=== PATIENT | male | born 1950 | race Caucasian/White ===

== ENCOUNTER 2017-02-24 07:39 | Emergency (ER) | payer MEDICARE, OTHER ==
[2017-02-24 07:43] VITALS: TEMP 96.4
[2017-02-24 08:32] VITALS: BP 159/76; PULSE 98; RESP 18
[2017-02-24] MEDS ORDERED: DEXAMETHASONE SOD PHOSPHATE 10 MG/ML 1 ML VIAL IM STA (08:40)
--- NOTE | 2017-02-24 08:42 | ED ---
General Adult HPI - General Chief complaint: Skin/Abscess/Foreign Body Stated complaint: Gout Time Seen by Provider: 02/24/17 08:15 Source: patient, RN notes reviewed Mode of arrival: ambulatory Limitations: no limitations - History of Present Illness Initial comments: She is a 66-year-old male who presents emergency room today with a chief complaint bilateral hand swelling over the last 3 weeks. He does admit that he has a history of gout states does feel similar but has been more painful. Patient states that he did see his family doctor was started on colchicine approximately 10 days ago. He states it has helped to the other areas of swelling and pain to his knees and down to his feet. States his hands are still feeling swollen and painful. He does admit that it's worse with movements. She states that these symptoms are consistent with gout that he's had in the past. He denies any other complaints or symptoms. Patient denies any recent fever, chills, shortness of breath, chest pain, back pain, abdominal pain, nausea or vomiting, headaches or visual changes, or any other complaints. - Related Data Home Medications Medication Instructions Recorded Confirmed Albuterol Sulfate [Ventolin HFA] 1 puff INHALATION DAILY PRN 06/09/14 10/18/14 Allopurinol 100 mg PO QAM 06/09/14 10/18/14 Lisinopril 20 mg PO QAM 06/09/14 10/18/14 Loratadine 10 mg PO QAM 06/09/14 10/18/14 Simvastatin 40 mg PO HS 06/09/14 10/18/14 aMILoride-HCTZ 5-50 mg [Moduretic 1 each PO QAM 06/09/14 10/18/14 5-50] glipiZIDE [Glipizide] 5 mg PO QAM 06/09/14 10/18/14 Zolpidem [Ambien] 10 mg PO HS PRN 06/11/14 10/18/14 Magnesium Oxide [Mag-Ox] 800 mg PO DAILY 07/13/14 10/18/14 Previous Rx's Medication Instructions Recorded Aspirin EC [Ecotrin Low Dose] 162 mg PO DAILY #30 tablet. 07/18/14 HYDROcodone/APAP 5-325MG [Oneida 1 each PO Q4HR PRN #30 tab 07/18/14 5-325] Metoprolol Tartrate 12.5 mg PO BID #60 tab 07/18/14 Tobramycin 0.3% Ophth Oint [Tobrex 1 applic RIGHT EYE TID #1 tube 10/18/14 0.3% Ophth Oint] Hydrocodone/Acetaminophen [Oneida 1 each PO Q6HR PRN #15 tab 02/24/17 5-325] Allergies Allergy/AdvReac Type Severity Reaction Status Date / Time No Known Allergies Allergy Verified 02/24/17 07:43 Review of Systems ROS Statement: Those systems with pertinent positive or pertinent negative responses have been documented in the HPI. ROS Other: All systems not noted in ROS Statement are negative. Past Medical History Past Medical History: Cancer, Diabetes Mellitus, Hyperlipidemia, Hypertension Additional Past Medical History / Comment(s): gout, hx skin cancer History of Any Multi-Drug Resistant Organisms: None Reported Past Surgical History: Heart Catheterization, Orthopedic Surgery Additional Past Surgical History / Comment(s): ORIF rt hand and ankle Past Anesthesia/Blood Transfusion Reactions: No Reported Reaction Past Psychological History: No Psychological Hx Reported Smoking Status: Former smoker Past Alcohol Use History: Occasional Past Drug Use History: None Reported - Past Family History Father Family Medical History: Cancer General Exam - General Exam Comments Initial Comments: General: The patient is awake and alert, in no distress, and does not appear acutely ill. Neck: The neck is supple, there is no tenderness or JVD. Cardiovascular: There is a regular rate and rhythm. No murmur, rub or gallop is appreciated. Respiratory: Lungs are clear to auscultation, respirations are non-labored, breath sounds are equal. No wheezes, stridor, rales, or rhonchi. Musculoskeletal: Does have some swelling down into the posterior aspect of the hands bilaterally. Hopefully tender over the MCP joints 2 through 5 bilaterally. No other bony tenderness on exam. He shows good range of motion. Sensations are intact. Pulses are equal bilaterally 2+. Strength is 5/5. Neurological: A&O x 3. CN II-XII intact, There are no obvious motor or sensory deficits. Coordination appears grossly intact. Speech is normal. Skin: Skin is warm and dry and no rashes or lesions are noted. No lymphangitic streaking. Psychiatric: Normal mood and affect. Limitations: no limitations Course Vital Signs 02/24/17 07:41 Temperature 96.4 F L Pulse Rate 88 Respiratory 20 Rate Blood Pressure 201/88 O2 Sat by Pulse 97 Oximetry Medical Decision Making - Medical Decision Making Case discussed in detail with attending physician Dr. Villagomez. 66-year-old male presenting for gout. Does not that he's had this in the past but pain is more severe. States is been using Aleve here in there for the pain but is not supposed be taking anti-inflammatories due to kidneys. Patient was for seen 10 days ago from the family doctor for this. Started colchicine. He states it has helped the pain to the knees and ankles but is still expressing discomfort to his hands bilaterally. Patient blood pressure elevated at triage. States he did not take his blood pressure medication. Repeat BP is improved. Patient states he'll take his medication when he gets home. Patient will be given dose of dexamethasone here in emergency room for the inflammation. Will be given a short prescription of Oneida for pain as she states she has taken this in the past. Patient is advised faulted family doctor or return here to the emergency room symptoms increase or worsen. Disposition Clinical Impression: Gout attack Disposition: HOME SELF-CARE Condition: Good Instructions: Gout (ED) Additional Instructions: Please use medication as discussed. Please follow-up with family doctor in the next 2 days of symptoms have not improved. Please return to emergency room if the symptoms increase or worsen or for any other concerns. Prescriptions: Hydrocodone/Acetaminophen [Oneida 5-325] 1 each PO Q6HR PRN #15 tab PRN Reason: Pain Referrals: Robbie Gardiner DO [Primary Care Provider] - 1-2 days Time of Disposition: 08:43
== END 2017-02-24 08:50 | disposition home or self-care (01) ==
LOC: EC 07:39
DX: M10.9 Gout, unspecified (principal); E11.9 Type 2 diabetes mellitus without complications; E78.5 Hyperlipidemia, unspecified; I10 Essential (primary) hypertension; Z85.828 Personal history of other malignant neoplasm of skin; Z87.891 Personal history of nicotine dependence; Z79.84 Long term (current) use of oral hypoglycemic drugs; Z79.899 Other long term (current) drug therapy
CPT/HCPCS: 99283; 96372; J1100

== ENCOUNTER 2017-07-26 06:42 | Day surgery (SDC) | payer MEDICARE, OTHER ==
[2017-07-25 08:41] VITALS: BMI 28.8
[~2017-07-26 06:42] MED LIST: LACTATED RINGERS 1,000 ML IV SCH
[2017-07-26 07:06] VITALS: TEMP 98.5
[2017-07-26 07:10] LABS: Glucose,Whole Blood 95 mg/dL (75-99)
[2017-07-26] MEDS ORDERED: PROPOFOL 10 MG/ML 20 ML VIAL IV ONE (07:50)
[2017-07-26] MEDS ORDERED: LIDOCAINE 1% INJ 10MG/ML (20 ML MDV) ONE (07:50)
--- NOTE | 2017-07-26 07:56 | P.GSHP ---
History of Present Illness H&P Date: 07/26/17 Chief Complaint: Screening colonoscopy This is a 66-year-old male referred from Dr. Robbie Mckeon. Patient rents today for screening colonoscopy. He denies any significant GI complaints. Past Medical History Past Medical History: Cancer, Diabetes Mellitus, Hyperlipidemia, Hypertension, Osteoarthritis (OA) Additional Past Medical History / Comment(s): gout, hx skin cancer,"LEAKY HEART VALVE " History of Any Multi-Drug Resistant Organisms: None Reported Past Surgical History: Heart Catheterization, Orthopedic Surgery Additional Past Surgical History / Comment(s): ORIF rt hand and ankle, repair of a heart valve, Past Anesthesia/Blood Transfusion Reactions: No Reported Reaction Smoking Status: Former smoker - Past Family History Father Family Medical History: Cancer Medications and Allergies Home Medications Medication Instructions Recorded Confirmed Type Lisinopril 10 mg PO BID 06/09/14 07/26/17 History glipiZIDE [Glipizide] 5 mg PO DAILY 06/09/14 07/26/17 History Zolpidem [Ambien] 10 mg PO HS PRN 06/11/14 07/26/17 History Magnesium Oxide [Mag-Ox] 400 mg PO DAILY 07/13/14 07/26/17 History Metoprolol Tartrate 12.5 mg PO BID #60 tab 07/18/14 07/26/17 Rx Allopurinol [Zyloprim] 100 mg PO DAILY 07/25/17 07/26/17 History Aspirin EC [Ecotrin Low Dose] 81 mg PO DAILY 07/25/17 07/26/17 History Cetirizine HCl [Zyrtec] 10 mg PO DAILY 07/25/17 07/26/17 History Furosemide [Lasix] 20 mg PO DAILY 07/25/17 07/26/17 History Rosuvastatin [Crestor] 10 mg PO HS 07/25/17 07/26/17 History traMADol HCL [Ultram] 50 mg PO Q6HR PRN 07/25/17 07/26/17 History Allergies Allergy/AdvReac Type Severity Reaction Status Date / Time No Known Allergies Allergy Verified 07/25/17 08:08 Surgical - Exam Vital Signs Temp Pulse Resp BP Pulse Ox 98.5 F 77 20 163/92 95 07/26/17 06:57 07/26/17 06:57 07/26/17 06:57 07/26/17 06:57 07/26/17 06:57 - General well developed, no distress - Eyes PERRL - ENT normal pinna - Neck no masses - Respiratory normal expansion - Cardiovascular Rhythm: regular - Abdomen Abdomen: soft, non tender Assessment and Plan Assessment: We'll perform screening colonoscopy.
--- NOTE | 2017-07-26 08:23 | P.OP ---
Date of Procedure: 07/26/17 Preoperative Diagnosis: Screening colonoscopy Postoperative Diagnosis: Multiple colonic polyps Procedure(s) Performed: Colonoscopy Anesthesia: MAC Surgeon: Brayan Leary Pathology: other (Multiple colonic polyps) Condition: stable Disposition: PACU Description of Procedure: The patient's placed on the endoscopy table in the lateral position. He received IV sedation. Digital rectal exam was performed which revealed no abnormalities. The flexible colonoscope was then placed patient anus and passed throughout the entire colon. The ileocecal valve was visualized. In the cecum there was a small polyp seen this removed with snare. Scope was withdrawn and the remainder the ascending colon appeared normal. In the proximal transverse colon there was another polyp seen this removed with snare. In the distal transverse colon another polyp seen this removed with snare. At the 80 cm tamir there was a peculiar sessile polyp which was biopsied. Due to the large basic could not be entirely removed. Scope was withdrawn and the remainder the descending colon appeared normal. There was a few scattered diverticuli in the sigmoid colon scope was brought back the rectum and this appeared normal. Scope was withdrawn for patient.
[2017-07-26 08:40] VITALS: RESP 16
[2017-07-26 08:52] VITALS: BP 168/93; PULSE 66
== END 2017-07-26 09:05 | disposition home or self-care (01) ==
LOC: ORWHC2ENDO 06:42
PROVIDERS: ATTEND Surgery
DX: Z12.11 Encounter for screening for malignant neoplasm of colon (principal); D12.3 Benign neoplasm of transverse colon; D12.0 Benign neoplasm of cecum; K57.30 Diverticulosis of large intestine without perforation or abscess without bleeding; E11.9 Type 2 diabetes mellitus without complications; Z79.84 Long term (current) use of oral hypoglycemic drugs; I10 Essential (primary) hypertension; E78.5 Hyperlipidemia, unspecified; M19.90 Unspecified osteoarthritis, unspecified site; M10.9 Gout, unspecified; Z85.828 Personal history of other malignant neoplasm of skin; Z87.891 Personal history of nicotine dependence; Z79.82 Long term (current) use of aspirin; Z79.899 Other long term (current) drug therapy
CPT/HCPCS: 45380; 45385; 88305

== ENCOUNTER → 2017-10-24 | Outpatient (CLI) | payer MEDICARE, OTHER ==
--- NOTE | 2017-10-24 21:13 | MR ---
EXAMINATION TYPE: MR lumbar spine wo con DATE OF EXAM: 10/24/2017 COMPARISON: None HISTORY: 67-year-old male with Low back pain TECHNIQUE: Multiplanar, multisequence images of the lumbar spine were acquired. Findings: Multiple bilateral renal cysts, largest on the right partially visualized at 4.6 cm. Otherwise, no pr evertebral or paravertebral soft tissue abnormality seen. Degenerative changes present at both SI joints. There is S-shaped scoliosis of the lumbar spine. Vertebral body heights are preserved and alignment is maintained. Mild heterogeneous marrow signal without suspicious for marrow replacement. Conus medullaris is normal. Multilevel degenerative disc disease related to desiccated, mildly narrowed disc variable disc bulgin g. Facet arthropathy throughout and some level of the ligamentum flavum thickening. At T12-L1, minimal bulging disc without significant canal or foraminal stenosis. Left-sided facet art hropathy is noted. At L1-L2, minimal bulging discs with left-sided facet arthropathy. No significant canal or foraminal stenosis. At L2-L3, minimal bulging disc with left-sided facet arthropathy. No significant canal or foraminal s tenosis. At L3-L4, mild disc bulge with facet arthropathy but no significant canal or foraminal stenosis. At L4-L5, bulging disc and facet degenerative change changes results in moderate right and mild left neuroforaminal stenosis but left lateral disc osteophyte complex appears to abut and may impinge the left extraforaminal L4 nerve root. There also may be contact of the traversing left L5 nerve root. At L5-S1, bulging disc and facet degenerative change. Changes in result in mild right neuroforaminal stenosis. Right lateral disc osteophyte complex may abut the extraforaminal right L5 nerve root. IMPRESSION: 1. S-shaped scoliosis of the lumbar spine with mild multilevel degenerative disc disease and scattere d facet arthropathy. 2. At L4-L5, changes result in moderate right and mild left neuroforaminal stenosis fell with left la teral disc osteophyte complex possibly impinging the left extraforaminal L4 nerve root. There may als o be contact of the traversing left L5 nerve root at this level. 3. At L5-S1, right lateral disc osteophyte complex may abut the extraforaminal right L5 nerve root. C orrelate for corresponding radicular symptoms. 4. No canal compromise.
== END | disposition home or self-care (01) ==
LOC: RADMRIMAIN 08:12
PROVIDERS: ATTEND Physical Medicine & Rehabilitation
DX: M99.73 Connective tissue and disc stenosis of intervertebral foramina of lumbar region (principal); M51.36 Other intervertebral disc degeneration, lumbar region; M46.96 Unspecified inflammatory spondylopathy, lumbar region; M41.86 Other forms of scoliosis, lumbar region; E11.9 Type 2 diabetes mellitus without complications
CPT/HCPCS: 72148

== ENCOUNTER 2018-11-11 07:20 | Emergency (ER) | payer MEDICARE, OTHER ==
[2018-11-11] MEDS ORDERED: OXYMETAZOLINE 0.05% NASL SPRAY 1 SPRAY BOTTLE NASAL STA (07:44)
[2018-11-11 07:46] VITALS: RESP 16; TEMP 98.6
[2018-11-11] MEDS ORDERED: LISINOPRIL 10 MG TAB PO STA (07:51)
[2018-11-11] MEDS ORDERED: METOPROLOL TARTRATE 12.5 MG TAB PO STA (07:52)
--- NOTE | 2018-11-11 08:01 | ED ---
General Adult HPI - General Chief complaint: ENT Stated complaint: nosebleed Time Seen by Provider: 11/11/18 07:43 Source: patient, RN notes reviewed Mode of arrival: ambulatory Limitations: no limitations - History of Present Illness Initial comments: 68-year-old male presents emergency Department with chief complaint of epistaxis. Patient states started abruptly this morning. He does take aspirin at home. Patient states that nosebleeds in the past but never to this extent. Patient did not take his blood pressure medication this morning. Denies any headache, dizziness, fever, chills, sore throat. - Related Data Home Medications Medication Instructions Recorded Confirmed Lisinopril 10 mg PO BID 06/09/14 07/26/17 glipiZIDE [Glipizide] 5 mg PO DAILY 06/09/14 07/26/17 Zolpidem [Ambien] 10 mg PO HS PRN 06/11/14 07/26/17 Magnesium Oxide [Mag-Ox] 400 mg PO DAILY 07/13/14 07/26/17 Allopurinol [Zyloprim] 100 mg PO DAILY 07/25/17 07/26/17 Aspirin EC [Ecotrin Low Dose] 81 mg PO DAILY 07/25/17 07/26/17 Cetirizine HCl [Zyrtec] 10 mg PO DAILY 07/25/17 07/26/17 Furosemide [Lasix] 20 mg PO DAILY 07/25/17 07/26/17 Rosuvastatin [Crestor] 10 mg PO HS 07/25/17 07/26/17 traMADol HCL [Ultram] 50 mg PO Q6HR PRN 07/25/17 07/26/17 Previous Rx's Medication Instructions Recorded Metoprolol Tartrate 12.5 mg PO BID #60 tab 07/18/14 Allergies Allergy/AdvReac Type Severity Reaction Status Date / Time No Known Allergies Allergy Verified 11/11/18 08:29 Review of Systems ROS Statement: Those systems with pertinent positive or pertinent negative responses have been documented in the HPI. ROS Other: All systems not noted in ROS Statement are negative. Past Medical History Past Medical History: Cancer, Diabetes Mellitus, Hyperlipidemia, Hypertension, Osteoarthritis (OA) Additional Past Medical History / Comment(s): gout, hx skin cancer,"LEAKY HEART VALVE " History of Any Multi-Drug Resistant Organisms: None Reported Past Surgical History: Heart Catheterization, Orthopedic Surgery Additional Past Surgical History / Comment(s): ORIF rt hand and ankle, repair of a heart valve, Past Anesthesia/Blood Transfusion Reactions: No Reported Reaction Past Psychological History: No Psychological Hx Reported Smoking Status: Former smoker - Past Family History Father Family Medical History: Cancer General Exam Limitations: no limitations General appearance: alert, in no apparent distress Head exam: Present: atraumatic, normocephalic, normal inspection Eye exam: Present: normal appearance, PERRL, EOMI. Absent: scleral icterus, conjunctival injection, periorbital swelling ENT exam: Present: normal oropharynx, mucous membranes moist, TM's normal bilaterally, normal external ear exam, other (Mild blood noted from the left nostril, clots noted no site of the bleeding at this time) Neck exam: Present: normal inspection, full ROM. Absent: tenderness, meningismus, lymphadenopathy Respiratory exam: Present: normal lung sounds bilaterally. Absent: respiratory distress, wheezes, rales, rhonchi, stridor Cardiovascular Exam: Present: regular rate, normal rhythm, normal heart sounds. Absent: systolic murmur, diastolic murmur, rubs, gallop, clicks Neurological exam: Present: alert, oriented X3 Skin exam: Present: warm, dry, intact, normal color. Absent: rash Course Vital Signs 11/11/18 07:41 Temperature 98.6 F Pulse Rate 98 Respiratory 16 Rate Blood Pressure 168/95 O2 Sat by Pulse 95 Oximetry Medical Decision Making - Medical Decision Making 68-year-old male presented for epistaxis. Patient was given Afrin, nose clamp. Reevaluated after clots were cleared there's been no rebleeding after 30 minutes of observing. Patient was given blood pressure medications blood pressure is improved. Patient will be discharged will be discharged with no clamp and follow-up with PCP. Disposition Clinical Impression: Epistaxis Disposition: HOME SELF-CARE Condition: Stable Instructions (If sedation given, give patient instructions): Nosebleed (ED) Additional Instructions: Please return to the Emergency Department if symptoms worsen or any other concerns. Is patient prescribed a controlled substance at d/c from ED?: No Referrals: Robbie Gardiner DO [Primary Care Provider] - 1-2 days Time of Disposition: 08:42
[2018-11-11 08:42] VITALS: BP 166/83; PULSE 96
== END 2018-11-11 08:45 | disposition home or self-care (01) ==
LOC: EC 07:20
DX: R04.0 Epistaxis (principal); E11.9 Type 2 diabetes mellitus without complications; E78.5 Hyperlipidemia, unspecified; I10 Essential (primary) hypertension; Z79.84 Long term (current) use of oral hypoglycemic drugs; Z79.82 Long term (current) use of aspirin; Z79.899 Other long term (current) drug therapy; Z87.891 Personal history of nicotine dependence; Z85.828 Personal history of other malignant neoplasm of skin; Z95.5 Presence of coronary angioplasty implant and graft
CPT/HCPCS: 99283

== ENCOUNTER 2019-05-04 04:08 | Inpatient (IN) | payer MEDICARE, OTHER ==
[2019-05-04 04:54] LABS: Basophils % (A) 0 %; Eosinophils # (A) 0.1 k/uL (0-0.7); Eosinophils % (A) 1 %; HGB 14.5 gm/dL (13.0-17.5); Lymphocytes # (A) 0.3 k/uL (1.0-4.8); Lymphocytes % (A) 3 %; MCH 32.4 pg (25.0-35.0); MCHC 33.8 g/dL (31.0-37.0); MCV 95.7 fL (80.0-100.0); Mean Platelet Volume 9.1; Monocytes # (A) 0.1 k/uL (0-1.0); Monocytes % (A) 1 %; Neutrophils # (A) 10.2 k/uL (1.3-7.7); Neutrophils % (A) 95 %; Platelet Count 145 k/uL (150-450); RBC 4.49 m/uL (4.30-5.90); RDW 13.3 % (11.5-15.5); WBC 10.8 k/uL (3.8-10.6)
[2019-05-04 05:03] LABS: Calcium 9.1 mg/dL (8.4-10.2); Potassium 5.3 mmol/L (3.5-5.1); Total Bilirubin 0.9 mg/dL (0.2-1.3); Total Protein 6.6 g/dL (6.3-8.2)
[2019-05-04 05:11] LABS: INR 0.9 (<1.2); Prothrombin Time 9.9 sec (9.0-12.0)
--- NOTE | 2019-05-04 05:20 | XR ---
EXAMINATION TYPE: XR chest 1V portable DATE OF EXAM: 05/04/2019 COMPARISON: 10/25/2015 HISTORY: Pneumonia. Short of breath. TECHNIQUE: FINDINGS: There is no heart failure nor confluent pneumonic infiltrate. Costophrenic angles are clear . There are sternal wires. Thoracic aorta is atheromatous. There are chest leads. IMPRESSION: No active cardiopulmonary disease. Normal heart. No change.
[2019-05-04 05:41] LABS: Partial Thromboplastin Time 20.5 sec (22.0-30.0)
[2019-05-04] MEDS ORDERED: ACETAMINOPHEN TAB 325 MG TAB PO STA (06:39)
--- NOTE | 2019-05-04 07:07 | ED ---
General Adult HPI - General Source: patient, EMS Mode of arrival: EMS Limitations: no limitations - History of Present Illness -: hour(s) Quality: dull Consistency: constant Improves with: none Worsens with: none Associated Symptoms: cough, shortness of breath Treatments Prior to Arrival: none <George Posada - Last Filed: 05/04/19 07:07> <Osmani Leon - Last Filed: 05/04/19 08:42> - General Chief complaint: Chest Pain Stated complaint: JANICE Time Seen by Provider: 05/04/19 04:43 - History of Present Illness Initial comments: Patient is 68-year-old man who comes by ambulance to be evaluated for shortness of breath. The patient states this is been getting worse over the past number of hours. In addition he states that he was feeling so short of breath that when he tried to get up he fell and may have passed out. On arrival here, patient also acknowledges having a cough with occasional sputum. Patient found to have a fever here. He was not aware of this at home. (George Posada) - Related Data Home Medications Medication Instructions Recorded Confirmed Lisinopril 10 mg PO BID 06/09/14 07/26/17 glipiZIDE [Glipizide] 5 mg PO DAILY 06/09/14 07/26/17 Zolpidem [Ambien] 10 mg PO HS PRN 06/11/14 07/26/17 Magnesium Oxide [Mag-Ox] 400 mg PO DAILY 07/13/14 07/26/17 Allopurinol [Zyloprim] 100 mg PO DAILY 07/25/17 07/26/17 Aspirin EC [Ecotrin Low Dose] 81 mg PO DAILY 07/25/17 07/26/17 Cetirizine HCl [Zyrtec] 10 mg PO DAILY 07/25/17 07/26/17 Furosemide [Lasix] 20 mg PO DAILY 07/25/17 07/26/17 Rosuvastatin [Crestor] 10 mg PO HS 07/25/17 07/26/17 traMADol HCL [Ultram] 50 mg PO Q6HR PRN 07/25/17 07/26/17 Previous Rx's Medication Instructions Recorded Metoprolol Tartrate 12.5 mg PO BID #60 tab 07/18/14 Allergies Allergy/AdvReac Type Severity Reaction Status Date / Time No Known Allergies Allergy Verified 11/11/18 08:29 Review of Systems ROS Other: All systems not noted in ROS Statement are negative. Constitutional: Denies: fever, chills Respiratory: Reports: cough, dyspnea. Denies: wheezes Cardiovascular: Denies: chest pain, palpitations, edema Gastrointestinal: Denies: abdominal pain, nausea, vomiting Genitourinary: Denies: dysuria, hematuria Musculoskeletal: Denies: back pain Skin: Denies: rash Neurological: Denies: headache, weakness, numbness <SapnabelkisGeorge - Last Filed: 05/04/19 07:07> ROS Other: All systems not noted in ROS Statement are negative. <Osmani Leon - Last Filed: 05/04/19 08:42> ROS Statement: Those systems with pertinent positive or pertinent negative responses have been documented in the HPI. Past Medical History Past Medical History: Cancer, Diabetes Mellitus, Hyperlipidemia, Hypertension, Osteoarthritis (OA) Additional Past Medical History / Comment(s): gout, hx skin cancer,"LEAKY HEART VALVE " History of Any Multi-Drug Resistant Organisms: None Reported Past Surgical History: Heart Catheterization, Orthopedic Surgery Additional Past Surgical History / Comment(s): ORIF rt hand and ankle, repair of a heart valve, Past Anesthesia/Blood Transfusion Reactions: No Reported Reaction Past Psychological History: No Psychological Hx Reported Smoking Status: Former smoker Past Alcohol Use History: Daily Past Drug Use History: None Reported - Past Family History Father Family Medical History: Cancer <George Posada - Last Filed: 05/04/19 07:07> General Exam Limitations: no limitations General appearance: alert, in no apparent distress Head exam: Present: atraumatic, normocephalic Eye exam: Present: normal appearance. Absent: scleral icterus, conjunctival injection ENT exam: Present: mucous membranes dry Neck exam: Present: normal inspection Respiratory exam: Present: respiratory distress, wheezes. Absent: rales, rhonchi, stridor, accessory muscle use, decreased breath sounds, prolonged expiratory Cardiovascular Exam: Present: regular rate, tachycardia, normal heart sounds. Absent: systolic murmur, diastolic murmur, rubs, gallop GI/Abdominal exam: Present: soft. Absent: distended, tenderness, guarding, rebound, rigid, mass Extremities exam: Present: normal inspection, normal capillary refill. Absent: pedal edema, calf tenderness Back exam: Present: normal inspection. Absent: CVA tenderness (R), CVA tenderness (L) Neurological exam: Present: alert. Absent: oriented X3, CN II-XII intact Skin exam: Present: warm, dry, intact, normal color. Absent: rash <TrachyGeorge - Last Filed: 05/04/19 07:07> Course Vital Signs 05/04/19 05/04/19 05/04/19 04:10 04:13 04:20 Temperature 102.1 F H Pulse Rate 121 H Respiratory 22 Rate Blood Pressure 109/62 109/62 O2 Sat by Pulse 99 96 100 Oximetry 05/04/19 05/04/19 05/04/19 04:30 04:39 04:40 Temperature Pulse Rate 117 H 116 H Respiratory 28 H 20 22 Rate Blood Pressure 109/62 102/58 O2 Sat by Pulse 96 97 Oximetry 05/04/19 05/04/19 05/04/19 04:50 05:00 05:10 Temperature Pulse Rate 120 H 120 H 120 H Respiratory 20 26 H 29 H Rate Blood Pressure 102/58 102/58 105/78 O2 Sat by Pulse 100 96 100 Oximetry 05/04/19 05/04/19 05/04/19 05:20 05:25 05:30 Temperature Pulse Rate 117 H Respiratory Rate Blood Pressure 105/78 105/78 O2 Sat by Pulse 90 L 100 100 Oximetry 05/04/19 05/04/19 05/04/19 05:40 05:50 06:00 Temperature Pulse Rate 113 H 114 H 107 H Respiratory 69 H Rate Blood Pressure 94/58 94/58 94/58 O2 Sat by Pulse 98 98 98 Oximetry 05/04/19 05/04/19 05/04/19 06:07 06:30 06:47 Temperature 101.7 F H Pulse Rate 99 106 H Respiratory 20 Rate Blood Pressure 99/85 100/68 O2 Sat by Pulse 98 99 Oximetry 05/04/19 05/04/19 05/04/19 07:44 08:00 08:15 Temperature 99.1 F Pulse Rate 93 92 89 Respiratory 18 22 Rate Blood Pressure 101/58 O2 Sat by Pulse 98 98 Oximetry 05/04/19 05/04/19 08:29 08:38 Temperature Pulse Rate 86 89 Respiratory 22 Rate Blood Pressure 101/61 O2 Sat by Pulse 99 Oximetry EKG Findings - EKG Results: EKG: interpreted by ERMD, sinus rhythm, normal QRS EKG shows: tachycardia (Rate 121 bpm) - Blocks, [place], Hypertrophy, ST Abn: QRS axis and voltage: right axis deviation (+90 to +180) Repolarization changes or abnormalities: nonspecific abnormality, ST segment, and/or T wave <George Posada - Last Filed: 05/04/19 07:07> Procedures - [place] Protocol (Time Out) Nurse: Dulce Lombardo <George Posada - Last Filed: 05/04/19 07:07> Medical Decision Making - Lab Data Result diagrams: 05/04/19 04:40 05/04/19 04:40 <George Posada - Last Filed: 05/04/19 07:07> - Lab Data Result diagrams: 05/04/19 04:40 05/04/19 04:40 <Osmani Leon - Last Filed: 05/04/19 08:42> - Medical Decision Making I reviewed the CAT scan and noticed that the patient a clavicle fracture. According to the sister he had fallen a slight forward onto his chest onto a table or nightstand. Patient was very tender in the left clavicular head region. (Osmani Leon) - Lab Data Lab Results 05/04/19 05/04/19 05/04/19 Range/Units 04:40 04:40 04:40 WBC 10.8 H (3.8-10.6) k/uL RBC 4.49 (4.30-5.90) m/uL Hgb 14.5 (13.0-17.5) gm/dL Hct 43.0 (39.0-53.0) % MCV 95.7 (80.0-100.0) fL MCH 32.4 (25.0-35.0) pg MCHC 33.8 (31.0-37.0) g/dL RDW 13.3 (11.5-15.5) % Plt Count 145 L (150-450) k/uL Neutrophils % 95 % Lymphocytes % 3 % Monocytes % 1 % Eosinophils % 1 % Basophils % 0 % Neutrophils # 10.2 H (1.3-7.7) k/uL Lymphocytes # 0.3 L (1.0-4.8) k/uL Monocytes # 0.1 (0-1.0) k/uL Eosinophils # 0.1 (0-0.7) k/uL Basophils # 0.0 (0-0.2) k/uL PT 9.9 (9.0-12.0) sec INR 0.9 (<1.2) APTT 20.5 L (22.0-30.0) sec D-Dimer (<0.60) mg/L FEU Sodium 127 L (137-145) mmol/L Potassium 5.3 H (3.5-5.1) mmol/L Chloride 90 L (98-107) mmol/L Carbon Dioxide 22 (22-30) mmol/L Anion Gap 15 mmol/L BUN 44 H (9-20) mg/dL Creatinine 1.01 (0.66-1.25) mg/dL Est GFR (CKD-EPI)AfAm 88 (>60 ml/min/1.73 sqM) Est GFR (CKD-EPI)NonAf 76 (>60 ml/min/1.73 sqM) Glucose 407 H (74-99) mg/dL Lactic Ac Sepsis Rflx Plasma Lactic Acid Ross (0.7-2.0) mmol/L Calcium 9.1 (8.4-10.2) mg/dL Total Bilirubin 0.9 (0.2-1.3) mg/dL AST 31 (17-59) U/L ALT 18 (4-49) U/L Alkaline Phosphatase 111 (38-126) U/L Troponin I (0.000-0.034) ng/mL NT-Pro-B Natriuret Pep pg/mL Total Protein 6.6 (6.3-8.2) g/dL Albumin 3.0 L (3.5-5.0) g/dL Influenza Type A RNA (Not Detectd) Influenza Type B (PCR) (Not Detectd) 05/04/19 05/04/19 05/04/19 Range/Units 04:40 04:40 04:40 WBC (3.8-10.6) k/uL RBC (4.30-5.90) m/uL Hgb (13.0-17.5) gm/dL Hct (39.0-53.0) % MCV (80.0-100.0) fL MCH (25.0-35.0) pg MCHC (31.0-37.0) g/dL RDW (11.5-15.5) % Plt Count (150-450) k/uL Neutrophils % % Lymphocytes % % Monocytes % % Eosinophils % % Basophils % % Neutrophils # (1.3-7.7) k/uL Lymphocytes # (1.0-4.8) k/uL Monocytes # (0-1.0) k/uL Eosinophils # (0-0.7) k/uL Basophils # (0-0.2) k/uL PT (9.0-12.0) sec INR (<1.2) APTT (22.0-30.0) sec D-Dimer (<0.60) mg/L FEU Sodium (137-145) mmol/L Potassium (3.5-5.1) mmol/L Chloride (98-107) mmol/L Carbon Dioxide (22-30) mmol/L Anion Gap mmol/L BUN (9-20) mg/dL Creatinine (0.66-1.25) mg/dL Est GFR (CKD-EPI)AfAm (>60 ml/min/1.73 sqM) Est GFR (CKD-EPI)NonAf (>60 ml/min/1.73 sqM) Glucose (74-99) mg/dL Lactic Ac Sepsis Rflx Plasma Lactic Acid Ross 3.2 H* (0.7-2.0) mmol/L Calcium (8.4-10.2) mg/dL Total Bilirubin (0.2-1.3) mg/dL AST (17-59) U/L ALT (4-49) U/L Alkaline Phosphatase (38-126) U/L Troponin I 0.657 H* (0.000-0.034) ng/mL NT-Pro-B Natriuret Pep 4860 pg/mL Total Protein (6.3-8.2) g/dL Albumin (3.5-5.0) g/dL Influenza Type A RNA (Not Detectd) Influenza Type B (PCR) (Not Detectd) 05/04/19 05/04/19 05/04/19 Range/Units 04:40 04:47 05:33 WBC (3.8-10.6) k/uL RBC (4.30-5.90) m/uL Hgb (13.0-17.5) gm/dL Hct (39.0-53.0) % MCV (80.0-100.0) fL MCH (25.0-35.0) pg MCHC (31.0-37.0) g/dL RDW (11.5-15.5) % Plt Count (150-450) k/uL Neutrophils % % Lymphocytes % % Monocytes % % Eosinophils % % Basophils % % Neutrophils # (1.3-7.7) k/uL Lymphocytes # (1.0-4.8) k/uL Monocytes # (0-1.0) k/uL Eosinophils # (0-0.7) k/uL Basophils # (0-0.2) k/uL PT (9.0-12.0) sec INR (<1.2) APTT (22.0-30.0) sec D-Dimer 12.41 H (<0.60) mg/L FEU Sodium (137-145) mmol/L Potassium (3.5-5.1) mmol/L Chloride (98-107) mmol/L Carbon Dioxide (22-30) mmol/L Anion Gap mmol/L BUN (9-20) mg/dL Creatinine (0.66-1.25) mg/dL Est GFR (CKD-EPI)AfAm (>60 ml/min/1.73 sqM) Est GFR (CKD-EPI)NonAf (>60 ml/min/1.73 sqM) Glucose (74-99) mg/dL Lactic Ac Sepsis Rflx Y Plasma Lactic Acid Ross (0.7-2.0) mmol/L Calcium (8.4-10.2) mg/dL Total Bilirubin (0.2-1.3) mg/dL AST (17-59) U/L ALT (4-49) U/L Alkaline Phosphatase (38-126) U/L Troponin I (0.000-0.034) ng/mL NT-Pro-B Natriuret Pep pg/mL Total Protein (6.3-8.2) g/dL Albumin (3.5-5.0) g/dL Influenza Type A RNA Not Detected (Not Detectd) Influenza Type B (PCR) Not Detected (Not Detectd) Disposition <George Posdaa - Last Filed: 05/04/19 07:07> <Osmani Leon - Last Filed: 05/04/19 08:42> Clinical Impression: Clavicle fracture
[2019-05-04] MEDS ORDERED: ALBUTEROL NEBULIZED 2.5 MG/3 ML INHALATION PRN (07:39)
[2019-05-04] MEDS ORDERED: PNEUMONIA PROTOCOL UTILIZED 1 EACH MISC PO PRN (07:39)
[2019-05-04] MEDS ORDERED: HEPARIN SODIUM,PORCINE 5,000 UNIT/ML 1 ML VIAL IV ONE (07:53)
--- NOTE | 2019-05-04 07:58 | CT ---
EXAMINATION TYPE: CT chest angio for PE DATE OF EXAM: 05/04/2019 COMPARISON: Radiograph same day HISTORY: 68-year-old male Shortness of breath. TECHNIQUE: Contiguous axial scanning of the chest performed with IV Contrast, patient injected with 1 00 mL of Isovue 370. Coronal/sagittal MIP reconstructions performed. CT DLP: 632.7 mGycm Automated exposure control for dose reduction was used. FINDINGS: There is a focal 5.1 x 5.3 cm soft tissue density along the superior aspect of the left sternoclavicu lar joint. Corresponding thickening to the sternal head of the sternocleidomastoid and soft tissue th ickening extending along the presternal region measuring 3.2 x 2.2 cm. Comminuted nondisplaced fractu res left clavicular head. Heart upper limits of normal in size without pericardial effusion. No flattening of the interventricu lar septum or reflux of contrast into the hepatic veins. Aortic valvular calcifications are present. Median sternotomy wires. Aorta normal caliber with mild to moderate atherosclerotic arch calcifications and conventional branc norman anatomy. No thoracic lymphadenopathy by CT size criteria. The patient is breathing during the scan. This markedly degrades assessment for pulmonary emboli. No large central embolus. Many lumbar branch, segmental, and more distal arterial branches are nondiagno stic due to the extent of remaining motion.. No carmelita consolidation or pleural effusion Frontal artifacts. Visualized upper abdomen is partially visualized left renal hypodensities, likely cysts measuring up to at least 3.0 cm. Bones: Some patchy lucencies within the sternum probably chronic postsurgical change. IMPRESSION: 1. Exam degraded by patient breathing during the scan. No large central pulmonary embolus. Many of th e lobar, segmental, and more distal arterial branches are nondiagnostic and emboli in these locations cannot be excluded on the basis of this exam. 2. Focal 5.3 x 5.1 cm soft tissue density along the superior aspect of the left sternoclavicular join t, thickening to the sternal head of the sternocleidomastoid, and contiguous soft tissue thickening e xtending down along the left presternal region measuring 3.2 x 2.2 cm. Corresponding comminuted fract ures left clavicular head. Correlate for hematoma or infectious phlegmon.
[2019-05-04] MEDS: IPRATROPIUM-ALBUTEROL 3 ML NEB INHALATION SCH ×4 (08:14→19:48)
[2019-05-04] MEDS: SODIUM CHLORIDE 0.9% 1,000 ML IV SCH ×4 (08:27→22:55)
[2019-05-04] MEDS: HEPARIN SOD,PORK IN 0.45% NACL 25,000 UNIT in 0.45% NACL 1 250ML.BAG IV SCH (08:32)
[2019-05-04] MEDS: HEPARIN SODIUM,PORCINE 5,000 UNIT/ML 1 ML VIAL SQ SCH ×3 (08:33→22:53)
[2019-05-04] MEDS ORDERED: SODIUM CHLORIDE 0.9% 1,000 ML IV ONE (08:50)
[2019-05-04 09:25] LABS: Glucose,Whole Blood 394 mg/dL (75-99)
[2019-05-04 11:15] LABS: VBG PH 7.35 (7.31-7.41)
[2019-05-04 11:37] LABS: Glucose,Whole Blood 379 mg/dL (75-99)
[2019-05-04] MEDS: AZITHROMYCIN 500 MG TAB PO SCH ×2 (12:13→12:48)
--- NOTE | 2019-05-04 12:42 | P.CRDCN ---
History of Present Illness History of present illness: HISTORY OF PRESENTING ILLNESS This is a pleasant 68-year-old male past medical history significant for valvular heart disease status post bioprosthetic aortic valve replacement in 2014, peripheral vascular disease status post aortic endarterectomy 2015, diabetes mellitus, hypertension and dyslipidemia. He admits to daily alcohol intake. 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 We have been asked to see in consultation for elevated troponin. He initially presented to the emergency department with symptoms of shortness of breath, cough and fall. He is unsure. It corresponding loss of consciousness. He states that he lost his balance falling on the left side of his body. He was noted to be febrile on admission with a temperature of 101.7. He is seen and examined resting comfortably in bed on BiPAP. He is laying flat in no acute distress. He denies symptoms of chest pain, dizziness or palpitations. He states his breathing is better since starting BiPAP. DIAGNOSTICS EKG reveals sinus tachycardia with a first-degree AV block and a rightward axis heart rate of 121. Chest xray negative for an acute cardiopulmonary process. CTA negative for pulmonary embolism with a focal soft tissue density along the superior aspect of the left sternoclavicular joint with corresponding thickening of the sternal head of this sternocleidomastoid soft tissue thickening extending along the pre-sternal region with a comminuted nondisplaced fracture of the left clavicular head. Laboratory reviewed, WBC 10.8, hemoglobin 14.5, platelets 145, d-dimer 12.41, sodium 127, potassium 5.3, creatinine 1.01 with a GFR 76, lactic acid on admission 3. 2 repeat 1.0, initial troponin 0.657 and NT proBNP 4860. Current cardiac medications include aspirin 81 mg daily, Lasix 20 mg daily, lisinopril 10 mg twice a day, Lopressor 12.5 mg twice a day and rosuvastatin 10 mg at bedtime. REVIEW OF SYSTEMS At the time of my exam: CONSTITUTIONAL: Denies fever or chills. CARDIOVASCULAR: Denies chest pain, shortness of breath, orthopnea, PND or palpitations. RESPIRATORY: Denies cough. GASTROINTESTINAL: Denies abdominal pain, diarrhea, constipation, nausea or vomiting. MUSCULOSKELETAL: Denies myalgias. NEUROLOGIC: Denies numbness, tingling or weakness. ENDOCRINE: Denies fatigue, weight change, polydipsia or polyurina. GENITOURINARY: Denies burning, hematuria or urgency with micturation. HEMATOLOGIC: Denies history of anemia or bleeding. PHYSICAL EXAMINATION Blood pressure 101/61 heart rate 89 afebrile and maintaining oxygen saturation on BiPAP. CONSTITUTIONAL: No apparent distress. HEENT: Head is normocephalic. Pupils are equal, round. Sclerae anicteric. Mucous membranes of the mouth are moist. No JVD. No carotid bruit. CHEST EXAMINATION: Lungs are clear to auscultation. No chest wall tenderness is noted on palpation or with deep breathing. HEART EXAMINATION: Regular rate and rhythm. S1, S2 heard. Faint systolic ejection murmur at the base, no gallops or rub. ABDOMEN: Soft, nontender. Positive bowel sounds. EXTREMITIES: 2+ peripheral pulses, no lower extremity edema and no calf tenderness. NEUROLOGIC EXAMINATION: Patient is awake, alert and oriented x3. ASSESSMENT Elevated troponin, may be related to underlying infectious process with fever and lactic acidosis. Lactic acidosis Febrile illness Hyponatremia Leukocytosis Thrombocytopenia History of valvular heart disease status post bioprosthetic aortic valve replacement Hypertension Dyslipidemia Peripheral vascular disease Alcohol abuse PLAN Continue to trend troponins. Continue heparin infusion. Obtain 2-D echocardiogram and Doppler study to assess cardiac structure and function. Resume aspirin, rosuvastatin, lisinopril, Lopressor and Lasix as previously ordered. Further recommendations to follow based upon clinical course. Thank you kindly for this consultation. Nurse Practitioner note has been reviewed, I agree with a documented findings and plan of care. Patient was seen and examined. Past Medical History Past Medical History: Cancer, Diabetes Mellitus, Hyperlipidemia, Hypertension, Osteoarthritis (OA) Additional Past Medical History / Comment(s): gout, hx skin cancer,"LEAKY HEART VALVE " History of Any Multi-Drug Resistant Organisms: None Reported Past Surgical History: Heart Catheterization, Orthopedic Surgery Additional Past Surgical History / Comment(s): ORIF rt hand and ankle, repair of a heart valve, Past Anesthesia/Blood Transfusion Reactions: No Reported Reaction Past Psychological History: No Psychological Hx Reported Smoking Status: Former smoker Past Alcohol Use History: Daily Past Drug Use History: None Reported - Past Family History Father Family Medical History: Cancer Medications and Allergies Home Medications Medication Instructions Recorded Confirmed Type Lisinopril 15 mg PO HS 06/09/14 05/04/19 History Zolpidem [Ambien] 10 mg PO HS 06/11/14 05/04/19 History Magnesium Oxide [Mag-Ox] 400 mg PO DAILY 07/13/14 05/04/19 History Metoprolol Tartrate 12.5 mg PO BID #60 tab 07/18/14 05/04/19 Rx Allopurinol [Zyloprim] 100 mg PO DAILY 07/25/17 05/04/19 History Aspirin EC [Ecotrin Low Dose] 81 mg PO DAILY 07/25/17 05/04/19 History Cetirizine HCl [Zyrtec] 10 mg PO DAILY 07/25/17 05/04/19 History Furosemide [Lasix] 20 mg PO DAILY 07/25/17 05/04/19 History Rosuvastatin [Crestor] 10 mg PO HS 07/25/17 05/04/19 History Albuterol Sulfate [Ventolin HFA] 2 puff INHALATION RT-QID PRN 05/04/19 05/04/19 History Budesonide [Pulmicort] 0.5 mg INHALATION RT-BID 05/04/19 05/04/19 History Empagliflozin [Jardiance] 10 mg PO DAILY 05/04/19 05/04/19 History HYDROcodone/APAP 5-325MG [[place] 1 tab PO Q4H PRN 05/04/19 05/04/19 History 5-325] Montelukast [Singulair] 10 mg PO HS 05/04/19 05/04/19 History glipiZIDE [Glucotrol] 10 mg PO AC-BID 05/04/19 05/04/19 History predniSONE See Taper PO DAILY 05/04/19 05/04/19 History Allergies Allergy/AdvReac Type Severity Reaction Status Date / Time No Known Allergies Allergy Verified 11/11/18 08:29 Physical Exam Vitals: Vital Signs Temp Pulse Resp BP Pulse Ox 05/04/19 08:38 89 22 101/61 99 05/04/19 08:29 86 05/04/19 08:15 89 05/04/19 08:00 92 22 101/58 98 05/04/19 07:44 99.1 F 93 18 98 05/04/19 06:47 106 H 20 100/68 99 05/04/19 06:30 99 99/85 98 05/04/19 06:07 101.7 F H 05/04/19 06:00 107 H 94/58 98 05/04/19 05:50 114 H 94/58 98 05/04/19 05:40 113 H 69 H 94/58 98 05/04/19 05:30 117 H 105/78 100 05/04/19 05:25 100 05/04/19 05:20 105/78 90 L 05/04/19 05:10 120 H 29 H 105/78 100 05/04/19 05:00 120 H 26 H 102/58 96 05/04/19 04:50 120 H 20 102/58 100 05/04/19 04:40 116 H 22 102/58 97 05/04/19 04:39 20 05/04/19 04:30 117 H 28 H 109/62 96 05/04/19 04:20 109/62 100 05/04/19 04:13 96 05/04/19 04:10 102.1 F H 121 H 22 109/62 99 Intake and Output 05/03/19 05/04/19 05/04/19 21:59 06:59 14:59 Other: Weight Results 05/04/19 04:40 05/04/19 04:40 Cardiac Enzymes 05/04/19 05/04/19 Range/Units 04:40 04:40 AST 31 (17-59) U/L Troponin I 0.657 H* (0.000-0.034) ng/mL Coagulation 05/04/19 Range/Units 04:40 PT 9.9 (9.0-12.0) sec APTT 20.5 L (22.0-30.0) sec CBC 05/04/19 Range/Units 04:40 WBC 10.8 H (3.8-10.6) k/uL RBC 4.49 (4.30-5.90) m/uL Hgb 14.5 (13.0-17.5) gm/dL Hct 43.0 (39.0-53.0) % Plt Count 145 L (150-450) k/uL Comprehensive Metabolic Panel 05/04/19 Range/Units 04:40 Sodium 127 L (137-145) mmol/L Potassium 5.3 H (3.5-5.1) mmol/L Chloride 90 L (98-107) mmol/L Carbon Dioxide 22 (22-30) mmol/L BUN 44 H (9-20) mg/dL Creatinine 1.01 (0.66-1.25) mg/dL Glucose 407 H (74-99) mg/dL Calcium 9.1 (8.4-10.2) mg/dL AST 31 (17-59) U/L ALT 18 (4-49) U/L Alkaline Phosphatase 111 (38-126) U/L Total Protein 6.6 (6.3-8.2) g/dL Albumin 3.0 L (3.5-5.0) g/dL Current Medications Generic Name Dose Route Start Last Admin Trade Name Freq PRN Reason Stop Dose Admin Albuterol Sulfate 2.5 mg 05/04/19 07:39 Ventolin Nebulized INHALATION RT-Q4H PRN Shortness Of Breath Or Wheezing Albuterol/Ipratropium 3 ml 05/04/19 08:00 05/04/19 08:14 Duoneb 0.5 Mg-3 Mg/3 Ml Soln INHALATION 3 ml RT-QID DELISA Administration Azithromycin 500 mg 05/04/19 09:00 Zithromax PO DAILY DELISA Heparin Sodium (Porcine) 5,000 unit 05/04/19 08:00 05/04/19 08:33 Heparin SQ Not Given Q8HR DELISA Sodium Chloride 1,000 mls @ 20 mls/hr 05/04/19 07:45 05/04/19 08:27 Saline 0.9% IV 20 mls/hr .Q24H DELISA Administration Ceftriaxone Sodium 1 gm/ 50 mls @ 100 mls/hr 05/05/19 09:00 Sodium Chloride IVPB 05/08/19 09:01 Q24HR DELISA Heparin Sodium/Sodium Chloride 250 mls @ 6.804 mls/hr 05/04/19 08:00 05/04/19 08:32 25,000 unit/ Sodium Chloride IV 12 units/kg/hr .Q24H DELISA 6.804 mls/hr Administration Protocol 12 UNITS/KG/HR Sodium Chloride 1,000 mls @ 130 mls/hr 05/04/19 09:00 05/04/19 08:55 Saline 0.9% IV 130 mls/hr .Q7H42M DELISA Administration Miscellaneous Information 1 each 05/04/19 07:39 Pneumonia Protocol Utilized PO ONCE PRN Per Protocol Intake and Output 05/03/19 05/04/19 05/04/19 21:59 06:59 14:59 Other: Weight 05/04/19 04:40 05/04/19 04:40
[2019-05-04] MEDS: INSULIN ASPART (NovoLOG) 100 UNIT/ML VIAL SQ SCH ×2 (12:48→17:36)
[2019-05-04] MEDS: ASPIRIN 81 MG PO SCH (12:49)
[2019-05-04] MEDS: ATORVASTATIN 40 MG TAB PO SCH (12:49)
[2019-05-04] MEDS ORDERED: VANCOMYCIN 1,000 MG in SODIUM CHLORIDE 0.9% 250 ML IVPB STA (15:02)
--- NOTE | 2019-05-04 15:10 | P.CNPUL ---
History of Present Illness Consult date: 05/04/19 Reason for consult: dyspnea History of present illness: This is a pleasant 68-year-old male past medical history significant for valvular heart disease status post bioprosthetic aortic valve replacement in 2014, peripheral vascular disease status post aortic endarterectomy 2014, diabetes mellitus, hypertension and dyslipidemia. He admits to daily alcohol intake. He does not follow in the office with a facilities clerk. We have been asked to see in consultation for elevated troponin. He initially presented to the emergency department with symptoms of shortness of breath, cough and fall. He is unsure. It corresponding loss of consciousness. He states that he lost his balance falling on the left side of his body. He was noted to be febrile on admission with a temperature of 101.7. The patient states that he was sick since March 2019. Back then he was in [place]. On and off he was having fever. He was seen in [place] emergency department and he was given treatment and the exact treatment is not known to us at this point in time. The patient himself is a very poor historian. I think is lethargic and somewhat e ncephalopathic and is unable to volunteer detailed history. He came in to the hospital regarding these ongoing problems. The hospital, the patient was found to have a white cell count of 10.8. His initial lactic acid level was 3 and it dropped down to 1.0. Troponin was slightly positive at 0.657. ProBNP level was 4860. CT angiogram of the chest was done and was negative for pulmonary embolis m. There was a soft tissue collection superior aspect of the left sternoclavicular joint at the level of the third and had with some tissue thickening and there is involvement of the sternum and there is also recommended the undisplaced fracture of the left clavicle. On examination, the patient is sore in the involved area without any significant erythema or warmth. For now he is on examination of Rocephin and Zithromax. He does have a cardiac murmur. He has a bioprosthetic aortic valve that was placed in 2014. Review of Systems Constitutional: Reports fatigue, Reports fever, Reports lethargy, Reports weakness Eyes: bilateral photophobia, denies as per HPI, denies blurred vision, denies bulging eye, denies decreased vision, denies diplopia, denies discharge, denies dry eye, denies irritation, denies itching, denies pain, denies loss of peripheral vision, denies loss of vision, denies tunnel vision/blind spots Ears: deny: decreased hearing, ear discharge, earache, tinnitus Ears, nose, mouth and throat: Denies headache, Denies sore throat Cardiovascular: Reports chest pain (Chest wall pain), Reports decreased exercise tolerance, Reports dyspnea on exertion Respiratory: Reports cough, Reports dyspnea Gastrointestinal: Reports as per HPI Genitourinary: Reports as per HPI Musculoskeletal: Reports as per HPI Musculoskeletal: absent: ankle pain, ankle stiffness, ankle swelling Neurological: Reports weakness Psychiatric: Reports as per HPI Endocrine: Reports as per HPI, Reports fatigue Hematologic/Lymphatic: Reports as per HPI Allergic/Immunologic: Reports as per HPI Past Medical History Past Medical History: Cancer, Diabetes Mellitus, Hyperlipidemia, Hypertension, Osteoarthritis (OA) Additional Past Medical History / Comment(s): aortic valve replacement with a bioprosthetic aortic valve back in 2014, history of skin cancer, history of gout, hyperlipidemia, hypertension, OA, diabetes mellitus History of Any Multi-Drug Resistant Organisms: None Reported Past Surgical History: Heart Catheterization, Orthopedic Surgery Additional Past Surgical History / Comment(s): ORIF rt hand and ankle, aortic valve replacement/bioprosthetic aortic valve Past Anesthesia/Blood Transfusion Reactions: No Reported Reaction Past Psychological History: No Psychological Hx Reported Smoking Status: Former smoker Past Alcohol Use History: Daily Past Drug Use History: None Reported - Past Family History Father Family Medical History: Cancer Medications and Allergies Home Medications Medication Instructions Recorded Confirmed Type Lisinopril 15 mg PO HS 06/09/14 05/04/19 History Zolpidem [Ambien] 10 mg PO HS 06/11/14 05/04/19 History Magnesium Oxide [Mag-Ox] 400 mg PO DAILY 07/13/14 05/04/19 History Metoprolol Tartrate 12.5 mg PO BID #60 tab 07/18/14 05/04/19 Rx Allopurinol [Zyloprim] 100 mg PO DAILY 07/25/17 05/04/19 History Aspirin EC [Ecotrin Low Dose] 81 mg PO DAILY 07/25/17 05/04/19 History Cetirizine HCl [Zyrtec] 10 mg PO DAILY 07/25/17 05/04/19 History Furosemide [Lasix] 20 mg PO DAILY 07/25/17 05/04/19 History Rosuvastatin [Crestor] 10 mg PO HS 07/25/17 05/04/19 History Albuterol Sulfate [Ventolin HFA] 2 puff INHALATION RT-QID PRN 05/04/19 05/04/19 History Budesonide [Pulmicort] 0.5 mg INHALATION RT-BID 05/04/19 05/04/19 History Empagliflozin [Jardiance] 10 mg PO DAILY 05/04/19 05/04/19 History HYDROcodone/APAP 5-325MG [[place] 1 tab PO Q4H PRN 05/04/19 05/04/19 History 5-325] Montelukast [Singulair] 10 mg PO HS 05/04/19 05/04/19 History glipiZIDE [Glucotrol] 10 mg PO AC-BID 05/04/19 05/04/19 History predniSONE See Taper PO DAILY 05/04/19 05/04/19 History Allergies Allergy/AdvReac Type Severity Reaction Status Date / Time No Known Allergies Allergy Verified 11/11/18 08:29 Physical Exam Vitals: Vital Signs Temp Pulse Resp BP Pulse Ox 05/04/19 11:56 92 05/04/19 11:36 95 05/04/19 08:38 89 22 101/61 99 05/04/19 08:29 86 05/04/19 08:15 89 05/04/19 08:00 92 22 101/58 98 05/04/19 07:44 99.1 F 93 18 98 05/04/19 06:47 106 H 20 100/68 99 05/04/19 06:30 99 99/85 98 05/04/19 06:07 101.7 F H 05/04/19 06:00 107 H 94/58 98 05/04/19 05:50 114 H 94/58 98 05/04/19 05:40 113 H 69 H 94/58 98 05/04/19 05:30 117 H 105/78 100 05/04/19 05:25 100 05/04/19 05:20 105/78 90 L 05/04/19 05:10 120 H 29 H 105/78 100 05/04/19 05:00 120 H 26 H 102/58 96 05/04/19 04:50 120 H 20 102/58 100 05/04/19 04:40 116 H 22 102/58 97 05/04/19 04:39 20 05/04/19 04:30 117 H 28 H 109/62 96 05/04/19 04:20 109/62 100 05/04/19 04:13 96 05/04/19 04:10 102.1 F H 121 H 22 109/62 99 Intake and Output 05/03/19 05/04/19 05/04/19 21:59 06:59 14:59 Other: Weight Gen. appearance lethargic sleepy for historian in general does not seem to be in acute respiratory distress. Head exam was generally normal. There was no scleral icterus or corneal arcus. Mucous membranes were moist. Neck was supple and without jugular venous distension, thyromegaly, or carotid bruits. Carotids were easily palpable bilaterally. There was no adenopathy. There is some soreness along the left clavicular area without any major deformity. Lungs sounds are diminished and there is some few scattered expiratory wheeze. The area over the superior part of the sternum is nonswollen. There is tenderness upon palpation. No warmth. No purulent material can be seen within that area. Heart sounds are regular, positive S1-S2 and the patient has systolic ejection murmur grade 4/6 mainly affects and this is radiating to his neck. The sternum is dry clean and intact. There is palpation of the sternum at the level of the soft tissue collection as stated on the CAT scan. Abdominal exam revealed normal bowel sounds. The abdomen was soft, non-tender, and without masses, organomegaly, or appreciable enlargement of the abdominal aorta. Examination of the extremities revealed easily palpable radial, femoral and pedal pulses. There was no cyanosis, clubbing or edema. Examination of the skin revealed no evidence of significant rashes, suspicious appearing nevi or other concerning lesions. Neurologically following commands essentially simple commands anything communicated he is a very poor historian. Insight and memory is affected. Results - Laboratory Findings CBC and BMP: 05/04/19 04:40 05/04/19 04:40 PT/INR, D-dimer PT 9.9 sec (9.0-12.0) 05/04/19 04:40 INR 0.9 (<1.2) 05/04/19 04:40 D-Dimer 12.41 mg/L FEU (<0.60) H 05/04/19 04:40 Abnormal lab findings: Abnormal Labs 05/04/19 05/04/19 05/04/19 04:40 04:40 04:40 WBC 10.8 H Plt Count 145 L Neutrophils # 10.2 H Lymphocytes # 0.3 L APTT 20.5 L D-Dimer VBG pCO2 VBG HCO3 Sodium 127 L Potassium 5.3 H Chloride 90 L BUN 44 H Glucose 407 H POC Glucose (mg/dL) Plasma Lactic Acid Ross Troponin I Albumin 3.0 L 05/04/19 05/04/19 05/04/19 04:40 04:40 04:40 WBC Plt Count Neutrophils # Lymphocytes # APTT D-Dimer 12.41 H VBG pCO2 VBG HCO3 Sodium Potassium Chloride BUN Glucose POC Glucose (mg/dL) Plasma Lactic Acid Ross 3.2 H* Troponin I 0.657 H* Albumin 05/04/19 05/04/19 05/04/19 09:23 10:56 11:35 WBC Plt Count Neutrophils # Lymphocytes # APTT D-Dimer VBG pCO2 34 L VBG HCO3 18 L Sodium Potassium Chloride BUN Glucose POC Glucose (mg/dL) 394 H 379 H Plasma Lactic Acid Ross Troponin I Albumin - Diagnostic Findings Chest x-ray: image reviewed CT scan - chest: image reviewed Assessment and Plan Plan: 1 febrile illness , subacute with ongoing episodes of fever with a temperature of 10 2.1. Currently afebrile. Obviously this raises concern for underlying sepsis. No evidence of pneumonia. No obvious source of infection. However, one area of concern is a soft tissue density that is present over the sternum as stated on the CAT scan. This area is present along the left sternoclavicular joint measuring 5 x 5.3 cm in size. Consider underlying abscess. Underlying infective endocarditis cannot be completely excluded. The patient has a cardiac murmur with a bioprosthetic aortic valve. No open wounds or sores. 2 mild lactic acidosis, improved 3 fever 4 hyponatremia, likely acute 5 aortic valve replacement/bioprosthetic aortic valve in 2014 6 lethargy and diminished level of consciousness secondary to above 7 diabetes mellitus type 2 8 hypertension 9 hyperlipidemia 10 gout 11 suspected COPD 12 troponin leak likely secondary to above currently on IV heparin 13 . Peripheral vascular disease 14 history of alcoholism 15. Clavicular fracture secondary to fall Plan Check pro calcitonin level Check 2 sets of blood cultures Cover the patient with IV Rocephin and vancomycin and discontinue the Zithromax Echocardiogram to assess LV function, assess valve function and rule out endocarditis Obtain a blood gas Hold on the BiPAP treatment for now. He is on oxygen at 3 L per minute nasal cannula. Continue IV fluids at 130 mL an hour and monitor the sodium level every 6 hours. Consult IR for the possibility of a drainage of the soft tissue/abscess collection in the left sternoclavicular area
[2019-05-04] MEDS: FUROSEMIDE 20 MG TAB PO SCH (16:47)
[2019-05-04 16:48] LABS: Glucose,Whole Blood 419 mg/dL (75-99)
[2019-05-04 17:14] LABS: ABG Base Excess -5.1 mmol/L; ABG HCO3 19 mmol/L (21-25); ABG Oxygen Saturation 97.6 % (94-97); ABG PCO2 30 mmHg (35-45); ABG PH 7.42 (7.35-7.45); ABG PO2 101 mmHg (83-108); ABG TCO2 20 mmol/L (19-24); Allen Test Performed? Yes
[2019-05-04] MEDS ORDERED: INSULIN ASPART (NovoLOG) 100 UNIT/ML VIAL SQ ONE (17:34)
--- NOTE | 2019-05-04 18:20 | HP ---
HISTORY AND PHYSICAL DATE OF SERVICE: 05/04/2019 CHIEF COMPLAINT: Shortness of breath. I am covering for Dr. Gardiner. HISTORY OF PRESENT ILLNESS: This 68-year-old gentleman with a past medical history of multiple medical problems including diabetes, hypertension, hyperlipidemia, history of DJD, history of aortic valve replacement, bioprosthetic valve, history of EtOH, history of gout, hyperlipidemia being followed by Dr. Robbie Gardiner in the outpatient setting, the patient is complaining of shortness of breath. The patient also had significant peripheral vascular disease. The patient also had history of significant alcohol intake. The patient apparently tried to get up and fell because of balance problems and the patient has also had a fever, present on admission and the patient is admitted for further evaluation and treatment. After admission, patient had multiple lab abnormalities, including increased WBC, hyponatremia, troponins elevated up to 0.6657, glucose also elevated more than 400. negative and CT scan of the chest showed a focal 5.3 x 5.1 cm soft tissue density along the superior aspect of the left sternoclavicular joint and thickening of the sternal head of the sternocleidomastoid and contiguous soft tissue thickening extending down along the left parasternal region measuring about 3.2 x 2.2 cm also. Corresponding comminuted fracture of the left clavicle head also noted raising the possibility of hematoma infectious phlegmon. The patient being closely monitored. Currently the patient is rather drowsy and is being closely monitored. Patient started on broad spectrum IV antibiotics. Most of the history taken from my discussion with staff and review of chart at this time. PAST MEDICAL HISTORY: Past medical history of diabetes type 2, history of hypertension, history of DJD, history of aortic valve replacement, bioprosthetic valve replacement. MEDICATIONS: Prior to admission include home medications are: 1. Prednisone daily. 2. Glucotrol 10 mg a.c. b.i.d. 3. Ambien 10 mg q.h.s. 4. Crestor 10 mg q.h.s. 5. Singulair 10 mg q.h.s. 6. Metoprolol 12.5 mg p.o. b.i.d. 7. Magnesium oxide 400 mg p.o. daily. 8. Lisinopril 15 mg q.h.s. 9. [place] 5 mg q.4 p.r.n. 10.Lasix 20 mg p.o. daily. 11.Jardiance 10 mg p.o. daily. 12.Zyrtec 10 mg p.o. daily. 13.Pulmicort 0.5 mg b.i.d. 14.Ecotrin 81 mg p.o. daily. 15.Zyloprim 100 mg p.o. daily. 16.Ventolin 2 puffs q.i.d. p.r.n. ALLERGIES: None. FAMILY HISTORY: Family history of cancer in the family. SOCIAL HISTORY: Per chart, previous history of smoking, alcohol intake. REVIEW OF SYSTEMS: Could not be taken because the patient's change in mental status. PHYSICAL EXAM: Pulse is 90. The blood pressure 101/64, respirations 17, temperature 97.8, pulse ox 98% on BiPAP. HEENT: Conjunctivae normal. Oral mucosa moist. T-max 101.7. NECK is no jugular venous distention. CARDIOVASCULAR SYSTEMS: S1, S2 muffled. RESPIRATION: Breath sounds diminished in the bases. Bilateral scattered rhonchi and crackles. ABDOMEN: Soft, nontender. No mass palpable. LEGS: No edema. No swelling. NERVOUS SYSTEM: Diffusely weak. LYMPHATICS: No lymph nodes palpable in the neck, axillae or groin. SKIN: No ulcer, no rashes and no bleeding. JOINTS: No active deforming arthropathy. LABS: WBC 10.8, hemoglobin 14.5, otherwise INR is 0.9 and VBG 7.35. Sodium 127, potassium 5.3 and BUN is 44. Glucose is 407. Troponin 0.05, 0657. ASSESSMENT: 1. Possible chronic obstructive pulmonary disease acute exacerbation with acute purulent tracheobronchitis with possible sepsis with hypoxic respiratory failure. 2. Focal 5.3 x 5.1 cm soft tissue density along the superior aspect of the left sternocleidomastoid with thickening and continuous soft tissue swelling extending down along the parasternal region, measuring 3.2 x 2.2 cm. Possible hematoma, possible phlegmon. 3. Change in mental status, acute metabolic encephalopathy multifactorial. 4. Troponin 0.657 indeterminate, rule out acute [id number]-LC-[id number]-elevation myocardial infarction. 5. Fall and gait dysfunction. 6. Hyponatremia. 7. History of ETOH. 8. Hyperkalemia mild. 9. Diabetes mellitus type 2, uncontrolled with hyperglycemia. 10.Increased WBC. 11.Mild thrombocytopenia. 12.Elevated lactic acid, possibly secondary to dehydration or sepsis. 13.Severe protein calorie malnutrition, BMI of 18.5. 14.Comminuted fractures as mentioned earlier. 15.Diabetes mellitus type 2. 16.Hypertension. 17.Hyperlipidemia. 18.History of degenerative joint disease. 19.History of aortic valve replacement with a bioprosthetic aortic valve 2014. 20.History of skin cancer. 21.History of gout. 22.Hyperlipidemia. 23.Hypertension. 24.History of ORIF. 25.History of nicotine dependence. RECOMMENDATIONS AND DISCUSSION: In this 68-year-old gentleman who presented with multiple complex medical issues, we will monitor the patient closely, continue the current medications, management and symptomatic treatment. Otherwise, at this time, I recommend broad-spectrum IV antibiotics. Recommend Zosyn and vancomycin. Obtain cultures. Bronchodilators. We will recommend closely follow with Cardiology and Pulmonology. Otherwise, a small dose of Lasix also has been recommended. We will continue with BiPAP. Ensure oxygenation. Repeat labs. Prognosis guarded because of multiple complex medical issues. Further recommendations to follow. A copy of dictation being forwarded to Dr. Gardiner who is the primary physician. Dr. Gardiner will follow tomorrow. MMODL / IJN: [id number] / MTDD
[2019-05-04] MEDS: PIPERACILLIN-TAZOBACTAM 3.375 GM in SODIUM CHLORIDE 0.9% 100 ML IVPB SCH ×2 (18:43→23:01)
[2019-05-04] MEDS ORDERED: INSULIN REGULAR 100 UNIT in SODIUM CHLORIDE 0.9% 100 ML IV SCH (18:45)
[2019-05-04 19:10] LABS: Albumin 2.6 g/dL (3.5-5.0); Calcium 8.6 mg/dL (8.4-10.2); Total Bilirubin 0.6 mg/dL (0.2-1.3); Total Protein 6.2 g/dL (6.3-8.2)
[2019-05-04] MEDS: BUDESONIDE 0.5 MG/2 ML NEBU INHALATION SCH (19:48)
[2019-05-04 20:01] LABS: Glucose,Whole Blood 382 mg/dL (75-99)
[2019-05-04 20:30] LABS: Glucose,Whole Blood 318 mg/dL (75-99)
[2019-05-04 20:43] LABS: Appearance,Urine Clear (Clear); Bacteria,Urine Rare /hpf; Bilirubin,Urine Negative (Negative); Blood,Urine Small (Negative); Color,Urine Light Yellow; Glucose,Urine (UA) 4+ (Negative); Ketones,Urine 1+ (Negative); Leukocyte Esterase,Urine Negative (Negative); Mucus,Urine Rare /hpf; Nitrite,Urine Negative (Negative); Protein,Urine Negative (Negative); RBC,Urine 8 /hpf (0-5); Specific Gravity,Urine 1.028 (1.001-1.035); Squamous Epithelial Cell,Urine <1 /hpf (0-4); Urobilinogen,Urine <2.0 mg/dL (<2.0); WBC,Urine 2 /hpf (0-5)
[2019-05-04] MEDS: MONTELUKAST 10 MG TAB PO SCH (21:00)
[2019-05-04] MEDS ORDERED: NON FORMULARY DRUG (Rosuvastatin 10 MG) PO SCH (21:00)
[2019-05-04] MEDS: LISINOPRIL 10 MG TAB PO SCH (21:00)
[2019-05-04] MEDS ORDERED: METOPROLOL TARTRATE 12.5 MG TAB PO SCH (21:00)
[2019-05-04 21:06] LABS: Glucose,Whole Blood 256 mg/dL (75-99)
[2019-05-04 21:32] LABS: Glucose,Whole Blood 198 mg/dL (75-99)
[2019-05-04] MEDS ORDERED: LORazepam 2 MG/ML INJ IV STA (21:41)
[2019-05-04 22:31] LABS: Glucose,Whole Blood 161 mg/dL (75-99)
[2019-05-04] MEDS ORDERED: LORazepam 2 MG/ML INJ IV PRN ×2 (23:22)
[2019-05-04] MEDS: LORazepam 2 MG/ML INJ IV PRN (23:48)
[2019-05-05] MEDS: 0.9% NACL WITH KCL 20 MEQ/L 1,000 ML with MVI, ADULT NO.4 WITH VIT K 10 ML, THIAMINE 10... IV SCH ×8 (00:16→20:12)
[2019-05-05 00:26] LABS: Glucose,Whole Blood 138 mg/dL (75-99)
[2019-05-05] MEDS ORDERED: VANCOMYCIN IV PER PHARMACY 1 EACH MISC MISCELLANE PRN (00:40)
--- NOTE | 2019-05-05 00:40 | P.CONS ---
History of Present Illness - Reason for Consult Consult date: 05/04/19 chest wall abscess Requesting physician: Joseph Claudio - Chief Complaint shortness of breath and chest pain x few days - History of Present Illness Patient is 68-year male presenting to the ER early this morning via EMS with a chief complaints of increasing shortness of breath patient breathing has been getting worse over the last few hours before presented to hospital apparently the patient complaining of shortness of breath to the point that he try to get up fell and may have passed out patient has been complaining of cough which has been moderate intensity with occasional sputum production on arrival to the ER patient did have a fever of 102 degrees following height patient was tachycardic and did have a white count of 10.8 creatinine was normal UA was negative influenza PCR was negative patient did have a CT angiogram which did shows 5.15 0.3 cm soft tissue density along the superior aspect of the left sternoclavicular joint corresponding thickening to the sternal head communicated nondisplaced fracture no carmelita consolidation infectious disease was consulted because of this abnormal finding on the CT to rule out abscess patient has been complaining of pain to the left clavicular area more of a dull aching pain however mention started this morning is not chronic intensity about 5-6 out of 10 and no radiation currently with no redness no open wound or any drainage. Review of Systems Positive point has been mentioned in HPI rest of the systems are negative Past Medical History Past Medical History: Cancer, Diabetes Mellitus, Hyperlipidemia, Hypertension, Osteoarthritis (OA) Additional Past Medical History / Comment(s): aortic valve replacement with a bioprosthetic aortic valve back in 2014, history of skin cancer, history of gout, hyperlipidemia, hypertension, OA, diabetes mellitus History of Any Multi-Drug Resistant Organisms: None Reported Past Surgical History: Coronary Bypass/CABG, Heart Catheterization, Orthopedic Surgery Additional Past Surgical History / Comment(s): ORIF rt hand and ankle, aortic valve replacement/bioprosthetic aortic valve Past Anesthesia/Blood Transfusion Reactions: No Reported Reaction Past Psychological History: No Psychological Hx Reported Smoking Status: Former smoker Past Alcohol Use History: Daily Additional Past Alcohol Use History / Comment(s): started smoking at age 15 quit at age 26 smoked 3ppd Past Drug Use History: None Reported - Past Family History Father Family Medical History: Cancer Medications and Allergies Home Medications Medication Instructions Recorded Confirmed Type Lisinopril 15 mg PO HS 06/09/14 05/04/19 History Zolpidem [Ambien] 10 mg PO HS 06/11/14 05/04/19 History Magnesium Oxide [Mag-Ox] 400 mg PO DAILY 07/13/14 05/04/19 History Metoprolol Tartrate 12.5 mg PO BID #60 tab 07/18/14 05/04/19 Rx Allopurinol [Zyloprim] 100 mg PO DAILY 07/25/17 05/04/19 History Aspirin EC [Ecotrin Low Dose] 81 mg PO DAILY 07/25/17 05/04/19 History Cetirizine HCl [Zyrtec] 10 mg PO DAILY 07/25/17 05/04/19 History Furosemide [Lasix] 20 mg PO DAILY 07/25/17 05/04/19 History Rosuvastatin [Crestor] 10 mg PO HS 07/25/17 05/04/19 History Albuterol Sulfate [Ventolin HFA] 2 puff INHALATION RT-QID PRN 05/04/19 05/04/19 History Budesonide [Pulmicort] 0.5 mg INHALATION RT-BID 05/04/19 05/04/19 History Empagliflozin [Jardiance] 10 mg PO DAILY 05/04/19 05/04/19 History HYDROcodone/APAP 5-325MG [[place] 1 tab PO Q4H PRN 05/04/19 05/04/19 History 5-325] Montelukast [Singulair] 10 mg PO HS 05/04/19 05/04/19 History glipiZIDE [Glucotrol] 10 mg PO AC-BID 05/04/19 05/04/19 History predniSONE See Taper PO DAILY 05/04/19 05/04/19 History Allergies Allergy/AdvReac Type Severity Reaction Status Date / Time No Known Allergies Allergy Verified 11/11/18 08:29 Physical Exam Vitals: Vital Signs Temp Pulse Pulse Resp BP BP Pulse Ox 05/04/19 20:01 121 H 05/04/19 19:50 118 H 05/04/19 16:20 99.0 F 104 H 18 119/81 99 05/04/19 15:42 90 05/04/19 15:29 90 05/04/19 11:56 92 05/04/19 11:36 95 05/04/19 11:20 97.8 F 90 17 101/65 98 05/04/19 08:38 89 22 101/61 99 05/04/19 08:29 86 05/04/19 08:15 89 05/04/19 08:00 92 22 101/58 98 05/04/19 07:44 99.1 F 93 18 98 05/04/19 06:47 106 H 20 100/68 99 05/04/19 06:30 99 99/85 98 05/04/19 06:07 101.7 F H 05/04/19 06:00 107 H 94/58 98 05/04/19 05:50 114 H 94/58 98 05/04/19 05:40 113 H 69 H 94/58 98 05/04/19 05:30 117 H 105/78 100 05/04/19 05:25 100 05/04/19 05:20 105/78 90 L 05/04/19 05:10 120 H 29 H 105/78 100 05/04/19 05:00 120 H 26 H 102/58 96 05/04/19 04:50 120 H 20 102/58 100 05/04/19 04:40 116 H 22 102/58 97 05/04/19 04:39 20 05/04/19 04:30 117 H 28 H 109/62 96 05/04/19 04:20 109/62 100 05/04/19 04:13 96 05/04/19 04:10 102.1 F H 121 H 22 109/62 99 Intake and Output 05/04/19 05/04/19 05/04/19 06:59 14:59 22:59 Intake Total 596 346.251 Output Total 1100 Balance 596 -753.749 Intake: Intake, IV Titration 346.251 Amount Heparin Sod,Pork in 0.45% 67.246 NaCl 25,000 unit In 0.45 % NaCl 1 250ml.bag @ 12 UNITS/KG/HR 6.804 mls/hr IV .Q24H DELISA Rx#: [id number] Insulin Regular 100 unit 29.005 In Sodium Chloride 0.9% 100 ml @ Titrate IV .Q0M DELISA Rx#:[id number] Vancomycin 1,000 mg In 250 Sodium Chloride 0.9% 250 ml @ 125 mls/hr IVPB ONCE STA Rx#:[id number] Oral 596 Output: Urine 1100 Other: Weight 91.5 kg GENERAL DESCRIPTION: Elderly male lying in bed, no distress. No tachypnea or accessory muscle of respiration use. HEENT: Shows Pallor , no scleral icterus. Oral mucous membrane is dry. NECK: Trachea central, no thyromegaly. LUNGS: Unlabored breathing. Decreased intensity of breath sounds. No wheeze or crackle. HEART: S1, S2, regular rate and rhythm. ABDOMEN: Soft, no tenderness , guarding or rigidity EXTREMITIES: No edema of feet. SKIN: No rash, no masses palpable. NEUROLOGICAL: The patient is awake, alert, oriented x3, mood and affect normal. Results CBC & Chem 7: 05/04/19 04:40 05/04/19 18:41 Labs: Abnormal Lab Results - Last 24 Hours (Table) 05/04/19 05/04/19 05/04/19 Range/Units 04:40 04:40 04:40 WBC 10.8 H (3.8-10.6) k/uL Plt Count 145 L (150-450) k/uL Neutrophils # 10.2 H (1.3-7.7) k/uL Lymphocytes # 0.3 L (1.0-4.8) k/uL APTT 20.5 L (22.0-30.0) sec D-Dimer (<0.60) mg/L FEU ABG pCO2 (35-45) mmHg ABG HCO3 (21-25) mmol/L ABG O2 Saturation (94-97) % VBG pCO2 (37-51) mmHg VBG HCO3 (24-28) mmol/L Sodium 127 L (137-145) mmol/L Potassium 5.3 H (3.5-5.1) mmol/L Chloride 90 L (98-107) mmol/L Carbon Dioxide (22-30) mmol/L BUN 44 H (9-20) mg/dL Glucose 407 H (74-99) mg/dL POC Glucose (mg/dL) (75-99) mg/dL Plasma Lactic Acid Ross (0.7-2.0) mmol/L Troponin I (0.000-0.034) ng/mL Total Protein (6.3-8.2) g/dL Albumin 3.0 L (3.5-5.0) g/dL Urine Glucose (UA) (Negative) Urine Ketones (Negative) Urine Blood (Negative) Urine RBC (0-5) /hpf Urine Bacteria (None) /hpf Urine Mucus (None) /hpf 05/04/19 05/04/19 05/04/19 Range/Units 04:40 04:40 04:40 WBC (3.8-10.6) k/uL Plt Count (150-450) k/uL Neutrophils # (1.3-7.7) k/uL Lymphocytes # (1.0-4.8) k/uL APTT (22.0-30.0) sec D-Dimer 12.41 H (<0.60) mg/L FEU ABG pCO2 (35-45) mmHg ABG HCO3 (21-25) mmol/L ABG O2 Saturation (94-97) % VBG pCO2 (37-51) mmHg VBG HCO3 (24-28) mmol/L Sodium (137-145) mmol/L Potassium (3.5-5.1) mmol/L Chloride (98-107) mmol/L Carbon Dioxide (22-30) mmol/L BUN (9-20) mg/dL Glucose (74-99) mg/dL POC Glucose (mg/dL) (75-99) mg/dL Plasma Lactic Acid Ross 3.2 H* (0.7-2.0) mmol/L Troponin I 0.657 H* (0.000-0.034) ng/mL Total Protein (6.3-8.2) g/dL Albumin (3.5-5.0) g/dL Urine Glucose (UA) (Negative) Urine Ketones (Negative) Urine Blood (Negative) Urine RBC (0-5) /hpf Urine Bacteria (None) /hpf Urine Mucus (None) /hpf 05/04/19 05/04/19 05/04/19 Range/Units 09:23 10:56 11:35 WBC (3.8-10.6) k/uL Plt Count (150-450) k/uL Neutrophils # (1.3-7.7) k/uL Lymphocytes # (1.0-4.8) k/uL APTT (22.0-30.0) sec D-Dimer (<0.60) mg/L FEU ABG pCO2 (35-45) mmHg ABG HCO3 (21-25) mmol/L ABG O2 Saturation (94-97) % VBG pCO2 34 L (37-51) mmHg VBG HCO3 18 L (24-28) mmol/L Sodium (137-145) mmol/L Potassium (3.5-5.1) mmol/L Chloride (98-107) mmol/L Carbon Dioxide (22-30) mmol/L BUN (9-20) mg/dL Glucose (74-99) mg/dL POC Glucose (mg/dL) 394 H 379 H (75-99) mg/dL Plasma Lactic Acid Ross (0.7-2.0) mmol/L Troponin I (0.000-0.034) ng/mL Total Protein (6.3-8.2) g/dL Albumin (3.5-5.0) g/dL Urine Glucose (UA) (Negative) Urine Ketones (Negative) Urine Blood (Negative) Urine RBC (0-5) /hpf Urine Bacteria (None) /hpf Urine Mucus (None) /hpf 05/04/19 05/04/19 05/04/19 Range/Units 16:47 17:11 18:41 WBC (3.8-10.6) k/uL Plt Count (150-450) k/uL Neutrophils # (1.3-7.7) k/uL Lymphocytes # (1.0-4.8) k/uL APTT (22.0-30.0) sec D-Dimer (<0.60) mg/L FEU ABG pCO2 30 L (35-45) mmHg ABG HCO3 19 L (21-25) mmol/L ABG O2 Saturation 97.6 H (94-97) % VBG pCO2 (37-51) mmHg VBG HCO3 (24-28) mmol/L Sodium 126 L (137-145) mmol/L Potassium (3.5-5.1) mmol/L Chloride 97 L (98-107) mmol/L Carbon Dioxide 17 L (22-30) mmol/L BUN 52 H (9-20) mg/dL Glucose 393 H (74-99) mg/dL POC Glucose (mg/dL) 419 H (75-99) mg/dL Plasma Lactic Acid Ross (0.7-2.0) mmol/L Troponin I (0.000-0.034) ng/mL Total Protein 6.2 L (6.3-8.2) g/dL Albumin 2.6 L (3.5-5.0) g/dL Urine Glucose (UA) (Negative) Urine Ketones (Negative) Urine Blood (Negative) Urine RBC (0-5) /hpf Urine Bacteria (None) /hpf Urine Mucus (None) /hpf 05/04/19 05/04/19 05/04/19 Range/Units 20:00 20:00 20:28 WBC (3.8-10.6) k/uL Plt Count (150-450) k/uL Neutrophils # (1.3-7.7) k/uL Lymphocytes # (1.0-4.8) k/uL APTT (22.0-30.0) sec D-Dimer (<0.60) mg/L FEU ABG pCO2 (35-45) mmHg ABG HCO3 (21-25) mmol/L ABG O2 Saturation (94-97) % VBG pCO2 (37-51) mmHg VBG HCO3 (24-28) mmol/L Sodium (137-145) mmol/L Potassium (3.5-5.1) mmol/L Chloride (98-107) mmol/L Carbon Dioxide (22-30) mmol/L BUN (9-20) mg/dL Glucose (74-99) mg/dL POC Glucose (mg/dL) 382 H 318 H (75-99) mg/dL Plasma Lactic Acid Ross (0.7-2.0) mmol/L Troponin I (0.000-0.034) ng/mL Total Protein (6.3-8.2) g/dL Albumin (3.5-5.0) g/dL Urine Glucose (UA) 4+ H (Negative) Urine Ketones 1+ H (Negative) Urine Blood Small H (Negative) Urine RBC 8 H (0-5) /hpf Urine Bacteria Rare H (None) /hpf Urine Mucus Rare H (None) /hpf 05/04/19 05/04/19 05/04/19 Range/Units 21:04 21:28 22:29 WBC (3.8-10.6) k/uL Plt Count (150-450) k/uL Neutrophils # (1.3-7.7) k/uL Lymphocytes # (1.0-4.8) k/uL APTT (22.0-30.0) sec D-Dimer (<0.60) mg/L FEU ABG pCO2 (35-45) mmHg ABG HCO3 (21-25) mmol/L ABG O2 Saturation (94-97) % VBG pCO2 (37-51) mmHg VBG HCO3 (24-28) mmol/L Sodium (137-145) mmol/L Potassium (3.5-5.1) mmol/L Chloride (98-107) mmol/L Carbon Dioxide (22-30) mmol/L BUN (9-20) mg/dL Glucose (74-99) mg/dL POC Glucose (mg/dL) 256 H 198 H 161 H (75-99) mg/dL Plasma Lactic Acid Ross (0.7-2.0) mmol/L Troponin I (0.000-0.034) ng/mL Total Protein (6.3-8.2) g/dL Albumin (3.5-5.0) g/dL Urine Glucose (UA) (Negative) Urine Ketones (Negative) Urine Blood (Negative) Urine RBC (0-5) /hpf Urine Bacteria (None) /hpf Urine Mucus (None) /hpf Assessment and Plan Assessment: 1-patient presented hospital with sepsis unexpected have fever tachycardia in this patient who did have abnormal CT which raises the possibility of left clavicular abscess and possible osteomyelitis in this patient currently with no other obvious clinical focus of infection influenza PCR was negative UA was negative abdominal soft on clinical examination and no evidence of any consolidation on the CT angiogram of the chest (1) Sepsis Current Visit: Yes Status: Acute Code(s): A41.9 - SEPSIS, UNSPECIFIED ORGANISM SNOMED Code(s): 59964348 (2) Chest wall abscess Current Visit: Yes Status: Acute Code(s): L02.213 - CUTANEOUS ABSCESS OF CHEST WALL SNOMED Code(s): 39434014 Plan: 1-we will request a CT-guided aspirate of this area with the fluid sent for culture both aerobic and anaerobic 2-vancomycin pharmacy to dose her with a target trough of 15 while watching her kidney function and Vanco trough closely. 3-Unasyn 3 g every 6 hours 4-check a sed rate and CRP We will follow on clinical condition and cultures to further adjust medication i f needed Thank you for this consultation we will follow the patient along with you Time with Patient: Greater than 30
[2019-05-05] MEDS: AMPICILLIN-SULBACTAM 3 GM in SODIUM CHLORIDE 0.9% 100 ML IVPB SCH ×4 (01:12→18:12)
[2019-05-05 02:27] LABS: Glucose,Whole Blood 203 mg/dL (75-99)
[2019-05-05] MEDS ORDERED: VANCOMYCIN 1,500 MG in SODIUM CHLORIDE 0.9% 250 ML IVPB SCH (04:00)
[2019-05-05 04:26] LABS: Glucose,Whole Blood 178 mg/dL (75-99)
[2019-05-05 06:23] LABS: Glucose,Whole Blood 150 mg/dL (75-99)
[2019-05-05] MEDS: SODIUM CHLORIDE 0.9% 1,000 ML IV SCH ×3 (06:34→16:20)
[2019-05-05] MEDS: INSULIN ASPART (NovoLOG) 100 UNIT/ML VIAL SQ SCH ×4 (06:34→20:11)
[2019-05-05] MEDS: HEPARIN SOD,PORK IN 0.45% NACL 25,000 UNIT in 0.45% NACL 1 250ML.BAG IV SCH (06:38)
[2019-05-05] MEDS: IPRATROPIUM-ALBUTEROL 3 ML NEB INHALATION SCH ×4 (08:24→21:28)
[2019-05-05] MEDS: BUDESONIDE 0.5 MG/2 ML NEBU INHALATION SCH ×2 (08:24→21:29)
[2019-05-05 08:45] LABS: Glucose,Whole Blood 142 mg/dL (75-99)
[2019-05-05] MEDS ORDERED: NON FORMULARY DRUG (Aspirin Ec 81 MG) PO SCH (09:00)
[2019-05-05 09:18] LABS: African American GFR (CKD) >90 (>60 ml/min/1.73 sqM); Anion Gap 5 mmol/L; Blood Urea Nitrogen 40 mg/dL (9-20); Calcium 7.5 mg/dL (8.4-10.2); Carbon Dioxide 21 mmol/L (22-30); Chloride 103 mmol/L (98-107); Glucose 110 mg/dL (74-99); Non-African American GFR(CKD) >90 (>60 ml/min/1.73 sqM); Sodium 129 mmol/L (137-145)
[2019-05-05 09:20] LABS: HCT 32.1 % (39.0-53.0); HGB 10.9 gm/dL (13.0-17.5); MCH 32.6 pg (25.0-35.0); MCHC 33.9 g/dL (31.0-37.0); MCV 96.2 fL (80.0-100.0); Mean Platelet Volume 9.6; RBC 3.34 m/uL (4.30-5.90); RDW 13.4 % (11.5-15.5); WBC 10.2 k/uL (3.8-10.6)
[2019-05-05 09:32] LABS: Potassium 4.4 mmol/L (3.5-5.1)
[2019-05-05 09:33] LABS: C Reactive Protein 201.6 mg/L (<10.0)
[2019-05-05] MEDS: ALLOPURINOL 100 MG TAB PO SCH (10:38)
[2019-05-05] MEDS: ASPIRIN 81 MG PO SCH (10:38)
[2019-05-05] MEDS: ATORVASTATIN 40 MG TAB PO SCH (10:38)
[2019-05-05] MEDS: FUROSEMIDE 20 MG TAB PO SCH (10:38)
[2019-05-05 10:41] LABS: Erythrocyte Sedimentation Rate 103 mm/hr (0-15)
[2019-05-05 10:47] LABS: Glucose,Whole Blood 133 mg/dL (75-99)
[2019-05-05 11:02] LABS: Band Neutrophils % 2 %; Lymphocytes # (M) 1.02 k/uL (1.0-4.8); Monocytes # (M) 0.41 k/uL (0-1.0); Neutrophils % (M) 84 %; Nucleated Red Blood Cells 0 /100 WBC (0-0); Platelet Count 94 k/uL (150-450); Total Cells Counted 100
--- NOTE | 2019-05-05 11:13 | XR ---
EXAMINATION TYPE: XR chest 1V portable DATE OF EXAM: 05/05/2019 COMPARISON: Prior chest 05/04/2019, CT 05/04/2019 HISTORY: Dyspnea, congestive heart failure TECHNIQUE: Single frontal view of the chest is obtained. FINDINGS: Patient is post median sternotomy and rotated. There are overlying artifacts, cardiac lead s. Lung volumes are low. Aorta is dense. Heart size may be accentuated by technique. No evident pneum othorax or pleural effusion. Central vascularity mildly prominent. No evident pneumonia. Mild promine nce of pulmonary artery noted. IMPRESSION: Correlate to exclude pulmonary artery hypertension. Expiratory rotated exam.
--- NOTE | 2019-05-05 11:14 | P.GSCN ---
<Geovanna Palencia - Last Filed: 05/05/19 11:08> History of Present Illness Consult date: 05/05/19 Reason for Consult: fall, clavicle fracture Requesting physician: Joseph Claudio History of present illness: CHIEF COMPLAINT: Fall, clavicle fracture HISTORY OF PRESENT ILLNESS: 68-year-old male who presented to the emergency room secondary to shortness of breath and fall. Patient was found to have a left clavicle fracture. General surgery was consulted for further evaluation. Patient examined his morning at the bedside. He is currently on Bipap. He is lethargic and unable to provide much information this morning. According to the nurse, the patient has a history of alcohol abuse and admits to drinking several beers a day. PAST MEDICAL HISTORY: See list. PAST SURGICAL HISTORY: See list. MEDICATIONS: See list. ALLERGIES: See list. SOCIAL HISTORY: History of alcohol abuse REVIEW OF SYSTEMS: Unable to obtain further review of systems secondary to patient's altered mental status PHYSICAL EXAM: VITAL SIGNS: Reviewed GENERAL: Well-developed in no acute distress. Lethargic. HEENT: No sclera icterus. Extraocular movements grossly intact. Moist buccal mucosa. Head is atraumatic, normocephalic. Hears conversational speech. No nasal drai nage. NECK: Supple without lymphadenopathy. CHEST: Non-labored respirations and equal bilateral excursions. Remains on bipap. CARDIOVASCULAR: Regular rate with regular rhythm. Palpable 2+ radial pulses. ABDOMEN: Soft. Nondistended. Nontender. MUSCULOSKELETAL: No clubbing or cyanosis. No pain with palpation of left clavicle. NEUROLOGIC: Lethargic. Able to nod yes or no to certain questions when asked. SKIN: Slightly diaphoretic. Well perfused. Good skin turgor. LABORATORY DATA: WBC 10.2. Hemoglobin 10.9. Platelet count 94. Sodium 129. Potassium 4.4. BUN 40. Creatinine 0.72. C-reactive protein 201.6. IMAGING: Chest CTA: Focal 5.3 x 5.1 cm soft tissue density along the superior aspect of the left sternal clavicular joint, thickening to the sternal head of the sternocleidomastoid, and contiguous soft tissue thickening extending down along the left presternal region measuring 3.2 x 2.2 cm. Corresponding comminuted fractures left clavicular head. Correlate for hematoma or infectious phlegmon. ASSESSMENT: 1. Fall from standing 2. Left clavicle fracture 3. Possible hematoma/infectious phlegmon of left sternal clavicular joint, per CT scan 4. Febrile illness 5. History of alcohol abuse PLAN: -Continue respiratory management per pulmonary team -Continue CIWA scale for DTs -Radiology consulted for possible drainage of fluid collection -Further recommendations pending. Thank you for this consultation. Nurse practitioner note has been reviewed by physician. Signing provider agrees with the documented findings, assessment, and plan of care. Past Medical History Past Medical History: Cancer, Diabetes Mellitus, Hyperlipidemia, Hypertension, Osteoarthritis (OA) Additional Past Medical History / Comment(s): aortic valve replacement with a bioprosthetic aortic valve back in 2014, history of skin cancer, history of gout, hyperlipidemia, hypertension, OA, diabetes mellitus History of Any Multi-Drug Resistant Organisms: None Reported Past Surgical History: Coronary Bypass/CABG, Heart Catheterization, Orthopedic Surgery Additional Past Surgical History / Comment(s): ORIF rt hand and ankle, aortic valve replacement/bioprosthetic aortic valve Past Anesthesia/Blood Transfusion Reactions: No Reported Reaction Past Psychological History: No Psychological Hx Reported Smoking Status: Former smoker Past Alcohol Use History: Daily Additional Past Alcohol Use History / Comment(s): started smoking at age 15 quit at age 26 smoked 3ppd Past Drug Use History: None Reported - Past Family History Father Family Medical History: Cancer Medications and Allergies Home Medications Medication Instructions Recorded Confirmed Type Lisinopril 15 mg PO HS 06/09/14 05/04/19 History Zolpidem [Ambien] 10 mg PO HS 06/11/14 05/04/19 History Magnesium Oxide [Mag-Ox] 400 mg PO DAILY 07/13/14 05/04/19 History Metoprolol Tartrate 12.5 mg PO BID #60 tab 07/18/14 05/04/19 Rx Allopurinol [Zyloprim] 100 mg PO DAILY 07/25/17 05/04/19 History Aspirin EC [Ecotrin Low Dose] 81 mg PO DAILY 07/25/17 05/04/19 History Cetirizine HCl [Zyrtec] 10 mg PO DAILY 07/25/17 05/04/19 History Furosemide [Lasix] 20 mg PO DAILY 07/25/17 05/04/19 History Rosuvastatin [Crestor] 10 mg PO HS 07/25/17 05/04/19 History Albuterol Sulfate [Ventolin HFA] 2 puff INHALATION RT-QID PRN 05/04/19 05/04/19 History Budesonide [Pulmicort] 0.5 mg INHALATION RT-BID 05/04/19 05/04/19 History Empagliflozin [Jardiance] 10 mg PO DAILY 05/04/19 05/04/19 History HYDROcodone/APAP 5-325MG [Holland 1 tab PO Q4H PRN 05/04/19 05/04/19 History 5-325] Montelukast [Singulair] 10 mg PO HS 05/04/19 05/04/19 History glipiZIDE [Glucotrol] 10 mg PO AC-BID 05/04/19 05/04/19 History predniSONE See Taper PO DAILY 05/04/19 05/04/19 History Allergies Allergy/AdvReac Type Severity Reaction Status Date / Time No Known Allergies Allergy Verified 11/11/18 08:29 Surgical - Exam Vital Signs Temp Pulse Resp BP Pulse Ox 102.1 F H 121 H 22 109/62 99 05/04/19 04:10 05/04/19 04:10 05/04/19 04:10 05/04/19 04:10 05/04/19 04:10 Results - Labs 05/05/19 08:46 05/05/19 08:46 Abnormal Lab Results - Last 24 Hours (Table) 05/04/19 05/04/19 05/04/19 Range/Units 04:40 10:56 11:35 RBC (4.30-5.90) m/uL Hgb (13.0-17.5) gm/dL Hct (39.0-53.0) % Plt Count (150-450) k/uL ESR (0-15) mm/hr APTT (22.0-30.0) sec ABG pCO2 (35-45) mmHg ABG HCO3 (21-25) mmol/L ABG O2 Saturation (94-97) % VBG pCO2 34 L (37-51) mmHg VBG HCO3 18 L (24-28) mmol/L Sodium (137-145) mmol/L Chloride (98-107) mmol/L Carbon Dioxide (22-30) mmol/L BUN (9-20) mg/dL Glucose (74-99) mg/dL POC Glucose (mg/dL) 379 H (75-99) mg/dL Calcium (8.4-10.2) mg/dL Troponin I (0.000-0.034) ng/mL C-Reactive Protein (<10.0) mg/L Total Protein (6.3-8.2) g/dL Albumin (3.5-5.0) g/dL Procalcitonin 3.25 H (0.02-0.09) ng/mL Urine Glucose (UA) (Negative) Urine Ketones (Negative) Urine Blood (Negative) Urine RBC (0-5) /hpf Urine Bacteria (None) /hpf Urine Mucus (None) /hpf 05/04/19 05/04/19 05/04/19 Range/Units 16:47 17:11 18:41 RBC (4.30-5.90) m/uL Hgb (13.0-17.5) gm/dL Hct (39.0-53.0) % Plt Count (150-450) k/uL ESR (0-15) mm/hr APTT (22.0-30.0) sec ABG pCO2 30 L (35-45) mmHg ABG HCO3 19 L (21-25) mmol/L ABG O2 Saturation 97.6 H (94-97) % VBG pCO2 (37-51) mmHg VBG HCO3 (24-28) mmol/L Sodium 126 L (137-145) mmol/L Chloride 97 L (98-107) mmol/L Carbon Dioxide 17 L (22-30) mmol/L BUN 52 H (9-20) mg/dL Glucose 393 H (74-99) mg/dL POC Glucose (mg/dL) 419 H (75-99) mg/dL Calcium (8.4-10.2) mg/dL Troponin I (0.000-0.034) ng/mL C-Reactive Protein (<10.0) mg/L Total Protein 6.2 L (6.3-8.2) g/dL Albumin 2.6 L (3.5-5.0) g/dL Procalcitonin (0.02-0.09) ng/mL Urine Glucose (UA) (Negative) Urine Ketones (Negative) Urine Blood (Negative) Urine RBC (0-5) /hpf Urine Bacteria (None) /hpf Urine Mucus (None) /hpf 05/04/19 05/04/19 05/04/19 Range/Units 20:00 20:00 20:28 RBC (4.30-5.90) m/uL Hgb (13.0-17.5) gm/dL Hct (39.0-53.0) % Plt Count (150-450) k/uL ESR (0-15) mm/hr APTT (22.0-30.0) sec ABG pCO2 (35-45) mmHg ABG HCO3 (21-25) mmol/L ABG O2 Saturation (94-97) % VBG pCO2 (37-51) mmHg VBG HCO3 (24-28) mmol/L Sodium (137-145) mmol/L Chloride (98-107) mmol/L Carbon Dioxide (22-30) mmol/L BUN (9-20) mg/dL Glucose (74-99) mg/dL POC Glucose (mg/dL) 382 H 318 H (75-99) mg/dL Calcium (8.4-10.2) mg/dL Troponin I (0.000-0.034) ng/mL C-Reactive Protein (<10.0) mg/L Total Protein (6.3-8.2) g/dL Albumin (3.5-5.0) g/dL Procalcitonin (0.02-0.09) ng/mL Urine Glucose (UA) 4+ H (Negative) Urine Ketones 1+ H (Negative) Urine Blood Small H (Negative) Urine RBC 8 H (0-5) /hpf Urine Bacteria Rare H (None) /hpf Urine Mucus Rare H (None) /hpf 05/04/19 05/04/19 05/04/19 Range/Units 21:04 21:28 22:29 RBC (4.30-5.90) m/uL Hgb (13.0-17.5) gm/dL Hct (39.0-53.0) % Plt Count (150-450) k/uL ESR (0-15) mm/hr APTT (22.0-30.0) sec ABG pCO2 (35-45) mmHg ABG HCO3 (21-25) mmol/L ABG O2 Saturation (94-97) % VBG pCO2 (37-51) mmHg VBG HCO3 (24-28) mmol/L Sodium (137-145) mmol/L Chloride (98-107) mmol/L Carbon Dioxide (22-30) mmol/L BUN (9-20) mg/dL Glucose (74-99) mg/dL POC Glucose (mg/dL) 256 H 198 H 161 H (75-99) mg/dL Calcium (8.4-10.2) mg/dL Troponin I (0.000-0.034) ng/mL C-Reactive Protein (<10.0) mg/L Total Protein (6.3-8.2) g/dL Albumin (3.5-5.0) g/dL Procalcitonin (0.02-0.09) ng/mL Urine Glucose (UA) (Negative) Urine Ketones (Negative) Urine Blood (Negative) Urine RBC (0-5) /hpf Urine Bacteria (None) /hpf Urine Mucus (None) /hpf 05/05/19 05/05/19 05/05/19 Range/Units 00:24 02:26 04:24 RBC (4.30-5.90) m/uL Hgb (13.0-17.5) gm/dL Hct (39.0-53.0) % Plt Count (150-450) k/uL ESR (0-15) mm/hr APTT (22.0-30.0) sec ABG pCO2 (35-45) mmHg ABG HCO3 (21-25) mmol/L ABG O2 Saturation (94-97) % VBG pCO2 (37-51) mmHg VBG HCO3 (24-28) mmol/L Sodium (137-145) mmol/L Chloride (98-107) mmol/L Carbon Dioxide (22-30) mmol/L BUN (9-20) mg/dL Glucose (74-99) mg/dL POC Glucose (mg/dL) 138 H 203 H 178 H (75-99) mg/dL Calcium (8.4-10.2) mg/dL Troponin I (0.000-0.034) ng/mL C-Reactive Protein (<10.0) mg/L Total Protein (6.3-8.2) g/dL Albumin (3.5-5.0) g/dL Procalcitonin (0.02-0.09) ng/mL Urine Glucose (UA) (Negative) Urine Ketones (Negative) Urine Blood (Negative) Urine RBC (0-5) /hpf Urine Bacteria (None) /hpf Urine Mucus (None) /hpf 05/05/19 05/05/19 05/05/19 Range/Units 06:22 08:42 08:46 RBC 3.34 L (4.30-5.90) m/uL Hgb 10.9 L D (13.0-17.5) gm/dL Hct 32.1 L (39.0-53.0) % Plt Count 94 L (150-450) k/uL ESR 103 H (0-15) mm/hr APTT (22.0-30.0) sec ABG pCO2 (35-45) mmHg ABG HCO3 (21-25) mmol/L ABG O2 Saturation (94-97) % VBG pCO2 (37-51) mmHg VBG HCO3 (24-28) mmol/L Sodium (137-145) mmol/L Chloride (98-107) mmol/L Carbon Dioxide (22-30) mmol/L BUN (9-20) mg/dL Glucose (74-99) mg/dL POC Glucose (mg/dL) 150 H 142 H (75-99) mg/dL Calcium (8.4-10.2) mg/dL Troponin I (0.000-0.034) ng/mL C-Reactive Protein (<10.0) mg/L Total Protein (6.3-8.2) g/dL Albumin (3.5-5.0) g/dL Procalcitonin (0.02-0.09) ng/mL Urine Glucose (UA) (Negative) Urine Ketones (Negative) Urine Blood (Negative) Urine RBC (0-5) /hpf Urine Bacteria (None) /hpf Urine Mucus (None) /hpf 05/05/19 05/05/19 05/05/19 Range/Units 08:46 08:46 08:46 RBC (4.30-5.90) m/uL Hgb (13.0-17.5) gm/dL Hct (39.0-53.0) % Plt Count (150-450) k/uL ESR (0-15) mm/hr APTT 39.3 H (22.0-30.0) sec ABG pCO2 (35-45) mmHg ABG HCO3 (21-25) mmol/L ABG O2 Saturation (94-97) % VBG pCO2 (37-51) mmHg VBG HCO3 (24-28) mmol/L Sodium 129 L (137-145) mmol/L Chloride (98-107) mmol/L Carbon Dioxide 21 L (22-30) mmol/L BUN 40 H (9-20) mg/dL Glucose 110 H (74-99) mg/dL POC Glucose (mg/dL) (75-99) mg/dL Calcium 7.5 L (8.4-10.2) mg/dL Troponin I 0.359 H* (0.000-0.034) ng/mL C-Reactive Protein 201.6 H (<10.0) mg/L Total Protein (6.3-8.2) g/dL Albumin (3.5-5.0) g/dL Procalcitonin (0.02-0.09) ng/mL Urine Glucose (UA) (Negative) Urine Ketones (Negative) Urine Blood (Negative) Urine RBC (0-5) /hpf Urine Bacteria (None) /hpf Urine Mucus (None) /hpf 05/05/19 Range/Units 10:45 RBC (4.30-5.90) m/uL Hgb (13.0-17.5) gm/dL Hct (39.0-53.0) % Plt Count (150-450) k/uL ESR (0-15) mm/hr APTT (22.0-30.0) sec ABG pCO2 (35-45) mmHg ABG HCO3 (21-25) mmol/L ABG O2 Saturation (94-97) % VBG pCO2 (37-51) mmHg VBG HCO3 (24-28) mmol/L Sodium (137-145) mmol/L Chloride (98-107) mmol/L Carbon Dioxide (22-30) mmol/L BUN (9-20) mg/dL Glucose (74-99) mg/dL POC Glucose (mg/dL) 133 H (75-99) mg/dL Calcium (8.4-10.2) mg/dL Troponin I (0.000-0.034) ng/mL C-Reactive Protein (<10.0) mg/L Total Protein (6.3-8.2) g/dL Albumin (3.5-5.0) g/dL Procalcitonin (0.02-0.09) ng/mL Urine Glucose (UA) (Negative) Urine Ketones (Negative) Urine Blood (Negative) Urine RBC (0-5) /hpf Urine Bacteria (None) /hpf Urine Mucus (None) /hpf Microbiology - Last 24 Hours (Table) 05/04/19 17:20 Blood Culture Gram Stain - Preliminary Blood 05/04/19 17:20 Blood Culture - Final Blood 05/04/19 17:35 Blood Culture - Final Blood 05/04/19 04:40 Blood Culture - Final Blood Diabetes panel 05/04/19 05/05/19 Range/Units 18:41 08:46 Sodium 126 L 129 L (137-145) mmol/L Potassium 4.4 (3.5-5.1) mmol/L Chloride 97 L 103 (98-107) mmol/L Carbon Dioxide 17 L 21 L (22-30) mmol/L BUN 52 H 40 H (9-20) mg/dL Creatinine 1.09 0.72 (0.66-1.25) mg/dL Glucose 393 H 110 H (74-99) mg/dL Calcium 8.6 7.5 L (8.4-10.2) mg/dL AST 32 (17-59) U/L ALT 16 (4-49) U/L Alkaline Phosphatase 94 (38-126) U/L Total Protein 6.2 L (6.3-8.2) g/dL Albumin 2.6 L (3.5-5.0) g/dL Calcium panel 05/04/19 05/05/19 Range/Units 18:41 08:46 Calcium 8.6 7.5 L (8.4-10.2) mg/dL Albumin 2.6 L (3.5-5.0) g/dL Pituitary panel 05/04/19 05/05/19 Range/Units 18:41 08:46 Sodium 126 L 129 L (137-145) mmol/L Potassium 4.4 (3.5-5.1) mmol/L Chloride 97 L 103 (98-107) mmol/L Carbon Dioxide 17 L 21 L (22-30) mmol/L BUN 52 H 40 H (9-20) mg/dL Creatinine 1.09 0.72 (0.66-1.25) mg/dL Glucose 393 H 110 H (74-99) mg/dL Calcium 8.6 7.5 L (8.4-10.2) mg/dL Adrenal panel 05/04/19 05/05/19 Range/Units 18:41 08:46 Sodium 126 L 129 L (137-145) mmol/L Potassium 4.4 (3.5-5.1) mmol/L Chloride 97 L 103 (98-107) mmol/L Carbon Dioxide 17 L 21 L (22-30) mmol/L BUN 52 H 40 H (9-20) mg/dL Creatinine 1.09 0.72 (0.66-1.25) mg/dL Glucose 393 H 110 H (74-99) mg/dL Calcium 8.6 7.5 L (8.4-10.2) mg/dL Total Bilirubin 0.6 (0.2-1.3) mg/dL AST 32 (17-59) U/L ALT 16 (4-49) U/L Alkaline Phosphatase 94 (38-126) U/L Total Protein 6.2 L (6.3-8.2) g/dL Albumin 2.6 L (3.5-5.0) g/dL <Renetta Miramontes N - Last Filed: 05/05/19 21:30> History of Present Illness History of present illness: Patient seen and evaluated with above. History limited with information obtained per records as patient remains lethargic. I personally reviewed his initial Chest xray report that did not identify a clavicular fracture. CT of the chest independently reviewed with artifact and proximal left mid third clavicular fracture. Pulmonary is following and requested aspiration of fluid at fracture site. Patient has chronic alcoholism with COPD. Agree with ICU assessment. Patient admitted for primary multiple medical problems with secondary finding of clavicle fracture of unclear duration. Medical management advised. No acute surgical/trauma intervention at this time. Surgical - Exam Vital Signs Temp Pulse Resp BP Pulse Ox 102.1 F H 121 H 22 109/62 99 05/04/19 04:10 05/04/19 04:10 05/04/19 04:10 05/04/19 04:10 05/04/19 04:10 Results - Labs 05/05/19 08:46 05/05/19 08:46 Abnormal Lab Results - Last 24 Hours (Table) 05/04/19 05/04/19 05/04/19 Range/Units 04:40 21:28 22:29 RBC (4.30-5.90) m/uL Hgb (13.0-17.5) gm/dL Hct (39.0-53.0) % Plt Count (150-450) k/uL Neutrophils # (Manual) (1.3-7.7) k/uL ESR (0-15) mm/hr APTT (22.0-30.0) sec ABG pO2 (83-108) mmHg ABG O2 Saturation (94-97) % Sodium (137-145) mmol/L Carbon Dioxide (22-30) mmol/L BUN (9-20) mg/dL Glucose (74-99) mg/dL POC Glucose (mg/dL) 198 H 161 H (75-99) mg/dL Calcium (8.4-10.2) mg/dL Troponin I (0.000-0.034) ng/mL C-Reactive Protein (<10.0) mg/L Procalcitonin 3.25 H (0.02-0.09) ng/mL 05/05/19 05/05/19 05/05/19 Range/Units 00:24 02:26 04:24 RBC (4.30-5.90) m/uL Hgb (13.0-17.5) gm/dL Hct (39.0-53.0) % Plt Count (150-450) k/uL Neutrophils # (Manual) (1.3-7.7) k/uL ESR (0-15) mm/hr APTT (22.0-30.0) sec ABG pO2 (83-108) mmHg ABG O2 Saturation (94-97) % Sodium (137-145) mmol/L Carbon Dioxide (22-30) mmol/L BUN (9-20) mg/dL Glucose (74-99) mg/dL POC Glucose (mg/dL) 138 H 203 H 178 H (75-99) mg/dL Calcium (8.4-10.2) mg/dL Troponin I (0.000-0.034) ng/mL C-Reactive Protein (<10.0) mg/L Procalcitonin (0.02-0.09) ng/mL 05/05/19 05/05/19 05/05/19 Range/Units 06:22 08:42 08:46 RBC 3.34 L (4.30-5.90) m/uL Hgb 10.9 L D (13.0-17.5) gm/dL Hct 32.1 L (39.0-53.0) % Plt Count 94 L (150-450) k/uL Neutrophils # (Manual) 8.70 H (1.3-7.7) k/uL ESR 103 H (0-15) mm/hr APTT (22.0-30.0) sec ABG pO2 (83-108) mmHg ABG O2 Saturation (94-97) % Sodium (137-145) mmol/L Carbon Dioxide (22-30) mmol/L BUN (9-20) mg/dL Glucose (74-99) mg/dL POC Glucose (mg/dL) 150 H 142 H (75-99) mg/dL Calcium (8.4-10.2) mg/dL Troponin I (0.000-0.034) ng/mL C-Reactive Protein (<10.0) mg/L Procalcitonin (0.02-0.09) ng/mL 05/05/19 05/05/19 05/05/19 Range/Units 08:46 08:46 08:46 RBC (4.30-5.90) m/uL Hgb (13.0-17.5) gm/dL Hct (39.0-53.0) % Plt Count (150-450) k/uL Neutrophils # (Manual) (1.3-7.7) k/uL ESR (0-15) mm/hr APTT 39.3 H (22.0-30.0) sec ABG pO2 (83-108) mmHg ABG O2 Saturation (94-97) % Sodium 129 L (137-145) mmol/L Carbon Dioxide 21 L (22-30) mmol/L BUN 40 H (9-20) mg/dL Glucose 110 H (74-99) mg/dL POC Glucose (mg/dL) (75-99) mg/dL Calcium 7.5 L (8.4-10.2) mg/dL Troponin I 0.359 H* (0.000-0.034) ng/mL C-Reactive Protein 201.6 H (<10.0) mg/L Procalcitonin (0.02-0.09) ng/mL 05/05/19 05/05/19 05/05/19 Range/Units 10:45 11:51 14:04 RBC (4.30-5.90) m/uL Hgb (13.0-17.5) gm/dL Hct (39.0-53.0) % Plt Count (150-450) k/uL Neutrophils # (Manual) (1.3-7.7) k/uL ESR (0-15) mm/hr APTT (22.0-30.0) sec ABG pO2 (83-108) mmHg ABG O2 Saturation (94-97) % Sodium (137-145) mmol/L Carbon Dioxide (22-30) mmol/L BUN (9-20) mg/dL Glucose (74-99) mg/dL POC Glucose (mg/dL) 133 H 127 H (75-99) mg/dL Calcium (8.4-10.2) mg/dL Troponin I 0.526 H* (0.000-0.034) ng/mL C-Reactive Protein (<10.0) mg/L Procalcitonin (0.02-0.09) ng/mL 05/05/19 05/05/19 05/05/19 Range/Units 14:18 15:16 16:53 RBC (4.30-5.90) m/uL Hgb (13.0-17.5) gm/dL Hct (39.0-53.0) % Plt Count (150-450) k/uL Neutrophils # (Manual) (1.3-7.7) k/uL ESR (0-15) mm/hr APTT (22.0-30.0) sec ABG pO2 119 H (83-108) mmHg ABG O2 Saturation 98.7 H (94-97) % Sodium (137-145) mmol/L Carbon Dioxide (22-30) mmol/L BUN (9-20) mg/dL Glucose (74-99) mg/dL POC Glucose (mg/dL) 130 H 133 H (75-99) mg/dL Calcium (8.4-10.2) mg/dL Troponin I (0.000-0.034) ng/mL C-Reactive Protein (<10.0) mg/L Procalcitonin (0.02-0.09) ng/mL 05/05/19 Range/Units 19:53 RBC (4.30-5.90) m/uL Hgb (13.0-17.5) gm/dL Hct (39.0-53.0) % Plt Count (150-450) k/uL Neutrophils # (Manual) (1.3-7.7) k/uL ESR (0-15) mm/hr APTT (22.0-30.0) sec ABG pO2 (83-108) mmHg ABG O2 Saturation (94-97) % Sodium (137-145) mmol/L Carbon Dioxide (22-30) mmol/L BUN (9-20) mg/dL Glucose (74-99) mg/dL POC Glucose (mg/dL) 194 H (75-99) mg/dL Calcium (8.4-10.2) mg/dL Troponin I (0.000-0.034) ng/mL C-Reactive Protein (<10.0) mg/L Procalcitonin (0.02-0.09) ng/mL Microbiology - Last 24 Hours (Table) 05/04/19 17:20 Blood Culture Gram Stain - Preliminary Blood 05/04/19 17:35 Blood Culture Gram Stain - Preliminary Blood 05/04/19 04:40 Blood Culture Gram Stain - Preliminary Blood Blood Culture - Preliminary Group D Enterococcus 05/04/19 17:20 Blood Culture - Final Blood 05/04/19 17:35 Blood Culture - Final Blood 05/04/19 04:40 Blood Culture - Final Blood Diabetes panel 05/05/19 Range/Units 08:46 Sodium 129 L (137-145) mmol/L Potassium 4.4 (3.5-5.1) mmol/L Chloride 103 (98-107) mmol/L Carbon Dioxide 21 L (22-30) mmol/L BUN 40 H (9-20) mg/dL Creatinine 0.72 (0.66-1.25) mg/dL Glucose 110 H (74-99) mg/dL Calcium 7.5 L (8.4-10.2) mg/dL Calcium panel 05/05/19 Range/Units 08:46 Calcium 7.5 L (8.4-10.2) mg/dL Pituitary panel 05/05/19 Range/Units 08:46 Sodium 129 L (137-145) mmol/L Potassium 4.4 (3.5-5.1) mmol/L Chloride 103 (98-107) mmol/L Carbon Dioxide 21 L (22-30) mmol/L BUN 40 H (9-20) mg/dL Creatinine 0.72 (0.66-1.25) mg/dL Glucose 110 H (74-99) mg/dL Calcium 7.5 L (8.4-10.2) mg/dL Adrenal panel 05/05/19 Range/Units 08:46 Sodium 129 L (137-145) mmol/L Potassium 4.4 (3.5-5.1) mmol/L Chloride 103 (98-107) mmol/L Carbon Dioxide 21 L (22-30) mmol/L BUN 40 H (9-20) mg/dL Creatinine 0.72 (0.66-1.25) mg/dL Glucose 110 H (74-99) mg/dL Calcium 7.5 L (8.4-10.2) mg/dL
--- NOTE | 2019-05-05 11:23 | P.PN ---
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 He admits to daily alcohol intake. 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 We were asked to see in consultation for elevated troponin. He initially presented to the emergency department with symptoms of shortness of breath, cough and fall. Chest x-ray was performed this morning, suggested possible pulmonary arterial hypertension. Blood pressure 105/50 with a heart rate in the 90s, 100% on BiPAP. White blood cell count 10.2, hemoglobin 10.9, platelet count 94. Sodium 129, potassium 4.4, BUN 40, creatinine 0.7. Troponin 0.35. C-reactive protein 201. Echo remains pending. Objective - Vital Signs Vital signs: Vital Signs Temp 98.7 F 05/05/19 08:00 Pulse 120 H 05/05/19 08:52 Resp 20 05/05/19 08:00 BP 105/56 05/05/19 08:00 Pulse Ox 100 05/05/19 08:00 Intake & Output 05/04/19 05/05/19 05/05/19 18:59 06:59 18:59 Intake Total 259.385 1128.275 6.026 Output Total 1100 600 Balance -165.429 5917.275 6.026 Weight 56.699 kg 104.5 kg Intake: Intake, IV Titration 110.273 8319.275 6.026 Amount 0.9% NaCl with KCl 20 Meq 250 /l 1,000 ml @ 50 mls/hr IV .[id number] [facility] with Mvi, Adult No.4 with Vit K 10 ml with Thiamine 100 mg with Folic Acid 1 mg Rx#: [id number] Heparin Sod,Pork in 0.45% 67.246 111.161 NaCl 25,000 unit In 0.45 % NaCl 1 250ml.bag @ 12 UNITS/KG/HR 6.804 mls/hr IV .Q24H [facility] Rx#: [id number] Insulin Regular 100 unit 50.114 6.026 In Sodium Chloride 0.9% 100 ml @ Titrate IV .Q0M [facility] Rx#:[id number] Sodium Chloride 0.9% 1, 1040 000 ml @ 130 mls/hr IV . Q7H42M [facility] Rx#:[id number] Vancomycin 1,000 mg In 250 Sodium Chloride 0.9% 250 ml @ 125 mls/hr IVPB ON[facility] Rx#:[id number] Vancomycin 1,500 mg In 250 Sodium Chloride 0.9% 250 ml @ 125 mls/hr IVPB Q16H [facility] Rx#:[id number] Oral 596 Output: Urine 1100 600 Other: Voiding Method Indwelling Catheter Indwelling Catheter # Voids 0 # Bowel Movements 0 - Exam Physical examination: CONSTITUTIONAL: No apparent distress. HEENT: Head is normocephalic. Pupils are equal, round. Sclerae anicteric. Mucous membranes of the mouth are moist. No JVD. No carotid bruit. CHEST EXAMINATION: Lungs are clear to auscultation. No chest wall tenderness is noted on palpation or with deep breathing. HEART EXAMINATION: Regular rate and rhythm. S1, S2 heard. Faint systolic ejection murmur at the base, no gallops or rub. ABDOMEN: Soft, nontender. Positive bowel sounds. EXTREMITIES: 2+ peripheral pulses, no lower extremity edema and no calf tend erness. NEUROLOGIC EXAMINATION: Patient is awake, alert and oriented x3. - Labs CBC & Chem 7: 05/05/19 08:46 05/05/19 08:46 Labs: Abnormal Lab Results - Last 24 Hours (Table) 05/04/19 05/04/19 05/04/19 Range/Units 04:40 10:56 11:35 RBC (4.30-5.90) m/uL Hgb (13.0-17.5) gm/dL Hct (39.0-53.0) % Plt Count (150-450) k/uL Neutrophils # (Manual) (1.3-7.7) k/uL ESR (0-15) mm/hr APTT (22.0-30.0) sec ABG pCO2 (35-45) mmHg ABG HCO3 (21-25) mmol/L ABG O2 Saturation (94-97) % VBG pCO2 34 L (37-51) mmHg VBG HCO3 18 L (24-28) mmol/L Sodium (137-145) mmol/L Chloride (98-107) mmol/L Carbon Dioxide (22-30) mmol/L BUN (9-20) mg/dL Glucose (74-99) mg/dL POC Glucose (mg/dL) 379 H (75-99) mg/dL Calcium (8.4-10.2) mg/dL Troponin I (0.000-0.034) ng/mL C-Reactive Protein (<10.0) mg/L Total Protein (6.3-8.2) g/dL Albumin (3.5-5.0) g/dL Procalcitonin 3.25 H (0.02-0.09) ng/mL Urine Glucose (UA) (Negative) Urine Ketones (Negative) Urine Blood (Negative) Urine RBC (0-5) /hpf Urine Bacteria (None) /hpf Urine Mucus (None) /hpf 05/04/19 05/04/19 05/04/19 Range/Units 16:47 17:11 18:41 RBC (4.30-5.90) m/uL Hgb (13.0-17.5) gm/dL Hct (39.0-53.0) % Plt Count (150-450) k/uL Neutrophils # (Manual) (1.3-7.7) k/uL ESR (0-15) mm/hr APTT (22.0-30.0) sec ABG pCO2 30 L (35-45) mmHg ABG HCO3 19 L (21-25) mmol/L ABG O2 Saturation 97.6 H (94-97) % VBG pCO2 (37-51) mmHg VBG HCO3 (24-28) mmol/L Sodium 126 L (137-145) mmol/L Chloride 97 L (98-107) mmol/L Carbon Dioxide 17 L (22-30) mmol/L BUN 52 H (9-20) mg/dL Glucose 393 H (74-99) mg/dL POC Glucose (mg/dL) 419 H (75-99) mg/dL Calcium (8.4-10.2) mg/dL Troponin I (0.000-0.034) ng/mL C-Reactive Protein (<10.0) mg/L Total Protein 6.2 L (6.3-8.2) g/dL Albumin 2.6 L (3.5-5.0) g/dL Procalcitonin (0.02-0.09) ng/mL Urine Glucose (UA) (Negative) Urine Ketones (Negative) Urine Blood (Negative) Urine RBC (0-5) /hpf Urine Bacteria (None) /hpf Urine Mucus (None) /hpf 05/04/19 05/04/19 05/04/19 Range/Units 20:00 20:00 20:28 RBC (4.30-5.90) m/uL Hgb (13.0-17.5) gm/dL Hct (39.0-53.0) % Plt Count (150-450) k/uL Neutrophils # (Manual) (1.3-7.7) k/uL ESR (0-15) mm/hr APTT (22.0-30.0) sec ABG pCO2 (35-45) mmHg ABG HCO3 (21-25) mmol/L ABG O2 Saturation (94-97) % VBG pCO2 (37-51) mmHg VBG HCO3 (24-28) mmol/L Sodium (137-145) mmol/L Chloride (98-107) mmol/L Carbon Dioxide (22-30) mmol/L BUN (9-20) mg/dL Glucose (74-99) mg/dL POC Glucose (mg/dL) 382 H 318 H (75-99) mg/dL Calcium (8.4-10.2) mg/dL Troponin I (0.000-0.034) ng/mL C-Reactive Protein (<10.0) mg/L Total Protein (6.3-8.2) g/dL Albumin (3.5-5.0) g/dL Procalcitonin (0.02-0.09) ng/mL Urine Glucose (UA) 4+ H (Negative) Urine Ketones 1+ H (Negative) Urine Blood Small H (Negative) Urine RBC 8 H (0-5) /hpf Urine Bacteria Rare H (None) /hpf Urine Mucus Rare H (None) /hpf 05/04/19 05/04/19 05/04/19 Range/Units 21:04 21:28 22:29 RBC (4.30-5.90) m/uL Hgb (13.0-17.5) gm/dL Hct (39.0-53.0) % Plt Count (150-450) k/uL Neutrophils # (Manual) (1.3-7.7) k/uL ESR (0-15) mm/hr APTT (22.0-30.0) sec ABG pCO2 (35-45) mmHg ABG HCO3 (21-25) mmol/L ABG O2 Saturation (94-97) % VBG pCO2 (37-51) mmHg VBG HCO3 (24-28) mmol/L Sodium (137-145) mmol/L Chloride (98-107) mmol/L Carbon Dioxide (22-30) mmol/L BUN (9-20) mg/dL Glucose (74-99) mg/dL POC Glucose (mg/dL) 256 H 198 H 161 H (75-99) mg/dL Calcium (8.4-10.2) mg/dL Troponin I (0.000-0.034) ng/mL C-Reactive Protein (<10.0) mg/L Total Protein (6.3-8.2) g/dL Albumin (3.5-5.0) g/dL Procalcitonin (0.02-0.09) ng/mL Urine Glucose (UA) (Negative) Urine Ketones (Negative) Urine Blood (Negative) Urine RBC (0-5) /hpf Urine Bacteria (None) /hpf Urine Mucus (None) /hpf 05/05/19 05/05/19 05/05/19 Range/Units 00:24 02:26 04:24 RBC (4.30-5.90) m/uL Hgb (13.0-17.5) gm/dL Hct (39.0-53.0) % Plt Count (150-450) k/uL Neutrophils # (Manual) (1.3-7.7) k/uL ESR (0-15) mm/hr APTT (22.0-30.0) sec ABG pCO2 (35-45) mmHg ABG HCO3 (21-25) mmol/L ABG O2 Saturation (94-97) % VBG pCO2 (37-51) mmHg VBG HCO3 (24-28) mmol/L Sodium (137-145) mmol/L Chloride (98-107) mmol/L Carbon Dioxide (22-30) mmol/L BUN (9-20) mg/dL Glucose (74-99) mg/dL POC Glucose (mg/dL) 138 H 203 H 178 H (75-99) mg/dL Calcium (8.4-10.2) mg/dL Troponin I (0.000-0.034) ng/mL C-Reactive Protein (<10.0) mg/L Total Protein (6.3-8.2) g/dL Albumin (3.5-5.0) g/dL Procalcitonin (0.02-0.09) ng/mL Urine Glucose (UA) (Negative) Urine Ketones (Negative) Urine Blood (Negative) Urine RBC (0-5) /hpf Urine Bacteria (None) /hpf Urine Mucus (None) /hpf 05/05/19 05/05/19 05/05/19 Range/Units 06:22 08:42 08:46 RBC 3.34 L (4.30-5.90) m/uL Hgb 10.9 L D (13.0-17.5) gm/dL Hct 32.1 L (39.0-53.0) % Plt Count 94 L (150-450) k/uL Neutrophils # (Manual) 8.70 H (1.3-7.7) k/uL ESR 103 H (0-15) mm/hr APTT (22.0-30.0) sec ABG pCO2 (35-45) mmHg ABG HCO3 (21-25) mmol/L ABG O2 Saturation (94-97) % VBG pCO2 (37-51) mmHg VBG HCO3 (24-28) mmol/L Sodium (137-145) mmol/L Chloride (98-107) mmol/L Carbon Dioxide (22-30) mmol/L BUN (9-20) mg/dL Glucose (74-99) mg/dL POC Glucose (mg/dL) 150 H 142 H (75-99) mg/dL Calcium (8.4-10.2) mg/dL Troponin I (0.000-0.034) ng/mL C-Reactive Protein (<10.0) mg/L Total Protein (6.3-8.2) g/dL Albumin (3.5-5.0) g/dL Procalcitonin (0.02-0.09) ng/mL Urine Glucose (UA) (Negative) Urine Ketones (Negative) Urine Blood (Negative) Urine RBC (0-5) /hpf Urine Bacteria (None) /hpf Urine Mucus (None) /hpf 05/05/19 05/05/19 05/05/19 Range/Units 08:46 08:46 08:46 RBC (4.30-5.90) m/uL Hgb (13.0-17.5) gm/dL Hct (39.0-53.0) % Plt Count (150-450) k/uL Neutrophils # (Manual) (1.3-7.7) k/uL ESR (0-15) mm/hr APTT 39.3 H (22.0-30.0) sec ABG pCO2 (35-45) mmHg ABG HCO3 (21-25) mmol/L ABG O2 Saturation (94-97) % VBG pCO2 (37-51) mmHg VBG HCO3 (24-28) mmol/L Sodium 129 L (137-145) mmol/L Chloride (98-107) mmol/L Carbon Dioxide 21 L (22-30) mmol/L BUN 40 H (9-20) mg/dL Glucose 110 H (74-99) mg/dL POC Glucose (mg/dL) (75-99) mg/dL Calcium 7.5 L (8.4-10.2) mg/dL Troponin I 0.359 H* (0.000-0.034) ng/mL C-Reactive Protein 201.6 H (<10.0) mg/L Total Protein (6.3-8.2) g/dL Albumin (3.5-5.0) g/dL Procalcitonin (0.02-0.09) ng/mL Urine Glucose (UA) (Negative) Urine Ketones (Negative) Urine Blood (Negative) Urine RBC (0-5) /hpf Urine Bacteria (None) /hpf Urine Mucus (None) /hpf 05/05/19 Range/Units 10:45 RBC (4.30-5.90) m/uL Hgb (13.0-17.5) gm/dL Hct (39.0-53.0) % Plt Count (150-450) k/uL Neutrophils # (Manual) (1.3-7.7) k/uL ESR (0-15) mm/hr APTT (22.0-30.0) sec ABG pCO2 (35-45) mmHg ABG HCO3 (21-25) mmol/L ABG O2 Saturation (94-97) % VBG pCO2 (37-51) mmHg VBG HCO3 (24-28) mmol/L Sodium (137-145) mmol/L Chloride (98-107) mmol/L Carbon Dioxide (22-30) mmol/L BUN (9-20) mg/dL Glucose (74-99) mg/dL POC Glucose (mg/dL) 133 H (75-99) mg/dL Calcium (8.4-10.2) mg/dL Troponin I (0.000-0.034) ng/mL C-Reactive Protein (<10.0) mg/L Total Protein (6.3-8.2) g/dL Albumin (3.5-5.0) g/dL Procalcitonin (0.02-0.09) ng/mL Urine Glucose (UA) (Negative) Urine Ketones (Negative) Urine Blood (Negative) Urine RBC (0-5) /hpf Urine Bacteria (None) /hpf Urine Mucus (None) /hpf Microbiology - Last 24 Hours (Table) 05/04/19 17:20 Blood Culture Gram Stain - Preliminary Blood 05/04/19 17:20 Blood Culture - Final Blood 05/04/19 17:35 Blood Culture - Final Blood 05/04/19 04:40 Blood Culture - Final Blood Assessment and Plan Plan: ASSESSMENT AND PLAN #1Elevated troponin, may be related to underlying infectious process with fever and lactic acidosis. #2Lactic acidosis #3Febrile illness #4Hyponatremia #5Leukocytosis #6Thrombocytopenia #7History of valvular heart disease status post bioprosthetic aortic valve replacement #8Hypertension #9Dyslipidemia #10Peripheral vascular disease #11Alcohol abuse Plan We will discontinue the IV heparin today, increase beta david to 25 mg by mouth twice a day, review echocardiogram with Doppler study. DNP note has been reviewed, I agree with a documented findings and plan of care. Patient was seen and examined.
--- NOTE | 2019-05-05 11:28 | ECHOF ---
Referral Reason:CHF MEASUREMENTS -------- HEIGHT: 175.3 cm WEIGHT: 104.3 kg BP: 101/67 RVIDd: 3.7 cm (< 3.3) IVSd: 1.6 cm (0.6 - 1.1) LVIDd: 3.7 cm (3.9 - 5.3) LVPWd: 1.5 cm (0.6 - 1.1) IVSs: 2.3 cm LVIDs: 3.1 cm LVPWs: 1.8 cm LA Diam: 4.0 cm (2.7 - 3.8) LAESV Index (A-L): 36.97 ml/m Ao Diam: 3.4 cm (2.0 - 3.7) MV EXCURSION: 12.538 mm (> 18.000) MV EF SLOPE: 68 mm/s (70 - 150) EPSS: 0.6 cm MV E [place]: 1.42 m/s MV DecT: 217 ms MV A [place]: 1.57 m/s MV E/A Ratio: 0.91 AV maxP.89 mmHg AV meanP.94 mmHg RAP: 5.00 mmHg RVSP: 36.87 mmHg FINDINGS -------- Sinus rhythm. This was a technically difficult study with suboptimal views. The left ventricular size is normal. There is moderate concentric left ventricular hypertrophy. O verall left ventricular systolic function is normal with, an EF between 60 - 65 %. The right ventricle is mild to moderately enlarged. LA is moderately dilated 34-39 ml/m2 The right atrium is normal in size. Interatrial and interventricular septum intact. Peak/mean gradient across the Aortic Valve is 31.89mmHg / 18.94mmHg. Normally functioning bioprosth etic valve. The mitral valve leaflets are mildly thickened. Mild mitral annular calcification present. Mild m itral regurgitation is present. Mild tricuspid regurgitation present. There is mild pulmonary hypertension. The right ventricular systolic pressure, as measured by Doppler, is 36.87mmHg. The pulmonic valve was not well visualized. The aortic root size is normal. Normal inferior vena cava with normal inspiratory collapse consistent with estimated right atrial pre ssure of 5 mmHg. There is no pericardial effusion. CONCLUSIONS -------- 1. Sinus rhythm. 2. This was a technically difficult study with suboptimal views. 3. The left ventricular size is normal. 4. There is moderate concentric left ventricular hypertrophy. 5. Overall left ventricular systolic function is normal with, an EF between 60 - 65 %. 6. The right ventricle is mild to moderately enlarged. 7. LA is moderately dilated 34-39 ml/m2 8. The right atrium is normal in size. 9. Interatrial and interventricular septum intact. 10. Peak/mean gradient across the Aortic Valve is 31.89mmHg / 18.94mmHg. 11. Normally functioning bioprosthetic valve. 12. The mitral valve leaflets are mildly thickened. 13. Mild mitral annular calcification present. 14. Mild mitral regurgitation is present. 15. Mild tricuspid regurgitation present. 16. There is mild pulmonary hypertension. 17. The right ventricular systolic pressure, as measured by Doppler, is 36.87mmHg. 18. The pulmonic valve was not well visualized. 19. The aortic root size is normal. 20. Normal inferior vena cava with normal inspiratory collapse consistent with estimated right atrial pressure of 5 mmHg. 21. There is no pericardial effusion. COMPUTERIZED MILL MILL RECORDER: Gabby Paez RDCS
[2019-05-05 12:06] LABS: Glucose,Whole Blood 127 mg/dL (75-99)
--- NOTE | 2019-05-05 13:36 | P.PN ---
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 He admits to daily alcohol intake. 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 We have been asked to see in consultation for elevated troponin. He initially presented to the emergency department with symptoms of shortness of breath, cough and fall. He is unsure. It corresponding loss of consciousness. He states that he lost his balance falling on the left side of his body. He was noted to be febrile on admission with a temperature of 101.7. The patient states that he was sick since March 2019. Back then he was in [place]. On and off he was having fever. He was seen in [place] emergency department and he was given treatment and the exact treatment is not known to us at this point in time. The patient himself is a very poor historian. I think is lethargic and somewhat encephalopathic and is unable to volunteer detailed history. He came in to the hospital regarding these ongoing problems. The hospital, the patient was found to have a white cell count of 10.8. His initial lactic acid level was 3 and it dropped down to 1.0. Troponin was slightly positive at 0.657. ProBNP level was 4860. CT angiogram of the chest was done and was negative for pulmonary embolism. There was a soft tissue collection superior aspect of the left sternoclavicular joint at the level of the third and had with some tissue thickening and there is involvement of the sternum and there is also recommended the undisplaced fracture of the left clavicle. On examination, the patient is sore in the involved area without any significant erythema or warmth. For now he is on examination of Rocephin and Zithromax. He does have a cardiac murmur. He has a bioprosthetic aortic valve that was placed in 2014. On today's evaluation the patient is being seen in follow-up on 05/05/2019. The patient remains on a VATS with a tidal volume of 550. His current meds as the patient is at 10.6. He is pulling approximately 500 mL of tidal volume while being on this current moles. Overnight the patient became more restless and agitated. He apparently drinks and he is enjoying for around a week or 2 and he became confused. He was placed on the CIWA protocol and the patient was given Ativan where he received a total of 1.5 mg of Ativan. He remains on broad- spectrum antibiotics. He has been on a combination of Unasyn and vancomycin. Protocol troponin level is elevated. He was supposed to have a aspiration of the chest wall abscess/collection by interventional radiology. He was still seeking a consent from the significant other. Interventional radiology supposed to undergo this drainage of the possible chest wall abscess today once consent is obtained. Objective - Vital Signs Vital signs: Vital Signs Temp 98.7 F 05/05/19 08:00 Pulse 110 H 05/05/19 11:37 Resp 20 05/05/19 11:25 BP 119/76 05/05/19 11:25 Pulse Ox 100 05/05/19 11:25 Intake & Output 05/04/19 05/05/19 05/05/19 18:59 06:59 18:59 Intake Total 522.642 5301.275 129.494 Output Total 1100 600 Balance -089.186 3498.275 129.494 Weight 56.699 kg 104.5 kg Intake: Intake, IV Titration 718.234 5669.275 9.494 Amount 0.9% NaCl with KCl 20 Meq 250 /l 1,000 ml @ 50 mls/hr IV .[id number] DELISA with Mvi, Adult No.4 with Vit K 10 ml with Thiamine 100 mg with Folic Acid 1 mg Rx#: [id number] Heparin Sod,Pork in 0.45% 67.246 111.161 NaCl 25,000 unit In 0.45 % NaCl 1 250ml.bag @ 12 UNITS/KG/HR 6.804 mls/hr IV .Q24H DELISA Rx#: [id number] Insulin Regular 100 unit 50.114 9.494 In Sodium Chloride 0.9% 100 ml @ Titrate IV .Q0M DELISA Rx#:[id number] Sodium Chloride 0.9% 1, 1040 000 ml @ 130 mls/hr IV . Q7H42M DELISA Rx#:[id number] Vancomycin 1,000 mg In 250 Sodium Chloride 0.9% 250 ml @ 125 mls/hr IVPB ONCE STA Rx#:[id number] Vancomycin 1,500 mg In 250 Sodium Chloride 0.9% 250 ml @ 125 mls/hr IVPB Q16H [facility] Rx#:[id number] Oral 596 120 Output: Urine 1100 600 Other: Voiding Method Indwelling Catheter Indwelling Catheter # Voids 0 # Bowel Movements 0 - Exam Gen. appearance lethargic sleepy and he is a 40 sodium. He has taken Ativan for delirium tremens. Head exam was generally normal. There was no scleral icterus or corneal arcus. M ucous membranes were moist. Neck was supple and without jugular venous distension, thyromegaly, or carotid bruits. Carotids were easily palpable bilaterally. There was no adenopathy. There is some soreness along the left clavicular area without any major deformity. Lungs sounds are diminished and there is some few scattered expiratory wheeze. The area over the superior part of the sternum is nonswollen. There is tenderness upon palpation. No warmth. No purulent material can be seen within that area. Heart sounds are regular, positive S1-S2 and the patient has systolic ejection murmur grade 4/6 mainly affects and this is radiating to his neck. The sternum is dry clean and intact. There is palpation of the sternum at the level of the soft tissue collection as stated on the CAT scan. Abdominal exam revealed normal bowel sounds. The abdomen was soft, non-tender, and without masses, organomegaly, or appreciable enlargement of the abdominal aorta. Examination of the extremities revealed easily palpable radial, femoral and pedal pulses. There was no cyanosis, clubbing or edema. Examination of the skin revealed no evidence of significant rashes, suspicious appearing nevi or other concerning lesions. Neurologically following commands essentially simple commands anything communicated he is a very poor historian. Insight and memory is affected. - Labs CBC & Chem 7: 05/05/19 08:46 05/05/19 08:46 Labs: Abnormal Lab Results - Last 24 Hours (Table) 05/04/19 05/04/19 05/04/19 Range/Units 04:40 16:47 17:11 RBC (4.30-5.90) m/uL Hgb (13.0-17.5) gm/dL Hct (39.0-53.0) % Plt Count (150-450) k/uL Neutrophils # (Manual) (1.3-7.7) k/uL ESR (0-15) mm/hr APTT (22.0-30.0) sec ABG pCO2 30 L (35-45) mmHg ABG HCO3 19 L (21-25) mmol/L ABG O2 Saturation 97.6 H (94-97) % Sodium (137-145) mmol/L Chloride (98-107) mmol/L Carbon Dioxide (22-30) mmol/L BUN (9-20) mg/dL Glucose (74-99) mg/dL POC Glucose (mg/dL) 419 H (75-99) mg/dL Calcium (8.4-10.2) mg/dL Troponin I (0.000-0.034) ng/mL C-Reactive Protein (<10.0) mg/L Total Protein (6.3-8.2) g/dL Albumin (3.5-5.0) g/dL Procalcitonin 3.25 H (0.02-0.09) ng/mL Urine Glucose (UA) (Negative) Urine Ketones (Negative) Urine Blood (Negative) Urine RBC (0-5) /hpf Urine Bacteria (None) /hpf Urine Mucus (None) /hpf 05/04/19 05/04/19 05/04/19 Range/Units 18:41 20:00 20:00 RBC (4.30-5.90) m/uL Hgb (13.0-17.5) gm/dL Hct (39.0-53.0) % Plt Count (150-450) k/uL Neutrophils # (Manual) (1.3-7.7) k/uL ESR (0-15) mm/hr APTT (22.0-30.0) sec ABG pCO2 (35-45) mmHg ABG HCO3 (21-25) mmol/L ABG O2 Saturation (94-97) % Sodium 126 L (137-145) mmol/L Chloride 97 L (98-107) mmol/L Carbon Dioxide 17 L (22-30) mmol/L BUN 52 H (9-20) mg/dL Glucose 393 H (74-99) mg/dL POC Glucose (mg/dL) 382 H (75-99) mg/dL Calcium (8.4-10.2) mg/dL Troponin I (0.000-0.034) ng/mL C-Reactive Protein (<10.0) mg/L Total Protein 6.2 L (6.3-8.2) g/dL Albumin 2.6 L (3.5-5.0) g/dL Procalcitonin (0.02-0.09) ng/mL Urine Glucose (UA) 4+ H (Negative) Urine Ketones 1+ H (Negative) Urine Blood Small H (Negative) Urine RBC 8 H (0-5) /hpf Urine Bacteria Rare H (None) /hpf Urine Mucus Rare H (None) /hpf 05/04/19 05/04/19 05/04/19 Range/Units 20:28 21:04 21:28 RBC (4.30-5.90) m/uL Hgb (13.0-17.5) gm/dL Hct (39.0-53.0) % Plt Count (150-450) k/uL Neutrophils # (Manual) (1.3-7.7) k/uL ESR (0-15) mm/hr APTT (22.0-30.0) sec ABG pCO2 (35-45) mmHg ABG HCO3 (21-25) mmol/L ABG O2 Saturation (94-97) % Sodium (137-145) mmol/L Chloride (98-107) mmol/L Carbon Dioxide (22-30) mmol/L BUN (9-20) mg/dL Glucose (74-99) mg/dL POC Glucose (mg/dL) 318 H 256 H 198 H (75-99) mg/dL Calcium (8.4-10.2) mg/dL Troponin I (0.000-0.034) ng/mL C-Reactive Protein (<10.0) mg/L Total Protein (6.3-8.2) g/dL Albumin (3.5-5.0) g/dL Procalcitonin (0.02-0.09) ng/mL Urine Glucose (UA) (Negative) Urine Ketones (Negative) Urine Blood (Negative) Urine RBC (0-5) /hpf Urine Bacteria (None) /hpf Urine Mucus (None) /hpf 05/04/19 05/05/19 05/05/19 Range/Units 22:29 00:24 02:26 RBC (4.30-5.90) m/uL Hgb (13.0-17.5) gm/dL Hct (39.0-53.0) % Plt Count (150-450) k/uL Neutrophils # (Manual) (1.3-7.7) k/uL ESR (0-15) mm/hr APTT (22.0-30.0) sec ABG pCO2 (35-45) mmHg ABG HCO3 (21-25) mmol/L ABG O2 Saturation (94-97) % Sodium (137-145) mmol/L Chloride (98-107) mmol/L Carbon Dioxide (22-30) mmol/L BUN (9-20) mg/dL Glucose (74-99) mg/dL POC Glucose (mg/dL) 161 H 138 H 203 H (75-99) mg/dL Calcium (8.4-10.2) mg/dL Troponin I (0.000-0.034) ng/mL C-Reactive Protein (<10.0) mg/L Total Protein (6.3-8.2) g/dL Albumin (3.5-5.0) g/dL Procalcitonin (0.02-0.09) ng/mL Urine Glucose (UA) (Negative) Urine Ketones (Negative) Urine Blood (Negative) Urine RBC (0-5) /hpf Urine Bacteria (None) /hpf Urine Mucus (None) /hpf 05/05/19 05/05/19 05/05/19 Range/Units 04:24 06:22 08:42 RBC (4.30-5.90) m/uL Hgb (13.0-17.5) gm/dL Hct (39.0-53.0) % Plt Count (150-450) k/uL Neutrophils # (Manual) (1.3-7.7) k/uL ESR (0-15) mm/hr APTT (22.0-30.0) sec ABG pCO2 (35-45) mmHg ABG HCO3 (21-25) mmol/L ABG O2 Saturation (94-97) % Sodium (137-145) mmol/L Chloride (98-107) mmol/L Carbon Dioxide (22-30) mmol/L BUN (9-20) mg/dL Glucose (74-99) mg/dL POC Glucose (mg/dL) 178 H 150 H 142 H (75-99) mg/dL Calcium (8.4-10.2) mg/dL Troponin I (0.000-0.034) ng/mL C-Reactive Protein (<10.0) mg/L Total Protein (6.3-8.2) g/dL Albumin (3.5-5.0) g/dL Procalcitonin (0.02-0.09) ng/mL Urine Glucose (UA) (Negative) Urine Ketones (Negative) Urine Blood (Negative) Urine RBC (0-5) /hpf Urine Bacteria (None) /hpf Urine Mucus (None) /hpf 05/05/19 05/05/19 05/05/19 Range/Units 08:46 08:46 08:46 RBC 3.34 L (4.30-5.90) m/uL Hgb 10.9 L D (13.0-17.5) gm/dL Hct 32.1 L (39.0-53.0) % Plt Count 94 L (150-450) k/uL Neutrophils # (Manual) 8.70 H (1.3-7.7) k/uL ESR 103 H (0-15) mm/hr APTT 39.3 H (22.0-30.0) sec ABG pCO2 (35-45) mmHg ABG HCO3 (21-25) mmol/L ABG O2 Saturation (94-97) % Sodium 129 L (137-145) mmol/L Chloride (98-107) mmol/L Carbon Dioxide 21 L (22-30) mmol/L BUN 40 H (9-20) mg/dL Glucose 110 H (74-99) mg/dL POC Glucose (mg/dL) (75-99) mg/dL Calcium 7.5 L (8.4-10.2) mg/dL Troponin I (0.000-0.034) ng/mL C-Reactive Protein 201.6 H (<10.0) mg/L Total Protein (6.3-8.2) g/dL Albumin (3.5-5.0) g/dL Procalcitonin (0.02-0.09) ng/mL Urine Glucose (UA) (Negative) Urine Ketones (Negative) Urine Blood (Negative) Urine RBC (0-5) /hpf Urine Bacteria (None) /hpf Urine Mucus (None) /hpf 05/05/19 05/05/19 05/05/19 Range/Units 08:46 10:45 11:51 RBC (4.30-5.90) m/uL Hgb (13.0-17.5) gm/dL Hct (39.0-53.0) % Plt Count (150-450) k/uL Neutrophils # (Manual) (1.3-7.7) k/uL ESR (0-15) mm/hr APTT (22.0-30.0) sec ABG pCO2 (35-45) mmHg ABG HCO3 (21-25) mmol/L ABG O2 Saturation (94-97) % Sodium (137-145) mmol/L Chloride (98-107) mmol/L Carbon Dioxide (22-30) mmol/L BUN (9-20) mg/dL Glucose (74-99) mg/dL POC Glucose (mg/dL) 133 H 127 H (75-99) mg/dL Calcium (8.4-10.2) mg/dL Troponin I 0.359 H* (0.000-0.034) ng/mL C-Reactive Protein (<10.0) mg/L Total Protein (6.3-8.2) g/dL Albumin (3.5-5.0) g/dL Procalcitonin (0.02-0.09) ng/mL Urine Glucose (UA) (Negative) Urine Ketones (Negative) Urine Blood (Negative) Urine RBC (0-5) /hpf Urine Bacteria (None) /hpf Urine Mucus (None) /hpf Microbiology - Last 24 Hours (Table) 05/04/19 17:20 Blood Culture Gram Stain - Preliminary Blood 05/04/19 17:20 Blood Culture - Final Blood 05/04/19 17:35 Blood Culture - Final Blood 05/04/19 04:40 Blood Culture - Final Blood Assessment and Plan Plan: 1 febrile illness , subacute with ongoing episodes of fever with a temperature of 102.1. Currently afebrile. Obviously this raises concern for underlying sepsis. No evidence of pneumonia. No obvious source of infection. However, one area of concern is a soft tissue density that is present over the sternum as stated on the CAT scan. This area is present along the left sternoclavicular joint measuring 5 x 5.3 cm in size. Consider underlying abscess. Underlying infective endocarditis cannot be completely excluded. The patient has a cardiac murmur with a bioprosthetic aortic valve. No open wounds or sores. On today's evaluation of 05/05/2019 the patient is afebrile. His last temperature spike was yesterday. Blood cultures of been negative. The plan is to proceed with a aspiration of the chest wall abscess. The patient is currently on a combination of Unasyn and vancomycin. Chronic calcitonin level is elevated. This is suggestive of an underlying bacterial infection. 2 mild lactic acidosis, improved 3 fever 4 hyponatremia, likely acute, and his sodium level is improving is up to 129. The patient is on IV fluids and currently receiving, normal saline at the rate of 130 mL an hour 5 aortic valve replacement/bioprosthetic aortic valve in 2014 6 lethargy and diminished level of consciousness secondary to above, possibly secondary to either delirium tremens or encephalopathy/sepsis. The patient was given Ativan. He remains quite lethargic yet arousable and is following co mmands and answering questions was fully arouse. I took him off the BiPAP and put him on 3 L per minute nasal cannula. 7 diabetes mellitus type 2 8 hypertension 9 hyperlipidemia 10 gout 11 COPD 12 troponin leak likely secondary to above currently on IV heparin 13 Peripheral vascular disease 14 history of alcoholism 15 Clavicular fracture secondary to fall Plan Procalcitonin level elevated consistent with bacterial infection Awaiting the results of the blood cultures Continue Unasyn and vancomycin Put the patient on 3 L about 2 by nasal cannula and check a blood gas and discontinue BiPAP for now Echocardiogram shows an ejection fraction of 6065% and normally functioning bioprosthetic aortic valve without any vegetations. Continue normal saline at the rate of 130 mL an hour Obtain consent for drainage of the abscess/chest wall lesion Insulin drip for blood sugar control Transfer this patient to the intensive care unit for further monitoring We'll continue to follow.
[2019-05-05 14:20] LABS: ABG Base Excess -4.2 mmol/L; ABG HCO3 21 mmol/L (21-25); ABG Oxygen Saturation 98.7 % (94-97); ABG PCO2 35 mmHg (35-45); ABG PH 7.38 (7.35-7.45); ABG PO2 119 mmHg (83-108); ABG TCO2 22 mmol/L (19-24); Allen Test Performed? Yes
[2019-05-05] MEDS: MAGNESIUM OXIDE 400 MG TAB PO SCH (14:47)
[2019-05-05] MEDS: LORATADINE 10 MG TAB PO SCH (14:47)
[2019-05-05 15:18] LABS: Glucose,Whole Blood 130 mg/dL (75-99)
--- NOTE | 2019-05-05 16:13 | US ---
EXAMINATION TYPE: US asp abscess/hemat/cyst DATE OF EXAM: 05/05/2019 HISTORY: Left sternoclavicular mass and abnormal CT Correlation to CT 05/04/2019 FINDINGS: Maximal barrier technique was utilized. Hand hygiene achieved with soap and water. The ski n overlying a suitable path to the patient's left sternoclavicular joint in the left upper chest was localized with ultrasound and the overlying skin prepped and draped. Ultrasound was utilized with st erile technique. Lidocaine was used for local anesthesia. 21-gauge needle was advanced under ultraso und guidance into the area of abnormality is localized under ultrasound, attempted aspiration yielded droplet of sanguinous material. Specimen submitted in formalin to Pathology, microbiology. Followin g the procedure, hemostasis achieved and the patient is discharged in stable condition without compli cation. IMPRESSION:STATUS POST ULTRASOUND GUIDED NEEDLE ASPIRATION BIOPSY OF left sternoclavicular MASS, PATH OLOGY and microbiology IS PENDING, appearance may be that of septic arthritis. THIS PROCEDURE IS PER FORMED BY THE UNDERSIGNED.
[2019-05-05] MEDS: VANCOMYCIN 1,500 MG in SODIUM CHLORIDE 0.9% 250 ML IVPB SCH (16:20)
[2019-05-05 16:54] LABS: Glucose,Whole Blood 133 mg/dL (75-99)
[2019-05-05 19:54] LABS: Glucose,Whole Blood 194 mg/dL (75-99)
[2019-05-05] MEDS: LISINOPRIL 10 MG TAB PO SCH (20:11)
[2019-05-05] MEDS: MONTELUKAST 10 MG TAB PO SCH (20:11)
[2019-05-05] MEDS: METOPROLOL TARTRATE 25 MG TAB PO SCH (20:11)
--- NOTE | 2019-05-05 22:24 | P.PN ---
Subjective Progress Note Date: 05/05/19 The pleasant 68-year-old white male was admitted for multiple medical problems. He's currently on BiPAP maintaining saturations currently under investigation for acute metabolic encephalopathy falls and comminuted fracture of his clavicle forming an abscess-like mass. Today he supposed to undergo drainage of the left clavicle 5 cm area of concern. Objective - Vital Signs Vital signs: Vital Signs Temp 97.6 F 05/05/19 20:00 Pulse 93 05/05/19 21:00 Resp 12 05/05/19 21:00 BP 115/64 05/05/19 21:00 Pulse Ox 98 05/05/19 21:00 Intake & Output 05/05/19 05/05/19 05/06/19 06:59 18:59 06:59 Intake Total 1701.275 133.113 360 Output Total 600 350 Balance 1101.275 133.113 10 Weight 104.5 kg 104.5 kg Intake: IV 360 0.9% NaCl with KCl 20 Meq 100 /l 1,000 ml @ 50 mls/hr IV .[id number] [facility]ISA with Mvi, Adult No.4 with Vit K 10 ml with Thiamine 100 mg with Folic Acid 1 mg Rx#: [id number] Sodium Chloride 0.9% 1, 260 000 ml @ 130 mls/hr IV . Q7H42M [facility] Rx#:[id number] Intake, IV Titration 1701.275 13.113 Amount 0.9% NaCl with KCl 20 Meq 250 /l 1,000 ml @ 50 mls/hr IV .[id number] DELISA with Mvi, Adult No.4 with Vit K 10 ml with Thiamine 100 mg with Folic Acid 1 mg Rx#: [id number] Heparin Sod,Pork in 0.45% 111.161 NaCl 25,000 unit In 0.45 % NaCl 1 250ml.bag @ 12 UNITS/KG/HR 6.804 mls/hr IV .Q24H [facility] Rx#: [id number] Insulin Regular 100 unit 50.114 13.113 In Sodium Chloride 0.9% 100 ml @ Titrate IV .Q0M [facility] Rx#:[id number] Sodium Chloride 0.9% 1, 1040 000 ml @ 130 mls/hr IV . Q7H42M [facility] Rx#:[id number] Vancomycin 1,500 mg In 250 Sodium Chloride 0.9% 250 ml @ 125 mls/hr IVPB Q16H [facility] Rx#:[id number] Oral 120 Output: Urine 600 350 Other: Voiding Method Indwelling Catheter Indwelling Catheter Indwelling Catheter # Voids 0 # Bowel Movements 0 - Exam GENERAL: This is a -68 year-old in apparent distress at the time of examination. He is currently uncomfortable with his CPAP apparatus. HEENT: Head is atraumatic, normocephalic. Pupils are equal, round, and reactive to light. Sclerae anicteric. Conjunctivae are clear. Mucus membranes of the mouth are moist. Neck is supple. RESPIRATORY: Decreased breath sounds to auscultation. With wheezes and rales. No use of accessory muscles. CARDIOVASCULAR: Regular rate and rhythm. Positive for systolic murmur auscultated. GASTROINTESTINAL: No distention noted. Abdomen soft and round. Normal active bowel sounds auscultated x 4 quadrants. No pain or tenderness noted upon p alpation. INTEGUMENTARY: No cyanosis. No jaundice. No rashes noted. No cellulitis noted. EXTREMITIES: 2+ peripheral pulses. Left upper sternal clavicular area tenderness noted.. No calf tenderness noted. NEUROLOGIC: Confusion and lack of appropriate answering commands. PSYCHIATRIC: Confused and lethargic during our examination. Appropriate affect. Impaired judgement and insight. - Labs CBC & Chem 7: 05/05/19 08:46 05/05/19 08:46 Labs: Abnormal Lab Results - Last 24 Hours (Table) 05/04/19 05/04/19 05/04/19 Range/Units 04:40 21:28 22:29 RBC (4.30-5.90) m/uL Hgb (13.0-17.5) gm/dL Hct (39.0-53.0) % Plt Count (150-450) k/uL Neutrophils # (Manual) (1.3-7.7) k/uL ESR (0-15) mm/hr APTT (22.0-30.0) sec ABG pO2 (83-108) mmHg ABG O2 Saturation (94-97) % Sodium (137-145) mmol/L Carbon Dioxide (22-30) mmol/L BUN (9-20) mg/dL Glucose (74-99) mg/dL POC Glucose (mg/dL) 198 H 161 H (75-99) mg/dL Calcium (8.4-10.2) mg/dL Troponin I (0.000-0.034) ng/mL C-Reactive Protein (<10.0) mg/L Procalcitonin 3.25 H (0.02-0.09) ng/mL 05/05/19 05/05/19 05/05/19 Range/Units 00:24 02:26 04:24 RBC (4.30-5.90) m/uL Hgb (13.0-17.5) gm/dL Hct (39.0-53.0) % Plt Count (150-450) k/uL Neutrophils # (Manual) (1.3-7.7) k/uL ESR (0-15) mm/hr APTT (22.0-30.0) sec ABG pO2 (83-108) mmHg ABG O2 Saturation (94-97) % Sodium (137-145) mmol/L Carbon Dioxide (22-30) mmol/L BUN (9-20) mg/dL Glucose (74-99) mg/dL POC Glucose (mg/dL) 138 H 203 H 178 H (75-99) mg/dL Calcium (8.4-10.2) mg/dL Troponin I (0.000-0.034) ng/mL C-Reactive Protein (<10.0) mg/L Procalcitonin (0.02-0.09) ng/mL 05/05/19 05/05/19 05/05/19 Range/Units 06:22 08:42 08:46 RBC 3.34 L (4.30-5.90) m/uL Hgb 10.9 L D (13.0-17.5) gm/dL Hct 32.1 L (39.0-53.0) % Plt Count 94 L (150-450) k/uL Neutrophils # (Manual) 8.70 H (1.3-7.7) k/uL ESR 103 H (0-15) mm/hr APTT (22.0-30.0) sec ABG pO2 (83-108) mmHg ABG O2 Saturation (94-97) % Sodium (137-145) mmol/L Carbon Dioxide (22-30) mmol/L BUN (9-20) mg/dL Glucose (74-99) mg/dL POC Glucose (mg/dL) 150 H 142 H (75-99) mg/dL Calcium (8.4-10.2) mg/dL Troponin I (0.000-0.034) ng/mL C-Reactive Protein (<10.0) mg/L Procalcitonin (0.02-0.09) ng/mL 05/05/19 05/05/19 05/05/19 Range/Units 08:46 08:46 08:46 RBC (4.30-5.90) m/uL Hgb (13.0-17.5) gm/dL Hct (39.0-53.0) % Plt Count (150-450) k/uL Neutrophils # (Manual) (1.3-7.7) k/uL ESR (0-15) mm/hr APTT 39.3 H (22.0-30.0) sec ABG pO2 (83-108) mmHg ABG O2 Saturation (94-97) % Sodium 129 L (137-145) mmol/L Carbon Dioxide 21 L (22-30) mmol/L BUN 40 H (9-20) mg/dL Glucose 110 H (74-99) mg/dL POC Glucose (mg/dL) (75-99) mg/dL Calcium 7.5 L (8.4-10.2) mg/dL Troponin I 0.359 H* (0.000-0.034) ng/mL C-Reactive Protein 201.6 H (<10.0) mg/L Procalcitonin (0.02-0.09) ng/mL 05/05/19 05/05/19 05/05/19 Range/Units 10:45 11:51 14:04 RBC (4.30-5.90) m/uL Hgb (13.0-17.5) gm/dL Hct (39.0-53.0) % Plt Count (150-450) k/uL Neutrophils # (Manual) (1.3-7.7) k/uL ESR (0-15) mm/hr APTT (22.0-30.0) sec ABG pO2 (83-108) mmHg ABG O2 Saturation (94-97) % Sodium (137-145) mmol/L Carbon Dioxide (22-30) mmol/L BUN (9-20) mg/dL Glucose (74-99) mg/dL POC Glucose (mg/dL) 133 H 127 H (75-99) mg/dL Calcium (8.4-10.2) mg/dL Troponin I 0.526 H* (0.000-0.034) ng/mL C-Reactive Protein (<10.0) mg/L Procalcitonin (0.02-0.09) ng/mL 05/05/19 05/05/19 05/05/19 Range/Units 14:18 15:16 16:53 RBC (4.30-5.90) m/uL Hgb (13.0-17.5) gm/dL Hct (39.0-53.0) % Plt Count (150-450) k/uL Neutrophils # (Manual) (1.3-7.7) k/uL ESR (0-15) mm/hr APTT (22.0-30.0) sec ABG pO2 119 H (83-108) mmHg ABG O2 Saturation 98.7 H (94-97) % Sodium (137-145) mmol/L Carbon Dioxide (22-30) mmol/L BUN (9-20) mg/dL Glucose (74-99) mg/dL POC Glucose (mg/dL) 130 H 133 H (75-99) mg/dL Calcium (8.4-10.2) mg/dL Troponin I (0.000-0.034) ng/mL C-Reactive Protein (<10.0) mg/L Procalcitonin (0.02-0.09) ng/mL 05/05/19 05/05/19 Range/Units 19:53 20:28 RBC (4.30-5.90) m/uL Hgb (13.0-17.5) gm/dL Hct (39.0-53.0) % Plt Count (150-450) k/uL Neutrophils # (Manual) (1.3-7.7) k/uL ESR (0-15) mm/hr APTT (22.0-30.0) sec ABG pO2 (83-108) mmHg ABG O2 Saturation (94-97) % Sodium (137-145) mmol/L Carbon Dioxide (22-30) mmol/L BUN (9-20) mg/dL Glucose (74-99) mg/dL POC Glucose (mg/dL) 194 H (75-99) mg/dL Calcium (8.4-10.2) mg/dL Troponin I 0.551 H* (0.000-0.034) ng/mL C-Reactive Protein (<10.0) mg/L Procalcitonin (0.02-0.09) ng/mL Microbiology - Last 24 Hours (Table) 05/04/19 17:20 Blood Culture Gram Stain - Preliminary Blood 05/04/19 17:35 Blood Culture Gram Stain - Preliminary Blood 05/04/19 04:40 Blood Culture Gram Stain - Preliminary Blood Blood Culture - Preliminary Group D Enterococcus 05/04/19 17:20 Blood Culture - Final Blood 05/04/19 17:35 Blood Culture - Final Blood 05/04/19 04:40 Blood Culture - Final Blood Assessment and Plan (1) Chest wall abscess Current Visit: Yes Status: Acute Code(s): L02.213 - CUTANEOUS ABSCESS OF CHEST WALL SNOMED Code(s): 69359374 (2) Clavicle fracture Current Visit: Yes Status: Acute Code(s): S42.009A - FRACTURE OF UNSP PART OF UNSP CLAVICLE, INIT FOR CLOS FX SNOMED Code(s): 64777641 (3) Dyspnea Current Visit: Yes Status: Acute Code(s): R06.00 - DYSPNEA, UNSPECIFIED SNOMED Code(s): 486406814 (4) Sepsis Current Visit: Yes Status: Acute Code(s): A41.9 - SEPSIS, UNSPECIFIED ORGANISM SNOMED Code(s): 48171300 (5) Aortic valve replaced Current Visit: No Status: Acute Code(s): Z95.2 - PRESENCE OF PROSTHETIC HEART VALVE SNOMED Code(s): 2462698521749 (6) Diabetes type 2, controlled Current Visit: Yes Status: Acute Code(s): E11.9 - TYPE 2 DIABETES MELLITUS WITHOUT COMPLICATIONS SNOMED Code(s): 52352326 (7) Elevated troponin level Current Visit: Yes Status: Acute Code(s): R79.89 - OTHER SPECIFIED ABNORMAL FINDINGS OF BLOOD CHEMISTRY SNOMED Code(s): 619060034 (8) Respiratory failure Current Visit: Yes Status: Acute Code(s): J96.90 - RESPIRATORY FAILURE, UNSP, UNSP W HYPOXIA OR HYPERCAPNIA SNOMED Code(s): 964406465 Plan: Patient will undergo incision and drainage of left clavicular area today is currently under BiPAP and was moved to intensive care. We'll continue to follow patient's overall guarded prognosis carefully. Continue IV antibiotics and await final cultures. Continue cardiopulmonary support and BiPAP.
[2019-05-06] MEDS: SODIUM CHLORIDE 0.9% 1,000 ML IV SCH ×4 (00:06→17:09)
[2019-05-06] MEDS: AMPICILLIN-SULBACTAM 3 GM in SODIUM CHLORIDE 0.9% 100 ML IVPB SCH ×4 (00:08→18:04)
[2019-05-06] MEDS: HYDROcodone/APAP 5-325MG 1 EACH TAB PO PRN ×2 (00:46→23:29)
[2019-05-06] MEDS: LORazepam 2 MG/ML INJ IV PRN (00:52)
[2019-05-06] MEDS: VANCOMYCIN 1,500 MG in SODIUM CHLORIDE 0.9% 250 ML IVPB SCH ×3 (03:53→21:28)
--- NOTE | 2019-05-06 05:34 | PN ---
PROGRESS NOTE DATE OF SERVICE: 05/05/2019 REASON FOR FOLLOWUP: Left clavicle abscess and osteomyelitis. INTERVAL HISTORY: The patient was seen on rounds this morning. The patient has been afebrile. The patient has been breathing comfortably. He has been on the BiPAP and mostly the provided most of the history. No vomiting or diarrhea has been reported. The patient remains to be lethargic. Clinical course complicated by development of positive bacteremia. REVIEW OF SYSTEMS: Could not be obtained because of him on the BiPAP. PAST MEDICAL AND SURGICAL HISTORY: No change. MEDICATIONS: Reviewed. PHYSICAL EXAMINATION: Blood pressure is 114/61 with a pulse of 87, temperature 98. He is 100% on BiPAP. General description is an elderly male lying in bed in no distress. RESPIRATORY SYSTEM: Unlabored breathing, decreased breath sounds in the base, no wheeze. HEART: S1, S2. Regular rate and rhythm. ABDOMEN: Soft, no tenderness. EXTREMITIES: No edema of feet. LABS: Hemoglobin is 10.9, white count 10.2, creatinine is a 0.72. Blood cultures with enterococcus. DIAGNOSTIC IMPRESSION AND PLAN: Patient with Enterococcus bacteremia in this patient who did have a left clavicular abscess and possible osteomyelitis. The patient's UA has been negative. Enterococcus common cause of pneumonia. The patient is currently covered with Unasyn and the vancomycin while waiting for sensitivity. Blood cultures were repeated to document clearance and monitor his clinical course closely. at the bedside her questions and concerns were answered. MMODL / IJN: [id number] /
[2019-05-06 05:43] LABS: Glucose,Whole Blood 151 mg/dL (75-99)
[2019-05-06 06:06] LABS: Basophils % (A) 0 %; Eosinophils % (A) 0 %; HGB 10.4 gm/dL (13.0-17.5); Lymphocytes # (A) 0.8 k/uL (1.0-4.8); Lymphocytes % (A) 7 %; MCH 32.9 pg (25.0-35.0); MCHC 33.5 g/dL (31.0-37.0); MCV 98.1 fL (80.0-100.0); Monocytes # (A) 0.3 k/uL (0-1.0); Monocytes % (A) 3 %; Neutrophils # (A) 10.9 k/uL (1.3-7.7); Neutrophils % (A) 87 %; RBC 3.16 m/uL (4.30-5.90); RDW 13.5 % (11.5-15.5); WBC 12.5 k/uL (3.8-10.6)
[2019-05-06 06:12] LABS: Platelet Count 82 k/uL (150-450)
[2019-05-06 06:19] LABS: African American GFR (CKD) >90 (>60 ml/min/1.73 sqM); Anion Gap 5 mmol/L; Blood Urea Nitrogen 22 mg/dL (9-20); Calcium 7.4 mg/dL (8.4-10.2); Carbon Dioxide 20 mmol/L (22-30); Chloride 105 mmol/L (98-107); Glucose 142 mg/dL (74-99); Non-African American GFR(CKD) >90 (>60 ml/min/1.73 sqM); Potassium 4.2 mmol/L (3.5-5.1); Sodium 130 mmol/L (137-145)
[2019-05-06] MEDS: INSULIN ASPART (NovoLOG) 100 UNIT/ML VIAL SQ SCH ×4 (06:30→20:09)
[2019-05-06 06:35] LABS: C Reactive Protein 190.3 mg/L (<10.0)
[2019-05-06] MEDS: FUROSEMIDE 20 MG TAB PO SCH (08:31)
[2019-05-06] MEDS: MAGNESIUM OXIDE 400 MG TAB PO SCH (08:31)
[2019-05-06] MEDS: ASPIRIN 81 MG PO SCH (08:31)
[2019-05-06] MEDS: LORATADINE 10 MG TAB PO SCH (08:31)
[2019-05-06] MEDS: ATORVASTATIN 40 MG TAB PO SCH (08:31)
[2019-05-06] MEDS: ALLOPURINOL 100 MG TAB PO SCH (08:31)
[2019-05-06] MEDS: METOPROLOL TARTRATE 25 MG TAB PO SCH ×2 (08:31→20:09)
[2019-05-06] MEDS: HEPARIN SODIUM,PORCINE 5,000 UNIT/ML 1 ML VIAL SQ SCH ×2 (08:32→20:14)
--- NOTE | 2019-05-06 08:46 | XR ---
EXAMINATION TYPE: XR chest 1V portable DATE OF EXAM: 05/06/2019 COMPARISON: Prior chest x-ray dated 05/05/2019 HISTORY: Shortness of breath TECHNIQUE: Single frontal view of the chest is obtained. FINDINGS: Patient is post median sternotomy and rotated. Heart size may be accentuated by rotation. There are overlying cardiac leads. No evident pneumothorax or pleural effusion. Aorta is dense. Right -sided rib fracture is healed. Some mild pleural thickening noted bilaterally. Pulmonary vascularity and burak not significantly changed. IMPRESSION: Nonspecific findings. No acute abnormalities evident.
[2019-05-06] MEDS: BUDESONIDE 0.5 MG/2 ML NEBU INHALATION SCH ×2 (09:34→19:50)
[2019-05-06] MEDS: IPRATROPIUM-ALBUTEROL 3 ML NEB INHALATION SCH ×4 (09:35→19:50)
[2019-05-06 10:06] LABS: Erythrocyte Sedimentation Rate 107 mm/hr (0-15)
[2019-05-06] MEDS ORDERED: RX INFO: IV CONTRAST WAS GIVEN 1 EACH MISC MISCELLANE PRN (10:43)
[2019-05-06] MEDS ORDERED: HALOPERIDOL LACTATE 5 MG/ML 1 ML VIAL IVP PRN (10:45)
--- NOTE | 2019-05-06 11:02 | P.PN ---
Subjective Progress Note Date: 05/06/19 This is a pleasant 68-year-old male past medical history significant for valvular heart disease status post bioprosthetic aortic valve replacement in 2014, peripheral vascular disease status post aortic endarterectomy 2014, diabetes mellitus, hypertension and dyslipidemia. He admits to daily alcohol intake. 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 We have been asked to see in consultation for elevated troponin. He initially presented to the emergency department with symptoms of shortness of breath, cough and fall. He is unsure. It corresponding loss of consciousness. He states that he lost his balance falling on the left side of his body. He was noted to be febrile on admission with a temperature of 101.7. The patient states that he was sick since March 2019. Back then he was in [place]. On and off he was having fever. He was seen in [place] emergency department and he was given treatment and the exact treatment is not known to us at this point in time. The patient himself is a very poor historian. I think is lethargic and somewhat encephalopathic and is unable to volunteer detailed history. He came in to the hospital regarding these ongoing problems. The hospital, the patient was found to have a white cell count of 10.8. His initial lactic acid level was 3 and it dropped down to 1.0. Troponin was slightly positive at 0.657. ProBNP level was 4860. CT angiogram of the chest was done and was negative for pulmonary embolism. There was a soft tissue collection superior aspect of the left sternoclavicular joint at the level of the third and had with some tissue thickening and there is involvement of the sternum and there is also recommended the undisplaced fracture of the left clavicle. On examination, the patient is sore in the involved area without any significant erythema or warmth. For now he is on examination of Rocephin and Zithromax. He does have a cardiac murmur. He has a bioprosthetic aortic valve that was placed in 2014. On today's evaluation the patient is being seen in follow-up on 05/05/2019. The patient remains on a VATS with a tidal volume of 550. His current meds as the patient is at 10.6. He is pulling approximately 500 mL of tidal volume while being on this current moles. Overnight the patient became more restless and agitated. He apparently drinks and he is enjoying for around a week or 2 and he became confused. He was placed on the CIWA protocol and the patient was given Ativan where he received a total of 1.5 mg of Ativan. He remains on broad- spectrum antibiotics. He has been on a combination of Unasyn and vancomycin. Protocol troponin level is elevated. He was supposed to have a aspiration of the chest wall abscess/collection by interventional radiology. He was still seeking a consent from the significant other. Interventional radiology supposed to undergo this drainage of the possible chest wall abscess today once consent is obtained. On 05/06/2019 patient is seen in follow-up in intensive care unit, he is more arousable today, but remains confused, still somnolent, but opens eyes, and answers questions, but inattentive. Positive CAM ICU score. Off BiPAP support currently, he is on 2 L of oxygen and the pulse ox of 99 200%, he is afebrile, in sinus mechanism with a rate of 76, blood pressures 101/69, no vasoactive drips, maintenance IV fluids 0.9 normal saline at a rate of 100, patient is getting thiamine replacement and MVI replacement at a rate of 50 ML per hour. Patient has enterococcus D bacteremia on 2 separate blood cultures, follow blood cultures are negative thus far, he is on a culmination of Unasyn and vancomycin for antibiotics. Urinalysis without signs of infection, no significant cough or congestion, lung sounds reveal diminished breath sounds with mild wheezing. Today's labs reviewed, showing white blood cell count of 12.5, hemoglobin of 10.4, serum sodium 1:30, potassium is 4.2, CO2 is 20, BUN of 22 creatinine 0.59. Patient is producing adequate urine output, and the order of 100-200 ML per hour. Transthoracic echocardiogram did not show evidence of vegetation and showed adequately functioning bioprosthetic aortic valve. Yesterday patient underwent ultrasound-guided needle aspiration biopsy of the left sternoclavicular mass however there was only of droplet of blood aspirated. Cardiology is following, and will be requested to perform transesophageal echocardiogram to rule out possibility of endocarditis. Objective - Vital Signs Vital signs: Vital Signs Temp 97.4 F L 05/06/19 08:00 Pulse 88 05/06/19 10:00 Resp 25 H 05/06/19 10:00 BP 101/61 05/06/19 10:00 Pulse Ox 99 05/06/19 10:00 Intake & Output 05/05/19 05/06/19 05/06/19 18:59 06:59 18:59 Intake Total 362.125 8002.317 1200 Output Total 1405 620 Balance 133.113 706.317 580 Weight 104.5 kg 94.6 kg Intake: IV 1980 720 0.9% NaCl with KCl 20 Meq 550 200 /l 1,000 ml @ 50 mls/hr IV .[id number] DELISA with Mvi, Adult No.4 with Vit K 10 ml with Thiamine 100 mg with Folic Acid 1 mg Rx#: [id number] Sodium Chloride 0.9% 1, 1430 520 000 ml @ 130 mls/hr IV . Q7H42M [facility] Rx#:[id number] Intake, IV Titration 13.113 131.317 Amount Heparin Sod,Pork in 0.45% 131.317 NaCl 25,000 unit In 0.45 % NaCl 1 250ml.bag @ 12 UNITS/KG/HR 6.804 mls/hr IV .Q24H [facility] Rx#: [id number] Insulin Regular 100 unit 13.113 In Sodium Chloride 0.9% 100 ml @ Titrate IV .Q0M [facility] Rx#:[id number] Oral 120 480 Output: Urine 1405 620 Other: Voiding Method Indwelling Catheter Indwelling Catheter Indwelling Catheter # Voids 0 # Bowel Movements 0 - Exam GENERAL EXAM: Somnolent, a pleasant 68-year-old white male, arousable to verbal stimuli, but drifts back to sleep, inattentive, on room air pulse ox is 98%, at times slightly restless but not agitated comfortable in no apparent distress. HEAD: Normocephalic/atraumatic. EYES: Normal reaction of pupils, equal size. Conjunctiva pink, sclera white. NOSE: Clear with pink turbinates. THROAT: No erythema or exudates. NECK: No masses, no JVD, no thyroid enlargement, no adenopathy. CHEST: No chest wall deformity. Symmetrical expansion. Tenderness at the left sternoclavicular junction at the site of the attempted needle aspiration of the sternal abscess LUNGS: Equal air entry with no crackles, rhonchi or dullness. Mild wheezing noted CVS: Regular rate and rhythm, normal S1 and S2, no gallops, no murmurs, no rubs ABDOMEN: Soft, nontender. No hepatosplenomegaly, normal bowel sounds, no guard ing or rigidity. EXTREMITIES: No clubbing, no edema, no cyanosis, 2+ pulses and upper and lower extremities. MUSCULOSKELETAL: Muscle strength and tone normal. SPINE: No scoliosis or deformity SKIN: No rashes CENTRAL NERVOUS SYSTEM: Somnolent, arousable, just back to sleep oriented -1. No focal deficits, tone is normal in all 4 extremities. - Labs CBC & Chem 7: 05/06/19 05:37 05/06/19 05:37 Labs: Abnormal Lab Results - Last 24 Hours (Table) 05/05/19 05/05/19 05/05/19 Range/Units 08:46 08:46 11:51 WBC (3.8-10.6) k/uL RBC (4.30-5.90) m/uL Hgb (13.0-17.5) gm/dL Hct (39.0-53.0) % Plt Count 94 L (150-450) k/uL Neutrophils # (1.3-7.7) k/uL Neutrophils # (Manual) 8.70 H (1.3-7.7) k/uL Lymphocytes # (1.0-4.8) k/uL ESR (0-15) mm/hr ABG pO2 (83-108) mmHg ABG O2 Saturation (94-97) % Sodium 129 L (137-145) mmol/L Carbon Dioxide 21 L (22-30) mmol/L BUN 40 H (9-20) mg/dL Creatinine (0.66-1.25) mg/dL Glucose 110 H (74-99) mg/dL POC Glucose (mg/dL) 127 H (75-99) mg/dL Calcium 7.5 L (8.4-10.2) mg/dL Troponin I (0.000-0.034) ng/mL C-Reactive Protein 201.6 H (<10.0) mg/L 05/05/19 05/05/19 05/05/19 Range/Units 14:04 14:18 15:16 WBC (3.8-10.6) k/uL RBC (4.30-5.90) m/uL Hgb (13.0-17.5) gm/dL Hct (39.0-53.0) % Plt Count (150-450) k/uL Neutrophils # (1.3-7.7) k/uL Neutrophils # (Manual) (1.3-7.7) k/uL Lymphocytes # (1.0-4.8) k/uL ESR (0-15) mm/hr ABG pO2 119 H (83-108) mmHg ABG O2 Saturation 98.7 H (94-97) % Sodium (137-145) mmol/L Carbon Dioxide (22-30) mmol/L BUN (9-20) mg/dL Creatinine (0.66-1.25) mg/dL Glucose (74-99) mg/dL POC Glucose (mg/dL) 130 H (75-99) mg/dL Calcium (8.4-10.2) mg/dL Troponin I 0.526 H* (0.000-0.034) ng/mL C-Reactive Protein (<10.0) mg/L 05/05/19 05/05/19 05/05/19 Range/Units 16:53 19:53 20:28 WBC (3.8-10.6) k/uL RBC (4.30-5.90) m/uL Hgb (13.0-17.5) gm/dL Hct (39.0-53.0) % Plt Count (150-450) k/uL Neutrophils # (1.3-7.7) k/uL Neutrophils # (Manual) (1.3-7.7) k/uL Lymphocytes # (1.0-4.8) k/uL ESR (0-15) mm/hr ABG pO2 (83-108) mmHg ABG O2 Saturation (94-97) % Sodium (137-145) mmol/L Carbon Dioxide (22-30) mmol/L BUN (9-20) mg/dL Creatinine (0.66-1.25) mg/dL Glucose (74-99) mg/dL POC Glucose (mg/dL) 133 H 194 H (75-99) mg/dL Calcium (8.4-10.2) mg/dL Troponin I 0.551 H* (0.000-0.034) ng/mL C-Reactive Protein (<10.0) mg/L 05/06/19 05/06/19 05/06/19 Range/Units 05:37 05:37 05:41 WBC 12.5 H (3.8-10.6) k/uL RBC 3.16 L (4.30-5.90) m/uL Hgb 10.4 L (13.0-17.5) gm/dL Hct 31.0 L (39.0-53.0) % Plt Count 82 L (150-450) k/uL Neutrophils # 10.9 H (1.3-7.7) k/uL Neutrophils # (Manual) (1.3-7.7) k/uL Lymphocytes # 0.8 L (1.0-4.8) k/uL ESR 107 H (0-15) mm/hr ABG pO2 (83-108) mmHg ABG O2 Saturation (94-97) % Sodium 130 L (137-145) mmol/L Carbon Dioxide 20 L (22-30) mmol/L BUN 22 H (9-20) mg/dL Creatinine 0.59 L (0.66-1.25) mg/dL Glucose 142 H (74-99) mg/dL POC Glucose (mg/dL) 151 H (75-99) mg/dL Calcium 7.4 L (8.4-10.2) mg/dL Troponin I (0.000-0.034) ng/mL C-Reactive Protein 190.3 H (<10.0) mg/L Microbiology - Last 24 Hours (Table) 05/05/19 15:50 Gram Stain - Preliminary Other - Other Wound Culture - Preliminary 05/05/19 11:56 Blood Culture - Final Blood 05/04/19 04:40 Blood Culture Gram Stain - Preliminary Blood Blood Culture - Preliminary Group D Enterococcus 05/04/19 17:20 Blood Culture Gram Stain - Preliminary Blood Blood Culture - Preliminary Group D Enterococcus 05/04/19 17:35 Blood Culture Gram Stain - Preliminary Blood 05/04/19 17:20 Blood Culture - Final Blood 05/04/19 17:35 Blood Culture - Final Blood Assessment and Plan Plan: Assessment: 1 enterococcus D bacteremia, with possibility of septic endocarditis 2 febrile illness , subacute with ongoing episodes of fever with a temperature of 102.1. Currently afebrile. Obviously this raises concern for underlying sepsis. No evidence of pneumonia. No obvious source of infection. However, one area of concern is a soft tissue density that is present over the sternum as stated on the CAT scan. This area is present along the left sternoclavicular joint measuring 5 x 5.3 cm in size. Consider underlying abscess. Underlying infective endocarditis cannot be completely excluded. The patient has a cardiac murmur with a bioprosthetic aortic valve. No open wounds or sores. On today's evaluation of 05/05/2019 the patient is afebrile. His last temperature spike was yesterday. Blood cultures of been negative. The plan is to proceed with a aspiration of the chest wall abscess. The patient is currently on a combination of Unasyn and vancomycin. Chronic calcitonin level is elevated. This is suggestive of an underlying bacterial infection. 3 mild lactic acidosis, improved 4 fever 5 hyponatremia, likely acute, and his sodium level is improving is up to 129. The patient is on IV fluids and currently receiving, normal saline at the rate of 130 mL an hour 6 aortic valve replacement/bioprosthetic aortic valve in 2014 7 lethargy and diminished level of consciousness secondary to above, possibly secondary to metabolic encephalopathy and possibility of septic emboliisms. Ativan has been discontinued, MRI of the brain is pending 8 diabetes mellitus type 2 9 hypertension 10 hyperlipidemia 11 gout 12 COPD 13 troponin leak likely secondary to above currently on IV heparin 14 Peripheral vascular disease 15 history of alcoholism 16 Clavicular fracture secondary to fall Plan: Continue current antibiotics, in view of alteration of mentation and metabolic encephalopathy we'll discontinue Ativan, may use Haldol as needed, we'll proceed with MRI of the brain with contrast to rule out possibility of septic emboli to the brain, we spoke to cardiology about transesophageal echocardiogram to rule out septic endocarditis, and the plan is to proceed with LINDSAY tomorrow. Clear liquid diet, close supervision maintain aspiration precaution. GI and DVT prophylaxis. Follow blood cultures have shown no growth thus far. I performed a history & physical examination of the patient and discussed their management with my nurse practitioner, Monica Davalos. I reviewed the nurse practitioner's note and agree with the documented findings and plan of care. Lung sounds are positive for mild wheezes throughout the lung braden. The findings and the impression was discussed with the patient. I attest to the documentation by the nurse practitioner. Time with Patient: Less than 30
[2019-05-06 12:06] LABS: Glucose,Whole Blood 186 mg/dL (75-99)
--- NOTE | 2019-05-06 15:14 | PN ---
PROGRESS NOTE Mr. Espinoza is a 68-year-old male with a status post aortic valve replacement, who presented to the emergency room with change in mental status. He was febrile and there was evidence of positive blood cultures. He underwent cyst aspiration ultrasound yesterday. He is awake, confused at time. Denying any chest pain. Denies any dizziness, palpitation. He denies any nausea. Hemodynamically stable. His blood culture positive for enterococcus bacteremia. He continues to be at this time on aspirin once a day, Lipitor 40 mg daily, Lasix 20 mg daily, insulin, lisinopril 10 mg daily, metoprolol tartrate 25 mg twice a day in addition to his antibiotics. PHYSICAL EXAMINATION: Blood pressure if 112/90 with a heart rate in the 80s. LUNGS: Clear. HEART: Regular rate and rhythm, S1, S2. No S3 with systolic murmur, no diastolic murmur, no rub. ABDOMEN: Soft, nontender. Positive bowel sounds, no organomegaly. EXTREMITIES: No edema. LAB DATA: Chest x-ray shows no acute changes. His white blood cell 12.5, hemoglobin 10.4. BUN and creatinine 22 and 0.59. His C-reactive protein is 190.3. IMPRESSION: 1. Bacteremia, source unclear. 2. Status post aortic valve replacement. 3. Change in mental status, could be related to sepsis. 4. History of diabetes. 5. Hypertension. 6. Hyperlipidemia. 7. Mild troponin elevation most likely related to his infectious process. RECOMMENDATION: From the cardiac standpoint, will proceed with transesophageal echocardiogram to further assess his status and guide his treatment. The procedure will be done tomorrow by Dr. Langford. MMMIGUELL / NACHO: [id number] /
--- NOTE | 2019-05-06 15:16 | MR ---
EXAMINATION TYPE: MR brain wo/w con DATE OF EXAM: 05/06/2019 COMPARISON: NONE HISTORY: Mental status changes TECHNIQUE: Multiplanar, multisequence images of the brain and brainstem is performed without and with IV contras t, utilizing 9.5 mL intravenous Gadavist . FINDINGS: Diffusion weighted images are abnormal. There are numerous foci of subcortical and deep whi te matter restricted diffusion as well as numerous foci of T2 shine through. Numerous punctate foci a re seen in the bilateral cerebellar hemispheres, occipital lobes, left regi and midbrain, right exter nal capsule, right caudate nucleus, right posterior lateral occipital lobe, bilateral chen radiata, left parietal and occipital lobe, right posterior parietal lobe, deep white matter of the right post erior frontal lobe and occipital lobe, and near the vertex in the right frontal and left parietal lob es. The largest is linear in the left midbrain measuring 1.5 cm. Another large linear area seen in th e left periventricular white matter measuring 1.3 cm. The rest remain subcentimeter. These are associ ated with T2/FLAIR hyperintensities in the white matter. FLAIR imaging is somewhat suboptimal. There is no extra-axial fluid collection or significant white matter signal abnormality. The ventric ular system and cisternal spaces are normal in size and appearance. The brain volume is age appropri ate. Midline structures demonstrate normal morphology. The craniocervical junction appears within normal limits. Motion artifact limits post contrast images. Post contrast images demonstrate no gross eviden ce of abnormal enhancement. The dural venous sinuses appear patent. The visualized sinuses demonstrat e scant mucosal thickening in the ethmoid and right maxillary sinus. Remaining paranasal sinuses are well aerated. Partial opacification of the bilateral mastoid air cells. IMPRESSION: 1. Numerous bilateral acute and subacute lacunar infarcts in both the supratentorial and infratentori al white matter therefore suspicion is for embolic disease. 2. Motion artifact limits post contrast imaging. No gross evidence of abnormal intracranial enhanceme nt. Suboptimal visualization of enhancement of the middle cerebral arteries. MRA is recommended to ev aluate for stenosis. 3. Partial opacification of the bilateral mastoid air cells. Correlate clinically for mastoiditis. A Dixon level critical message alert has been initiated for Robbie Gardiner DO via the [facility] Critical Results System on 05/06/2019 3:13 PM. This message alert has been sent to Robbie Abdifatah, DO via the preferences provided by the clinician for the receipt of Radiology Critical Findings. Message ID [id number].
--- NOTE | 2019-05-06 16:17 | P.PN ---
Subjective Progress Note Date: 05/06/19 The pleasant 68-year-old white male was admitted for multiple medical problems. He's currently on BiPAP maintaining saturations currently under investigation for acute metabolic encephalopathy falls and comminuted fracture of his clavicle forming an abscess-like mass. Today he supposed to undergo drainage of the left clavicle 5 cm area of concern. 05/06/2019 yesterday underwent ultrasound guided needle biopsy of left clavicle mass with only a droplet sanguinous drainage aspirated . Cytology pend ing.currently off BiPAP, maintaining O2 sats in the high 90s on 2 L nasal cannula. Telemetry sinus rhythm. Maintained on CIWA protocol, banana bag. Afebrile, WBC 12.5, blood cultures 2 reporting enterococcus D bacteremia with follow-up preliminary blood cultures negative. Continues on vancomycin, Unasyn. Creatinine 0.59. Sodium 1:30. CRP elevated, 190.3. Brain MRI pending. Denies chest pain, palpitations or shortness of breath. Objective - Vital Signs Vital signs: Vital Signs Temp 97.6 F 05/06/19 12:00 Pulse 83 05/06/19 14:00 Resp 22 05/06/19 14:00 BP 112/95 05/06/19 14:00 Pulse Ox 98 05/06/19 14:00 Intake & Output 05/05/19 05/06/19 05/06/19 18:59 06:59 18:59 Intake Total 761.628 3739.317 2915 Output Total 1405 1495 Balance 133.113 278.623 0805 Weight 104.5 kg 94.6 kg Intake: IV 1979 147 0.9% NaCl with KCl 20 Meq 550 375 /l 1,000 ml @ 50 mls/hr IV .[id number] DELIAS with Mvi, Adult No.4 with Vit K 10 ml with Thiamine 100 mg with Folic Acid 1 mg Rx#: [id number] Ampicillin-Sulbactam 3 gm 100 In Sodium Chloride 0.9% 100 ml @ 200 mls/hr IVPB Q6H DELISA Rx#:[id number] Sodium Chloride 0.9% 1, 1430 750 000 ml @ 50 mls/hr IV . Q20H DELISA Rx#:[id number] Vancomycin 1,500 mg In 250 Sodium Chloride 0.9% 250 ml @ 125 mls/hr IVPB Q12H DELISA Rx#:[id number] Intake, IV Titration 13.113 131.317 Amount Heparin Sod,Pork in 0.45% 131.317 NaCl 25,000 unit In 0.45 % NaCl 1 250ml.bag @ 12 UNITS/KG/HR 6.804 mls/hr IV .Q24H DELISA Rx#: [id number] Insulin Regular 100 unit 13.113 In Sodium Chloride 0.9% 100 ml @ Titrate IV .Q0M DELISA Rx#:[id number] Oral 120 1440 Output: Urine 1405 1495 Other: Voiding Method Indwelling Catheter Indwelling Catheter Indwelling Catheter # Voids 0 # Bowel Movements 0 1 - Exam GENERAL: Sitting up in bed, no acute distress alert and oriented 1, pleasantly confused HEENT: Head is atraumatic, normocephalic. Pupils are equal, round, and reactive to light. Sclerae anicteric. Conjunctivae are clear. Mucus membranes of the mouth are moist. Neck is supple. RESPIRATORY: Decreased breath sounds to auscultation. Mild expiratory wheezing CARDIOVASCULAR: Regular rate and rhythm. Positive for systolic murmur auscultated. GASTROINTESTINAL: No distention noted. Abdomen soft and round. Normal active bowel sounds auscultated x 4 quadrants. No pain or tenderness noted upon palpation. INTEGUMENTARY: No cyanosis. No jaundice. No rashes noted. No cellulitis noted. EXTREMITIES: 2+ peripheral pulses. Left upper sternal clavicular area tenderness noted.. No calf tenderness noted. NEUROLOGIC: Confusion and lack of appropriate answering commands. A & O X 1. PSYCHIATRIC: Confused and lethargic during our examination. Appropriate affect. Impaired judgement and insight. Microbiology 05/05/19 11:56 Blood Blood Culture Gram Stain - Preliminary 05/05/19 15:50 Other - Other Gram Stain - Preliminary 05/05/19 15:50 Other - Other Wound Culture - Preliminary 05/05/19 11:56 Blood Blood Culture - Final 05/04/19 04:40 Blood Blood Culture Gram Stain - Preliminary 05/04/19 04:40 Blood Blood Culture - Preliminary Group D Enterococcus 05/04/19 17:20 Blood Blood Culture Gram Stain - Preliminary 05/04/19 17:20 Blood Blood Culture - Preliminary Group D Enterococcus 05/04/19 17:35 Blood Blood Culture Gram Stain - Preliminary 05/04/19 17:20 Blood Blood Culture - Final 05/04/19 17:35 Blood Blood Culture - Final 05/04/19 04:40 Blood Blood Culture - Final - Labs CBC & Chem 7: 05/06/19 05:37 05/06/19 05:37 Labs: Abnormal Lab Results - Last 24 Hours (Table) 05/05/19 05/05/19 05/05/19 Range/Units 16:53 19:53 20:28 WBC (3.8-10.6) k/uL RBC (4.30-5.90) m/uL Hgb (13.0-17.5) gm/dL Hct (39.0-53.0) % Plt Count (150-450) k/uL Neutrophils # (1.3-7.7) k/uL Lymphocytes # (1.0-4.8) k/uL ESR (0-15) mm/hr Sodium (137-145) mmol/L Carbon Dioxide (22-30) mmol/L BUN (9-20) mg/dL Creatinine (0.66-1.25) mg/dL Glucose (74-99) mg/dL POC Glucose (mg/dL) 133 H 194 H (75-99) mg/dL Calcium (8.4-10.2) mg/dL Troponin I 0.551 H* (0.000-0.034) ng/mL C-Reactive Protein (<10.0) mg/L 05/06/19 05/06/19 05/06/19 Range/Units 05:37 05:37 05:41 WBC 12.5 H (3.8-10.6) k/uL RBC 3.16 L (4.30-5.90) m/uL Hgb 10.4 L (13.0-17.5) gm/dL Hct 31.0 L (39.0-53.0) % Plt Count 82 L (150-450) k/uL Neutrophils # 10.9 H (1.3-7.7) k/uL Lymphocytes # 0.8 L (1.0-4.8) k/uL ESR 107 H (0-15) mm/hr Sodium 130 L (137-145) mmol/L Carbon Dioxide 20 L (22-30) mmol/L BUN 22 H (9-20) mg/dL Creatinine 0.59 L (0.66-1.25) mg/dL Glucose 142 H (74-99) mg/dL POC Glucose (mg/dL) 151 H (75-99) mg/dL Calcium 7.4 L (8.4-10.2) mg/dL Troponin I (0.000-0.034) ng/mL C-Reactive Protein 190.3 H (<10.0) mg/L 05/06/19 Range/Units 12:03 WBC (3.8-10.6) k/uL RBC (4.30-5.90) m/uL Hgb (13.0-17.5) gm/dL Hct (39.0-53.0) % Plt Count (150-450) k/uL Neutrophils # (1.3-7.7) k/uL Lymphocytes # (1.0-4.8) k/uL ESR (0-15) mm/hr Sodium (137-145) mmol/L Carbon Dioxide (22-30) mmol/L BUN (9-20) mg/dL Creatinine (0.66-1.25) mg/dL Glucose (74-99) mg/dL POC Glucose (mg/dL) 186 H (75-99) mg/dL Calcium (8.4-10.2) mg/dL Troponin I (0.000-0.034) ng/mL C-Reactive Protein (<10.0) mg/L Microbiology - Last 24 Hours (Table) 05/05/19 11:56 Blood Culture Gram Stain - Preliminary Blood 05/05/19 15:50 Gram Stain - Preliminary Other - Other Wound Culture - Preliminary 05/05/19 11:56 Blood Culture - Final Blood 05/04/19 04:40 Blood Culture Gram Stain - Preliminary Blood Blood Culture - Preliminary Group D Enterococcus 05/04/19 17:20 Blood Culture Gram Stain - Preliminary Blood Blood Culture - Preliminary Group D Enterococcus 05/04/19 17:35 Blood Culture Gram Stain - Preliminary Blood Assessment and Plan Assessment: (1) Chest wall abscess, status post aspiration, cytology pending Current Visit: Yes Status: Acute Code(s): L02.213 - CUTANEOUS ABSCESS OF CHEST WALL SNOMED Code(s): 01160575 -Enterococcus D Bacteremia, etiology unclear, LINDSAY pending, rule out septic endocarditis -Acute metabolic encephalopathy, etiology unclear (2) Clavicle fracture Current Visit: Yes Status: Acute Code(s): S42.009A - FRACTURE OF UNSP PART OF UNSP CLAVICLE, INIT FOR CLOS FX SNOMED Code(s): 58097174 (3) Dyspnea Current Visit: Yes Status: Acute Code(s): R06.00 - DYSPNEA, UNSPECIFIED SNOMED Code(s): 093024248 (4) Sepsis Current Visit: Yes Status: Acute Code(s): A41.9 - SEPSIS, UNSPECIFIED ORGANISM SNOMED Code(s): 07236121 (5) history of Aortic valve replaced, bioprosthetic Current Visit: No Status: Acute Code(s): Z95.2 - PRESENCE OF PROSTHETIC HEART VALVE SNOMED Code(s): 6958701022678 (6) Diabetes type 2, controlled Current Visit: Yes Status: Acute Code(s): E11.9 - TYPE 2 DIABETES MELLITUS WITHOUT COMPLICATIONS SNOMED Code(s): 88752760 (7) Elevated troponin level Current Visit: Yes Status: Acute Code(s): R79.89 - OTHER SPECIFIED ABNORMAL FINDINGS OF BLOOD CHEMISTRY SNOMED Code(s): 244541644 (8) Respiratory failure status post BiPAP Current Visit: Yes Status: Acute Code(s): J96.90 - RESPIRATORY FAILURE, UNS P, UNSP W HYPOXIA OR HYPERCAPNIA SNOMED Code(s): 001840700 -Hyponatremia -EtOH abuse, on CIWA protocol Plan: Continue on current medication regime ,monitoring and symptomatic treatment. LINDSAY pending. MRI pending. Cultures pending, maintain IV antibiotics. Banana bag daily. Continue on CIWA protocol. Prognosis guarded given multiple complex medical issues. The impression and plan of care has been dictated as directed. : I performed a history and examination of this patient, discussed the same with the dictator. I agree with the dictator's note ,documented as a scribe. Any additional findings or plans will be noted.
[2019-05-06] MEDS: 0.9% NACL WITH KCL 20 MEQ/L 1,000 ML with MVI, ADULT NO.4 WITH VIT K 10 ML, THIAMINE 10... IV SCH ×4 (17:09)
[2019-05-06 17:22] LABS: Glucose,Whole Blood 150 mg/dL (75-99)
[2019-05-06 19:56] LABS: Glucose,Whole Blood 194 mg/dL (75-99)
[2019-05-06] MEDS: MONTELUKAST 10 MG TAB PO SCH (20:09)
[2019-05-06] MEDS: LISINOPRIL 10 MG TAB PO SCH (20:09)
--- NOTE | 2019-05-06 23:37 | PN ---
PROGRESS NOTE DATE OF SERVICE: 05/06/2019 REASON FOR FOLLOWUP: Clavicle abscess, osteomyelitis and Enterococcus bacteremia. INTERVAL HISTORY: The patient is currently afebrile. He has been breathing comfortably. He is hemodynamically stable. Not requiring any pressor support. Respiratory distress has improved. Currently on the BiPAP. Denies having any chest pain. No nausea, vomiting. No abdominal pain or diarrhea. PHYSICAL EXAMINATION: Blood pressure is 113/65 with a pulse of 83, temperature 97.8. He is 99% on 2 L nasal cannula. General description is an elderly male lying in bed in no distress. Respiratory system: Unlabored breathing. Clear to auscultation anteriorly. Heart S1, S2. Regular rate and rhythm. ABDOMEN: Soft. No tenderness. LABS: Hemoglobin is 10.4, white count 12.5. BUN of 22. Creatinine 0.59. DIAGNOSTIC IMPRESSION AND PLAN: Patient with left clavicular osteomyelitis with an abscess. The patient did have evidence of group D Enterococcus bacteremia. The patient is status post ultrasound- guided drainage of the area. Cultures currently pending. We will schedule for tomorrow. Plan is to continue with his cefepime and vancomycin while waiting for the culture to finalize. Continue supportive care. MMODL / IJN: [id number] /
[2019-05-07] MEDS: AMPICILLIN-SULBACTAM 3 GM in SODIUM CHLORIDE 0.9% 100 ML IVPB SCH ×3 (01:21→12:37)
[2019-05-07] MEDS: HYDROcodone/APAP 5-325MG 1 EACH TAB PO PRN ×3 (03:35→14:33)
[2019-05-07 05:27] LABS: Basophils % (A) 0 %; Eosinophils # (A) 0.1 k/uL (0-0.7); Eosinophils % (A) 1 %; HGB 10.5 gm/dL (13.0-17.5); Lymphocytes # (A) 0.9 k/uL (1.0-4.8); Lymphocytes % (A) 9 %; MCHC 32.8 g/dL (31.0-37.0); MCV 97.5 fL (80.0-100.0); Mean Platelet Volume 9.3; Monocytes # (A) 0.3 k/uL (0-1.0); Monocytes % (A) 3 %; Neutrophils # (A) 8.5 k/uL (1.3-7.7); Neutrophils % (A) 83 %; RBC 3.29 m/uL (4.30-5.90); RDW 13.6 % (11.5-15.5); WBC 10.2 k/uL (3.8-10.6)
[2019-05-07 05:28] LABS: Platelet Count 91 k/uL (150-450)
[2019-05-07 05:41] LABS: African American GFR (CKD) >90 (>60 ml/min/1.73 sqM); Anion Gap 5 mmol/L; Blood Urea Nitrogen 15 mg/dL (9-20); Calcium 7.7 mg/dL (8.4-10.2); Carbon Dioxide 20 mmol/L (22-30); Chloride 107 mmol/L (98-107); Glucose 163 mg/dL (74-99); Non-African American GFR(CKD) >90 (>60 ml/min/1.73 sqM); Potassium 4.5 mmol/L (3.5-5.1); Sodium 132 mmol/L (137-145)
[2019-05-07 06:29] LABS: Glucose,Whole Blood 160 mg/dL (75-99)
[2019-05-07] MEDS: VANCOMYCIN 1,500 MG in SODIUM CHLORIDE 0.9% 250 ML IVPB SCH (06:31)
[2019-05-07] MEDS: INSULIN ASPART (NovoLOG) 100 UNIT/ML VIAL SQ SCH ×7 (06:31→21:07)
[2019-05-07] MEDS: BUDESONIDE 0.5 MG/2 ML NEBU INHALATION SCH ×2 (07:24→21:13)
[2019-05-07] MEDS: IPRATROPIUM-ALBUTEROL 3 ML NEB INHALATION SCH ×4 (07:24→21:13)
[2019-05-07] MEDS ORDERED: BENZOCAINE SPRAY 1 CAN TOPICAL PRN (08:08)
[2019-05-07] MEDS ORDERED: fentaNYL (PF) 50 MCG/ML 2 ML AMP IVP ONE (08:08)
[2019-05-07] MEDS ORDERED: MIDAZOLAM 2 MG/2 ML VIAL IV ONE (08:08)
[2019-05-07] MEDS: HEPARIN SODIUM,PORCINE 5,000 UNIT/ML 1 ML VIAL SQ SCH ×2 (08:27→20:32)
[2019-05-07] MEDS: PANTOPRAZOLE 40 MG/10 ML VIAL IVP SCH (08:27)
[2019-05-07] MEDS: ASPIRIN 81 MG PO SCH (08:28)
[2019-05-07] MEDS: LORATADINE 10 MG TAB PO SCH (08:28)
[2019-05-07] MEDS: ATORVASTATIN 40 MG TAB PO SCH (08:28)
[2019-05-07] MEDS: ALLOPURINOL 100 MG TAB PO SCH (08:28)
[2019-05-07] MEDS: MAGNESIUM OXIDE 400 MG TAB PO SCH (08:28)
[2019-05-07] MEDS: METOPROLOL TARTRATE 25 MG TAB PO SCH ×2 (08:28→20:32)
[2019-05-07] MEDS: FUROSEMIDE 20 MG TAB PO SCH (08:28)
--- NOTE | 2019-05-07 10:17 | PN ---
PROGRESS NOTE Mr. Espinoza is a 68-year-old male who presented with dyspnea and change in mental status. He is awake and continues to be confused at times. He denies any symptoms of chest discomfort. He had positive blood culture. He is in sinus mechanism. He has no arrhythmia. Hemodynamically, he is stable. He is requiring no pressors. He is afebrile and scheduled to undergo transesophageal echocardiogram today by Dr. Langford to rule out endocarditis. He underwent brain MRI that revealed evidence of bilateral acute and subacute lacunar infarcts suspicious of embolic phenomena that could represent septic embolization. He continues to be at this time on aspirin once a day, Lipitor 40 mg daily, Lasix 20 mg daily, lisinopril 15 mg daily, metoprolol tartrate 25 mg twice a day in addition to his antibiotics. PHYSICAL EXAMINATION: Blood pressure 123/60 with the heart rate in the 80s. LUNGS: No wheezes or rales. HEART: Regular rate and rhythm. S1, S2. No S3 with systolic murmur 2/6 at the base. No diastolic murmur. No rub. ABDOMEN: Soft, nontender. EXTREMITIES: No edema. LAB DATA: Lab data revealed BUN and creatinine 15 and 0.57, potassium 4.5, hemoglobin 10.5. IMPRESSION: 1. Bacteremia with change in mental status in a patient with aortic valve replacement, rule out endocarditis. 2. Enterococcus D bacteremia. 3. Status post aortic valve replacement. 4. Diabetes mellitus. 5. Hypertension. 6. Hyperlipidemia. 7. Prior history of alcoholism. RECOMMENDATION: We will proceed with the LINDSAY today. Continue the rest of his medical regimen and depending on the results of the LINDSAY further recommendation will be made. We will await the results of the biopsy that was done on the lesion in the clavicular area. MMODL / IJN: [id number] /
--- NOTE | 2019-05-07 10:25 | P.PN ---
Subjective Progress Note Date: 05/07/19 The pleasant 68-year-old white male was admitted for multiple medical problems. He's currently on BiPAP maintaining saturations currently under investigation for acute metabolic encephalopathy falls and comminuted fracture of his clavicle forming an abscess-like mass. Today he supposed to undergo drainage of the left clavicle 5 cm area of concern. 05/06/2019 yesterday underwent ultrasound guided needle biopsy of left clavicle mass with only a droplet sanguinous drainage aspirated . Cytology pend ing.currently off BiPAP, maintaining O2 sats in the high 90s on 2 L nasal cannula. Telemetry sinus rhythm. Maintained on CIWA protocol, banana bag. Afebrile, WBC 12.5, blood cultures 2 reporting enterococcus D bacteremia with follow-up preliminary blood cultures negative. Continues on vancomycin, Unasyn. Creatinine 0.59. Sodium 1:30. CRP elevated, 190.3. Brain MRI pending. Denies chest pain, palpitations or shortness of breath. 05/07/2019 mildly agitated/restless related to being NPO, scheduled for LINDSAY today. Required Haldol during the night. Continues on CIWA protocol. Significant other at bedside. Telemetry sinus rhythm. VSS. Afebrile, follow-up blood cultures reporting enterococcus group D. continues on antibiotics as per ID .Maintaining O2 sats in the 90s on 2 L nasal cannula. Hemoglobin 10.5, sodium improving, 1:32. 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 Objective - Vital Signs Vital signs: Vital Signs Temp 97.3 F L 05/07/19 04:00 Pulse 85 05/07/19 07:25 Resp 25 H 05/07/19 07:00 BP 123/68 05/07/19 07:00 Pulse Ox 98 05/07/19 07:00 Intake & Output 05/06/19 05/07/19 05/07/19 18:59 06:59 18:59 Intake Total 3390 1880 450 Output Total 2145 1460 110 Balance 1245 420 340 Weight 93.2 kg Intake: IV 1950 1200 450 0.9% NaCl with KCl 20 Meq 550 600 50 /l 1,000 ml @ 50 mls/hr IV .[id number] [facility] with Mvi, Adult No.4 with Vit K 10 ml with Thiamine 100 mg with Folic Acid 1 mg Rx#: [id number] Ampicillin-Sulbactam 3 gm 200 100 In Sodium Chloride 0.9% 100 ml @ 200 mls/hr IVPB Q6H [facility] Rx#:[id number] Sodium Chloride 0.9% 1, 950 600 50 000 ml @ 50 mls/hr IV . Q20H [facility] Rx#:[id number] Vancomycin 1,500 mg In 250 250 Sodium Chloride 0.9% 250 ml @ 125 mls/hr IVPB Q12H [facility] Rx#:[id number] Oral 1440 680 Output: Urine 2145 1460 110 Other: Voiding Method Indwelling Catheter Indwelling Catheter # Bowel Movements 1 - Exam GENERAL: Sitting up in bed, no acute distress alert and oriented 2,restless HEENT: Head is atraumatic, normocephalic. Pupils are equal, round, and reactive to light. Sclerae anicteric. Conjunctivae are clear. Mucus membranes of the mouth are dry. Neck is supple. RESPIRATORY: Decreased breath sounds to auscultation. CARDIOVASCULAR: Regular rate and rhythm. Positive for systolic murmur auscultated. GASTROINTESTINAL: No distention noted. Abdomen soft and round. Normal active bowel sounds auscultated x 4 quadrants. No pain or tenderness noted upon palpation. INTEGUMENTARY: No cyanosis. No jaundice. No rashes noted. No cellulitis noted. EXTREMITIES: 2+ peripheral pulses. Left upper sternal clavicular area tenderness noted.. No calf tenderness noted. NEUROLOGIC: Confusion and lack of appropriate answering commands. A & O X 1. PSYCHIATRIC: Confused and lethargic during our examination. Appropriate affect. Impaired judgement and insight. Microbiology 05/06/19 05:37 Blood Blood Culture Gram Stain - Preliminary 05/06/19 05:37 Blood Blood Culture - Preliminary Group D Enterococcus 05/04/19 17:20 Blood Blood Culture Gram Stain - Final 05/04/19 17:20 Blood Blood Culture - Final Enterococcus faecalis 05/04/19 17:35 Blood Blood Culture Gram Stain - Final 05/04/19 17:35 Blood Blood Culture - Final Enterococcus faecalis 05/04/19 04:40 Blood Blood Culture Gram Stain - Final 05/04/19 04:40 Blood Blood Culture - Final Enterococcus faecalis 05/05/19 11:56 Blood Blood Culture Gram Stain - Preliminary 05/05/19 11:56 Blood Blood Culture - Preliminary Group D Enterococcus 05/06/19 05:37 Blood Blood Culture - Final 05/05/19 15:50 Other - Other Gram Stain - Preliminary 05/05/19 15:50 Other - Other Wound Culture - Preliminary 05/05/19 11:56 Blood Blood Culture - Final 05/04/19 17:20 Blood Blood Culture - Final 05/04/19 17:35 Blood Blood Culture - Final 05/04/19 04:40 Blood Blood Culture - Final - Labs CBC & Chem 7: 05/07/19 05:15 05/07/19 05:15 Labs: Abnormal Lab Results - Last 24 Hours (Table) 05/06/19 05/06/19 05/06/19 Range/Units 05:37 12:03 17:21 RBC (4.30-5.90) m/uL Hgb (13.0-17.5) gm/dL Hct (39.0-53.0) % Plt Count (150-450) k/uL Neutrophils # (1.3-7.7) k/uL Lymphocytes # (1.0-4.8) k/uL ESR 107 H (0-15) mm/hr Sodium (137-145) mmol/L Carbon Dioxide (22-30) mmol/L Creatinine (0.66-1.25) mg/dL Glucose (74-99) mg/dL POC Glucose (mg/dL) 186 H 150 H (75-99) mg/dL Calcium (8.4-10.2) mg/dL 05/06/19 05/07/19 05/07/19 Range/Units 19:55 05:15 05:15 RBC 3.29 L (4.30-5.90) m/uL Hgb 10.5 L (13.0-17.5) gm/dL Hct 32.0 L (39.0-53.0) % Plt Count 91 L (150-450) k/uL Neutrophils # 8.5 H (1.3-7.7) k/uL Lymphocytes # 0.9 L (1.0-4.8) k/uL ESR (0-15) mm/hr Sodium 132 L (137-145) mmol/L Carbon Dioxide 20 L (22-30) mmol/L Creatinine 0.57 L (0.66-1.25) mg/dL Glucose 163 H (74-99) mg/dL POC Glucose (mg/dL) 194 H (75-99) mg/dL Calcium 7.7 L (8.4-10.2) mg/dL 05/07/19 Range/Units 06:28 RBC (4.30-5.90) m/uL Hgb (13.0-17.5) gm/dL Hct (39.0-53.0) % Plt Count (150-450) k/uL Neutrophils # (1.3-7.7) k/uL Lymphocytes # (1.0-4.8) k/uL ESR (0-15) mm/hr Sodium (137-145) mmol/L Carbon Dioxide (22-30) mmol/L Creatinine (0.66-1.25) mg/dL Glucose (74-99) mg/dL POC Glucose (mg/dL) 160 H (75-99) mg/dL Calcium (8.4-10.2) mg/dL Microbiology - Last 24 Hours (Table) 05/06/19 05:37 Blood Culture Gram Stain - Preliminary Blood 05/04/19 17:20 Blood Culture Gram Stain - Final Blood Blood Culture - Final Enterococcus faecalis 05/04/19 17:35 Blood Culture Gram Stain - Final Blood Blood Culture - Final Enterococcus faecalis 05/04/19 04:40 Blood Culture Gram Stain - Final Blood Blood Culture - Final Enterococcus faecalis 05/05/19 11:56 Blood Culture Gram Stain - Preliminary Blood Blood Culture - Preliminary Group D Enterococcus 05/06/19 05:37 Blood Culture - Final Blood 05/05/19 15:50 Gram Stain - Preliminary Other - Other Wound Culture - Preliminary 05/05/19 11:56 Blood Culture - Final Blood Assessment and Plan Assessment: (1) Chest wall abscess, status post aspiration, cytology pending Current Visit: Yes Status: Acute Code(s): L02.213 - CUTANEOUS ABSCESS OF CHEST WALL SNOMED Code(s): 79276178 -Enterococcus D Bacteremia, etiology unclear, LINDSAY pending, rule out septic endocarditis -Acute metabolic encephalopathy, etiology unclear (2) Clavicle fracture Current Visit: Yes Status: Acute Code(s): S42.009A - FRACTURE OF UNSP PART OF UNSP CLAVICLE, INIT FOR CLOS FX SNOMED Code(s): 98438020 (3) Dyspnea Current Visit: Yes Status: Acute Code(s): R06.00 - DYSPNEA, UNSPECIFIED SNOMED Code(s): 219766821 (4) Sepsis Current Visit: Yes Status: Acute Code(s): A41.9 - SEPSIS, UNSPECIFIED ORGANISM SNOMED Code(s): 79928349 (5) history of Aortic valve replaced, bioprosthetic Current Visit: No Status: Acute Code(s): Z95.2 - PRESENCE OF PROSTHETIC HEART VALVE SNOMED Code(s): 2863890352159 (6) Diabetes type 2, controlled Current Visit: Yes Status: Acute Code(s): E11.9 - TYPE 2 DIABETES MELLITUS WITHOUT COMPLICATIONS SNOMED Code(s): 91149568 (7) Elevated troponin level Current Visit: Yes Status: Acute Code(s): R79.89 - OTHER SPECIFIED ABNORMAL FINDINGS OF BLOOD CHEMISTRY SNOMED Code(s): 600000303 (8) Respiratory failure status post BiPAP Current Visit: Yes Status: Acute Code(s): J96.90 - RESPIRATORY FAILURE, UNSP, UNSP W HYPOXIA OR HYPERCAPNIA SNOMED Code(s): 533656781 -Hyponatremia -EtOH abuse, on CIWA protocol -Numerous bilateral acute and subacute lacunar infarcts in supratentorial and infratentorial white matter, suspicious for embolic disease. Plan: Continue on current medication regime ,monitoring and symptomatic tr eatment. LINDSAY pending. Neurology consulted r/t abn MRI, encephalopathy.IV antibiotics as per ID. Banana bag daily. Continue on CIWA protocol. Significant other at bedside, updated on plan of care; questions and concerns addressed. Prognosis guarded given multiple complex medical issues. The impression and plan of care has been dictated as directed. : I performed a history and examination of this patient, discussed the same with the dictator. I agree with the dictator's note ,documented as a scribe. Any additional findings or plans will be noted.
--- NOTE | 2019-05-07 11:22 | P.PN ---
Subjective Progress Note Date: 05/07/19 This is a pleasant 68-year-old male past medical history significant for valvular heart disease status post bioprosthetic aortic valve replacement in 2014, peripheral vascular disease status post aortic endarterectomy 2014, diabetes mellitus, hypertension and dyslipidemia. He admits to daily alcohol intake. He does not follow in the office with a bonding agent. We have been asked to see in consultation for elevated troponin. He initially presented to the emergency department with symptoms of shortness of breath, cough and fall. He is unsure. It corresponding loss of consciousness. He states that he lost his balance falling on the left side of his body. He was noted to be febrile on admission with a temperature of 101.7. The patient states that he was sick since March 2019. Back then he was in [place]. On and off he was having fever. He was seen in [place] emergency department and he was given treatment and the exact treatment is not known to us at this point in time. The patient himself is a very poor historian. I think is lethargic and somewhat encephalopathic and is unable to volunteer detailed history. He came in to the hospital regarding these ongoing problems. The hospital, the patient was found to have a white cell count of 10.8. His initial lactic acid level was 3 and it dropped down to 1.0. Troponin was slightly positive at 0.657. ProBNP level was 4860. CT angiogram of the chest was done and was negative for pulmonary embolism. There was a soft tissue collection superior aspect of the left sternoclavicular joint at the level of the third and had with some tissue thickening and there is involvement of the sternum and there is also recommended the undisplaced fracture of the left clavicle. On examination, the patient is sore in the involved area without any significant erythema or warmth. For now he is on examination of Rocephin and Zithromax. He does have a cardiac murmur. He has a bioprosthetic aortic valve that was placed in 2014. On today's evaluation the patient is being seen in follow-up on 05/05/2019. The patient remains on a VATS with a tidal volume of 550. His current meds as the patient is at 10.6. He is pulling approximately 500 mL of tidal volume while being on this current moles. Overnight the patient became more restless and agitated. He apparently drinks and he is enjoying for around a week or 2 and he became confused. He was placed on the CIWA protocol and the patient was given Ativan where he received a total of 1.5 mg of Ativan. He remains on broad- spectrum antibiotics. He has been on a combination of Unasyn and vancomycin. Protocol troponin level is elevated. He was supposed to have a aspiration of the chest wall abscess/collection by interventional radiology. He was still seeking a consent from the significant other. Interventional radiology supposed to undergo this drainage of the possible chest wall abscess today once consent is obtained. On 05/06/2019 patient is seen in follow-up in intensive care unit, he is more arousable today, but remains confused, still somnolent, but opens eyes, and answers questions, but inattentive. Positive CAM ICU score. Off BiPAP support currently, he is on 2 L of oxygen and the pulse ox of 99 200%, he is afebrile, in sinus mechanism with a rate of 76, blood pressures 101/69, no vasoactive drips, maintenance IV fluids 0.9 normal saline at a rate of 100, patient is getting thiamine replacement and MVI replacement at a rate of 50 ML per hour. Patient has enterococcus D bacteremia on 2 separate blood cultures, follow blood cultures are negative thus far, he is on a culmination of Unasyn and vancomycin for antibiotics. Urinalysis without signs of infection, no significant cough or congestion, lung sounds reveal diminished breath sounds with mild wheezing. Today's labs reviewed, showing white blood cell count of 12.5, hemoglobin of 10.4, serum sodium 1:30, potassium is 4.2, CO2 is 20, BUN of 22 creatinine 0.59. Patient is producing adequate urine output, and the order of 100-200 ML per hour. Transthoracic echocardiogram did not show evidence of vegetation and showed adequately functioning bioprosthetic aortic valve. Yesterday patient underwent ultrasound-guided needle aspiration biopsy of the left sternoclavicular mass however there was only of droplet of blood aspirated. Cardiology is following, and will be requested to perform transesophageal echocardiogram to rule out possibility of endocarditis. On 05/07/2019 patient seen in follow-up in the intensive care unit, this morning he had his transesophageal echocardiogram by Dr. Babar Kulkarni, and patient was found to have vegetation on his bioprosthetic aortic valve. 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 Blood cultures from 05/04/2019 positive for Enterococcus faecalis, 05/05/2019 were positive for group D enterococcus. Patient is currently on Unasyn and vancomycin. This morning he seen in the intensive care unit, she is lethargic, but arouses to verbal stimuli, he still under the effect of fentanyl and Versed given for the transesophageal echocardiogram. Hemodynamically patient stable, he is in sinus mechanism with a rate of 74 BPM, blood pressures 104/65, patient is on 2 L of oxygen with a pulse ox of 96%, lung sounds reveal diminished breath sounds bilaterally, some scattered crackles, no wheezes, Pierce catheter is in place and patient is producing adequate amount of urine, patient is on IV fluids in the form of MVI at a rate of 50 ML per hour, and 0.9 normal saline at a rate of 50 ML per hour, he is on clear liquid diet yesterday, today we can advance his diet as tolerated once the patient is more awake. Objective - Vital Signs Vital signs: Vital Signs Temp 98.4 F 05/07/19 08:00 Pulse 68 05/07/19 10:51 Resp 17 05/07/19 10:00 BP 132/68 05/07/19 10:00 Pulse Ox 97 05/07/19 10:00 Intake & Output 05/06/19 05/07/19 05/07/19 18:59 06:59 18:59 Intake Total 3390 1880 750 Output Total 2145 1460 371 Balance 1245 420 379 Weight 93.2 kg Intake: IV 1950 1200 750 0.9% NaCl with KCl 20 Meq 550 600 200 /l 1,000 ml @ 50 mls/hr IV .[id number] [facility] with Mvi, Adult No.4 with Vit K 10 ml with Thiamine 100 mg with Folic Acid 1 mg Rx#: [id number] Ampicillin-Sulbactam 3 gm 200 100 In Sodium Chloride 0.9% 100 ml @ 200 mls/hr IVPB Q6H [facility] Rx#:[id number] Sodium Chloride 0.9% 1, 950 600 200 000 ml @ 50 mls/hr IV . Q20H [facility] Rx#:[id number] Vancomycin 1,500 mg In 250 250 Sodium Chloride 0.9% 250 ml @ 125 mls/hr IVPB Q12H [facility] Rx#:[id number] Oral 1440 680 Output: Urine 2145 1460 371 Other: Voiding Method Indwelling Catheter Indwelling Catheter # Bowel Movements 1 - Exam GENERAL EXAM: Somnolent, a pleasant 68-year-old white male, arousable to verbal stimuli, sedated, recently returned from transesophageal echocardiogram, still on the effect of the sedation, with Versed and fentanyl on 2 L/m oxygen pulse ox is 98% HEAD: Normocephalic/atraumatic. EYES: Normal reaction of pupils, equal size. Conjunctiva pink, sclera white. NOSE: Clear with pink turbinates. THROAT: No erythema or exudates. NECK: No masses, no JVD, no thyroid enlargement, no adenopathy. CHEST: No chest wall deformity. Symmetrical expansion. Tenderness at the left sternoclavicular junction at the site of the attempted needle aspiration of the sternal abscess LUNGS: Equal air entry with no crackles, rhonchi or dullness. Mild wheezing noted CVS: Regular rate and rhythm, normal S1 and S2, no gallops, no murmurs, no rubs ABDOMEN: Soft, nontender. No hepatosplenomegaly, normal bowel sounds, no guarding or rigidity. EXTREMITIES: No clubbing, no edema, no cyanosis, 2+ pulses and upper and lower extremities. MUSCULOSKELETAL: Muscle strength and tone normal. SPINE: No scoliosis or deformity SKIN: No rashes CENTRAL NERVOUS SYSTEM: Somnolent, arousable, just back to sleep oriented -1. No focal deficits, tone is normal in all 4 extremities. - Labs CBC & Chem 7: 05/07/19 05:15 05/07/19 05:15 Labs: Abnormal Lab Results - Last 24 Hours (Table) 05/06/19 05/06/19 05/06/19 Range/Units 12:03 17:21 19:55 RBC (4.30-5.90) m/uL Hgb (13.0-17.5) gm/dL Hct (39.0-53.0) % Plt Count (150-450) k/uL Neutrophils # (1.3-7.7) k/uL Lymphocytes # (1.0-4.8) k/uL Sodium (137-145) mmol/L Carbon Dioxide (22-30) mmol/L Creatinine (0.66-1.25) mg/dL Glucose (74-99) mg/dL POC Glucose (mg/dL) 186 H 150 H 194 H (75-99) mg/dL Calcium (8.4-10.2) mg/dL 05/07/19 05/07/19 05/07/19 Range/Units 05:15 05:15 06:28 RBC 3.29 L (4.30-5.90) m/uL Hgb 10.5 L (13.0-17.5) gm/dL Hct 32.0 L (39.0-53.0) % Plt Count 91 L (150-450) k/uL Neutrophils # 8.5 H (1.3-7.7) k/uL Lymphocytes # 0.9 L (1.0-4.8) k/uL Sodium 132 L (137-145) mmol/L Carbon Dioxide 20 L (22-30) mmol/L Creatinine 0.57 L (0.66-1.25) mg/dL Glucose 163 H (74-99) mg/dL POC Glucose (mg/dL) 160 H (75-99) mg/dL Calcium 7.7 L (8.4-10.2) mg/dL Microbiology - Last 24 Hours (Table) 05/06/19 05:37 Blood Culture Gram Stain - Preliminary Blood Blood Culture - Preliminary Group D Enterococcus 05/04/19 17:20 Blood Culture Gram Stain - Final Blood Blood Culture - Final Enterococcus faecalis 05/04/19 17:35 Blood Culture Gram Stain - Final Blood Blood Culture - Final Enterococcus faecalis 05/04/19 04:40 Blood Culture Gram Stain - Final Blood Blood Culture - Final Enterococcus faecalis 05/05/19 11:56 Blood Culture Gram Stain - Preliminary Blood Blood Culture - Preliminary Group D Enterococcus 05/06/19 05:37 Blood Culture - Final Blood Assessment and Plan Plan: Assessment: 1 enterococcus D bacteremia and infective endocarditis, transesophageal echocardiogram showed vegetation on the bioprosthetic aortic valve 2 septic emboli to the brain, and secondary altered mentation 3 left sternoclavicular joint abscess, unsuccessful ultrasound-guided needle aspiration, with the possibility of sternal bone infection 4 mild lactic acidosis, improved 5 fever, improved 6 hyponatremia, likely acute, and his sodium level is improving is up to 129. The patient is on IV fluids and currently receiving, normal saline at the rate of 130 mL an hour 7 aortic valve replacement/bioprosthetic aortic valve in 2014 8 lethargy and diminished level of consciousness secondary to above, possibly secondary to metabolic encephalopathy and septic emboliisms. Ativan has been discontinued, MRI of the brain showed multiple areas of infarction suggestive of septic embolisms 9 diabetes mellitus type 2 10 hypertension 11 hyperlipidemia 12 gout 13 COPD 14 troponin leak likely secondary to above currently on IV heparin 15 Peripheral vascular disease 16 history of alcoholism 17 Clavicular fracture secondary to fall Plan: Continue current antibiotics per ID service recognitions, patient is on accommodation of Unasyn and vancomycin, MRI of the brain confirmed septic embolisms, and transesophageal echocardiogram confirmed vegetation on the bio prosthetic aortic valve. We'll consult CT surgery in regards to the left sterno clavicular infection and abscess and the possibility of sternal bone infection. Will advance diet as tolerated, increase activity as tolerated, patient's spouse was updated, patient will need at least 6 weeks course of antibiotics, will follow with ID service recommendations. Will await input from CT surgery, continue monitoring in the intensive care unit, continue safety precautions I performed a history & physical examination of the patient and discussed their management with my nurse practitioner, Monica Davalos. I reviewed the nurse practitioner's note and agree with the documented findings and plan of care. Lung sounds are positive for mild wheezes throughout the lung braden. The findings and the impression was discussed with the patient. I attest to the documentation by the nurse practitioner. Time with Patient: Less than 30
[2019-05-07 11:56] LABS: Glucose,Whole Blood 171 mg/dL (75-99)
--- NOTE | 2019-05-07 12:32 | ECHOT ---
TRANSESOPHAGEAL ECHOCARDIOGRAM INDICATION: Positive blood cultures, rule out infective endocarditis. PROCEDURE NOTE: After obtaining informed consent, transesophageal echocardiogram is performed in left lateral position using an Omni plane probe. Local and IV sedation were obtained using Xylocaine spray, intravenous Versed and fentanyl. Patient tolerated the procedure well without any obvious immediate complications. Patient received moderate conscious sedation. Total sedation time was 12 minutes. FINDINGS: 1. There is a bioprosthetic valve in aortic position. The left coronary cusp has a large echodense lesion attached to it, primarily on the aortic side. It is irregular, fixed, and consistent with a diagnosis of vegetation. The right coronary cusp also has small echodense lesions attached to it. There is no aortic regurgitation. There is no perivalvular abscess. There is no evidence of perivalvular regurgitation. Mitral valve shows stove mechanic calcification with moderate central mitral regurgitation with some restriction in leaflet mobility. 2. Tricuspid valve shows mild tricuspid regurgitation. 3. Left atrium appears enlarged. 4. Right atrium and right ventricle seen within normal limits. Left ventricle shows normal LV function. Aorta shows [id number] atherosclerotic changes. Left atrial appendage is free of thrombus. CONCLUSION: There is evidence of a vegetation attached to the prosthetic aortic valve and with positive blood cultures. 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 Patient's valve is stable. There is no aortic regurgitation. There is no perivalvular leak. MMODL / IJN: [id number] /
[2019-05-07] MEDS: 0.9% NACL WITH KCL 20 MEQ/L 1,000 ML with MVI, ADULT NO.4 WITH VIT K 10 ML, THIAMINE 10... IV SCH ×4 (12:37)
[2019-05-07] MEDS: SODIUM CHLORIDE 0.9% 1,000 ML IV SCH (12:37)
[2019-05-07] MEDS ORDERED: VANCOMYCIN TROUGH DUE 1 EACH MISC MISCELLANE ONE (13:00)
[2019-05-07] MEDS ORDERED: GENTAMICIN PER PHARMACY MISCELLANE SCH (13:15)
--- NOTE | 2019-05-07 13:56 | P.GSCN ---
History of Present Illness Consult date: 05/07/19 Reason for Consult: Sternal abscess, possible sternal infection, endocarditis Requesting physician: Ruslan Maxwell History of present illness: This is a 68-year-old gentle man who follows on an outpatient basis with Dr. Solomon Gardiner. He has a previous medical history of aortic stenosis status post aortic valve replacement in June 2014 with a #21 Trifecta valve as well as aortic endarterectomy, hypertension, hyperlipidemia, diabetes, peripheral vascular disease, daily EtOH use, and previous tobacco dependence. He presented to the emergency room at [facility] with complaints of shortness of breath, cough, intermittent fevers which began in March 2019 while he was in [place]. He was seen in the emergency room in [place] twice, did not appear to be getting any better, and came home to [place] for further treatment. Apparently he had a fall at home prompting him to come into the emergency room here. On admission his temperature is 10 1F, white blood cell count was 10.8, lactic acid was 3.2, BNP was 4860, and troponin was elevated at 0.657. Chest x-ray demonstrated no acute pulmonary process. CTA of the chest demonstrated no pulmonary embolus but left clavicular fracture was found as well as possible chest wall abscess. The patient was admitted for evaluation and treatment with consultation placed to cardiology and pulmonology. The patient was placed on IV antibiotics and infectious disease was consulted. Interventional radiology was asked to drain the chest wall abscess, however they were only able to get a droplet of aspirate. The patient also had an MRI of the brain demonstrating bilateral acute and subacute lacunar infarcts in both the supratentorial and infratentorial white matter suspicious for embolic disease, possibly related to infective endocarditis. This morning the patient had a transesophageal echocardiogram and was found to have vegetation on his bioprosthetic aortic valve. Blood cultures were positive for enterococcus faecalis on May 03 and group D enterococcus on May 04. Dr. Diamond was consulted for recommendations regarding drainage of chest wall abscess. Review of Systems Review of systems was completed, although information came from patient's significant other as patient is sleeping - Constitutional Reports fatigue, Reports fever, Reports lethargy, Reports malaise - Respiratory Reports cough, Reports dyspnea Past Medical History Past Medical History: Cancer, Diabetes Mellitus, Hyperlipidemia, Hypertension, Osteoarthritis (OA) Additional Past Medical History / Comment(s): history of skin cancer, history of gout, hyperlipidemia, hypertension, OA, diabetes mellitus History of Any Multi-Drug Resistant Organisms: None Reported Past Surgical History: Heart Catheterization, Orthopedic Surgery Additional Past Surgical History / Comment(s): ORIF rt hand and ankle, aortic valve replacement #21 Trifecta bioprosthetic valve placed June 2014 Past Anesthesia/Blood Transfusion Reactions: No Reported Reaction Past Psychological History: No Psychological Hx Reported Smoking Status: Former smoker Past Alcohol Use History: Daily Additional Past Alcohol Use History / Comment(s): started smoking at age 15 quit at age 26 smoked 3ppd Past Drug Use History: None Reported - Past Family History Father Family Medical History: Cancer Medications and Allergies Home Medications Medication Instructions Recorded Confirmed Type Lisinopril 15 mg PO HS 06/09/14 05/04/19 History Zolpidem [Ambien] 10 mg PO HS 06/11/14 05/04/19 History Magnesium Oxide [Mag-Ox] 400 mg PO DAILY 07/13/14 05/04/19 History Metoprolol Tartrate 12.5 mg PO BID #60 tab 07/18/14 05/04/19 Rx Allopurinol [Zyloprim] 100 mg PO DAILY 07/25/17 05/04/19 History Aspirin EC [Ecotrin Low Dose] 81 mg PO DAILY 07/25/17 05/04/19 History Cetirizine HCl [Zyrtec] 10 mg PO DAILY 07/25/17 05/04/19 History Furosemide [Lasix] 20 mg PO DAILY 07/25/17 05/04/19 History Rosuvastatin [Crestor] 10 mg PO HS 07/25/17 05/04/19 History Albuterol Sulfate [Ventolin HFA] 2 puff INHALATION RT-QID PRN 05/04/19 05/04/19 History Budesonide [Pulmicort] 0.5 mg INHALATION RT-BID 05/04/19 05/04/19 History Empagliflozin [Jardiance] 10 mg PO DAILY 05/04/19 05/04/19 History HYDROcodone/APAP 5-325MG [Shickley 1 tab PO Q4H PRN 05/04/19 05/04/19 History 5-325] Montelukast [Singulair] 10 mg PO HS 05/04/19 05/04/19 History glipiZIDE [Glucotrol] 10 mg PO AC-BID 05/04/19 05/04/19 History predniSONE See Taper PO DAILY 05/04/19 05/04/19 History Allergies Allergy/AdvReac Type Severity Reaction Status Date / Time No Known Allergies Allergy Verified 11/11/18 08:29 Surgical - Exam Vital Signs Temp Pulse Resp BP Pulse Ox 102.1 F H 121 H 22 109/62 99 05/04/19 04:10 05/04/19 04:10 05/04/19 04:10 05/04/19 04:10 05/04/19 04:10 - General well developed, well nourished, no distress, no pain, chronically ill, obese - Eyes normal ocular movement - ENT no hearing loss - Neck no masses, no bruits, trachea midline - Respiratory Lungs sounds diminished bilaterally with faint wheezing heard. Respirations even, nonlabored. Currently on 2 L nasal cannula with oxygen saturation 98%. - Cardiovascular S1, S2 present. Systolic murmur present. Regular rate and rhythm, sinus rhythm on telemetry. Palpable peripheral pulses bilaterally. No edema present. No calf pain or tenderness noted. SCDs present. - Abdomen Abdomen: soft, non tender, bowel sounds - Genitourinary Pierce present draining clear, yellow urine - Rectum Deferred - Integumentary no rash, no growths - Psychiatric oriented to time, oriented to person, oriented to place Results - Labs 05/07/19 05:15 05/07/19 05:15 Abnormal Lab Results - Last 24 Hours (Table) 05/06/19 05/06/19 05/07/19 Range/Units 17:21 19:55 05:15 RBC 3.29 L (4.30-5.90) m/uL Hgb 10.5 L (13.0-17.5) gm/dL Hct 32.0 L (39.0-53.0) % Plt Count 91 L (150-450) k/uL Neutrophils # 8.5 H (1.3-7.7) k/uL Lymphocytes # 0.9 L (1.0-4.8) k/uL Sodium (137-145) mmol/L Carbon Dioxide (22-30) mmol/L Creatinine (0.66-1.25) mg/dL Glucose (74-99) mg/dL POC Glucose (mg/dL) 150 H 194 H (75-99) mg/dL Calcium (8.4-10.2) mg/dL 05/07/19 05/07/19 05/07/19 Range/Units 05:15 06:28 11:54 RBC (4.30-5.90) m/uL Hgb (13.0-17.5) gm/dL Hct (39.0-53.0) % Plt Count (150-450) k/uL Neutrophils # (1.3-7.7) k/uL Lymphocytes # (1.0-4.8) k/uL Sodium 132 L (137-145) mmol/L Carbon Dioxide 20 L (22-30) mmol/L Creatinine 0.57 L (0.66-1.25) mg/dL Glucose 163 H (74-99) mg/dL POC Glucose (mg/dL) 160 H 171 H (75-99) mg/dL Calcium 7.7 L (8.4-10.2) mg/dL Microbiology - Last 24 Hours (Table) 05/06/19 05:37 Blood Culture Gram Stain - Preliminary Blood Blood Culture - Preliminary Group D Enterococcus 05/04/19 17:20 Blood Culture Gram Stain - Final Blood Blood Culture - Final Enterococcus faecalis 05/04/19 17:35 Blood Culture Gram Stain - Final Blood Blood Culture - Final Enterococcus faecalis 05/04/19 04:40 Blood Culture Gram Stain - Final Blood Blood Culture - Final Enterococcus faecalis 05/05/19 11:56 Blood Culture Gram Stain - Preliminary Blood Blood Culture - Preliminary Group D Enterococcus 05/06/19 05:37 Blood Culture - Final Blood Diabetes panel 05/07/19 Range/Units 05:15 Sodium 132 L (137-145) mmol/L Potassium 4.5 (3.5-5.1) mmol/L Chloride 107 (98-107) mmol/L Carbon Dioxide 20 L (22-30) mmol/L BUN 15 (9-20) mg/dL Creatinine 0.57 L (0.66-1.25) mg/dL Glucose 163 H (74-99) mg/dL Calcium 7.7 L (8.4-10.2) mg/dL Calcium panel 05/07/19 Range/Units 05:15 Calcium 7.7 L (8.4-10.2) mg/dL Pituitary panel 05/07/19 Range/Units 05:15 Sodium 132 L (137-145) mmol/L Potassium 4.5 (3.5-5.1) mmol/L Chloride 107 (98-107) mmol/L Carbon Dioxide 20 L (22-30) mmol/L BUN 15 (9-20) mg/dL Creatinine 0.57 L (0.66-1.25) mg/dL Glucose 163 H (74-99) mg/dL Calcium 7.7 L (8.4-10.2) mg/dL Adrenal panel 05/07/19 Range/Units 05:15 Sodium 132 L (137-145) mmol/L Potassium 4.5 (3.5-5.1) mmol/L Chloride 107 (98-107) mmol/L Carbon Dioxide 20 L (22-30) mmol/L BUN 15 (9-20) mg/dL Creatinine 0.57 L (0.66-1.25) mg/dL Glucose 163 H (74-99) mg/dL Calcium 7.7 L (8.4-10.2) mg/dL - Imaging Chest x-ray: report reviewed, image reviewed CT scan - chest: report reviewed, image reviewed EKG: image reviewed Assessment and Plan Assessment: 1. Bacterial endocarditis 2. Bacteremia, blood cultures positive forenterococcus faecalis on May 03 and group D enterococcus on May 04 3. Left clavicle fracture, sternoclavicular joint abscess 4. Lactic acidosis on admission, improved 5. History of aortic stenosis status post bioprosthetic aortic valve replacement in June 2014 6. Hypertension 7. Hyperlipidemia 8. Diabetes 9. Peripheral vascular disease 10. Daily EtOH abuse 11. Previous tobacco dependence Plan: The patient was seen and examined at the bedside. Chart/diagnostics were reviewed. The case was discussed with Dr. Diamond via phone, he will see the patient today. Continue the patient on IV antibiotics. Medical management of other comorbidities per primary care service, cardiology, infectious disease. Further recommendations to follow. Thank you Dr. Maxwell for this consult. Time with Patient: Greater than 30
--- NOTE | 2019-05-07 16:28 | PN ---
PROGRESS NOTE DATE OF SERVICE: 05/07/2019 REASON FOR FOLLOWUP: Enterococcus aortic wall endocarditis. INTERVAL HISTORY: The patient is currently afebrile, has been complaining of generalized body aches. The patient denies having any chest pain. He did have a LINDSAY this morning which the patient tolerated. No nausea, no vomiting. No abdominal pain. No diarrhea. PHYSICAL EXAMINATION: Blood pressure 133/73 with a pulse of 80, temperature 98.1. He is 97% on 2 L nasal cannula. General description is an elderly male up in the chair in no distress. Respiratory system: Unlabored breathing. Decreased breath sounds in the bases. No wheeze. Heart S1, S2. Regular rate and rhythm. Abdomen soft, no tenderness. Extremities: No edema of the feet. LABS: Hemoglobin is 10.5, white count 10.2, BUN of 15, creatinine 0.57. Blood culture has been finalized with Enterococcus faecalis sensitive to ampicillin and gentamicin. DIAGNOSTIC IMPRESSION AND PLAN: Patient with Enterococcus faecalis bacteremia secondary to aortic valve endocarditis, valve was functioning per the cardiology note, the patient antibiotic will be adjusted to Ampicillin 2 gm q.4h along with gentamicin and we will monitor his kidney function closely. Continue supportive care. MMODL / IJN: [id number] /
[2019-05-07] MEDS: AMPICILLIN 2,000 MG in SODIUM CHLORIDE 0.9% 100 ML IVPB SCH ×2 (16:45→21:07)
[2019-05-07] MEDS: GENTAMICIN IN NACL ISO-OSM PMX 80 MG in SALINE 1 100ML.BAG IVPB SCH ×2 (16:45→23:45)
[2019-05-07 16:56] LABS: Glucose,Whole Blood 165 mg/dL (75-99)
[2019-05-07 20:19] LABS: Glucose,Whole Blood 144 mg/dL (75-99)
[2019-05-07] MEDS: MONTELUKAST 10 MG TAB PO SCH (20:33)
[2019-05-07] MEDS: LISINOPRIL 10 MG TAB PO SCH (20:33)
[2019-05-08] MEDS: HYDROcodone/APAP 5-325MG 1 EACH TAB PO PRN ×5 (00:36→23:01)
[2019-05-08] MEDS: AMPICILLIN 2,000 MG in SODIUM CHLORIDE 0.9% 100 ML IVPB SCH ×6 (00:38→21:30)
[2019-05-08] MEDS: SODIUM CHLORIDE 0.9% 1,000 ML IV SCH (05:32)
[2019-05-08 06:13] LABS: Basophils % (A) 0 %; Eosinophils # (A) 0.1 k/uL (0-0.7); Eosinophils % (A) 1 %; HCT 33.8 % (39.0-53.0); HGB 10.9 gm/dL (13.0-17.5); Lymphocytes # (A) 0.9 k/uL (1.0-4.8); Lymphocytes % (A) 8 %; MCH 31.7 pg (25.0-35.0); MCHC 32.3 g/dL (31.0-37.0); MCV 98.4 fL (80.0-100.0); Mean Platelet Volume 9.1; Monocytes # (A) 0.4 k/uL (0-1.0); Monocytes % (A) 3 %; Neutrophils # (A) 10.2 k/uL (1.3-7.7); Neutrophils % (A) 86 %; Platelet Count 125 k/uL (150-450); RBC 3.44 m/uL (4.30-5.90); RDW 13.5 % (11.5-15.5)
[2019-05-08] MEDS: INSULIN ASPART (NovoLOG) 100 UNIT/ML VIAL SQ SCH ×7 (06:16→21:11)
[2019-05-08 06:17] LABS: Glucose,Whole Blood 128 mg/dL (75-99)
[2019-05-08 06:23] LABS: African American GFR (CKD) >90 (>60 ml/min/1.73 sqM); Anion Gap 7 mmol/L; Blood Urea Nitrogen 13 mg/dL (9-20); Carbon Dioxide 22 mmol/L (22-30); Chloride 105 mmol/L (98-107); Glucose 117 mg/dL (74-99); Non-African American GFR(CKD) >90 (>60 ml/min/1.73 sqM); Potassium 4.9 mmol/L (3.5-5.1); Sodium 134 mmol/L (137-145)
[2019-05-08] MEDS: IPRATROPIUM-ALBUTEROL 3 ML NEB INHALATION SCH ×4 (07:47→20:17)
[2019-05-08] MEDS: BUDESONIDE 0.5 MG/2 ML NEBU INHALATION SCH ×2 (07:47→20:16)
--- NOTE | 2019-05-08 08:09 | PN ---
PROGRESS NOTE Mr. Espinoza is a 68-year-old male who presented with change in mental status and evidence of bacteremia. He underwent transesophageal echocardiogram yesterday, revealed evidence of vegetation on the aortic valve. He remains awake, confused at times. Hemodynamically he is stable. He seems to be more awake. He has no malignant arrhythmia. Hemodynamically, he is stable. He has been evaluated by Dr. Diamond for possible debridement of his chest. He had an MRI that showed numerous bilateral lacunar infarct, raising possibility of embolic phenomenon especially with the fact that he had an abnormal LINDSAY. His blood culture was positive for group D enterococcus. His LINDSAY showed no evidence of significant aortic regurgitation on the bioprosthetic aortic valve. He continues to be at this time on aspirin once a day, Lipitor 40 mg daily, furosemide 20 mg daily, lisinopril 10 mg daily, metoprolol tartrate 25 mg twice a day, in addition to the antibiotics regimen. PHYSICAL EXAMINATION: Blood pressure 135/70 with a heart rate in the 80s. LUNGS: Clear. HEART: Regular rate and rhythm, S1, S2. No S3 with systolic murmur heard at the base, no diastolic murmur. ABDOMEN: Soft, nontender, obese. Positive bowel sounds, no organomegaly. EXTREMITIES: No edema. Mentation-hcang he is awake, alert, but confused at times. Appears to be more awake than yesterday. LAB DATA: Revealed BUN and creatinine 13 and 0.56, potassium 4.9, hemoglobin 10.9, platelet count of 125. IMPRESSION: 1. Endocarditis with vegetation on the bioprosthetic aortic valve with no evidence of perivalvular leak nor aortic regurgitation. 2. Change in mental status related to the sepsis and embolization delivery. 3. Enterococcus D bacteremia. 4. Left sternoclavicular abscess. 5. Diabetes. 6. Hypertension. 7. Hyperlipidemia. RECOMMENDATION: The patient may require debridement of the abscess in the distal clavicle area. He has been evaluated by Dr. Diamond and will continue to follow closely. The patient will require prolonged antibiotic treatment. He has been followed with the Infectious Disease service. Will continue to increase his activity gradually and depending on his progress, further recommendation will be made. MMODL / IJN: [id number] /
[2019-05-08] MEDS: GENTAMICIN IN NACL ISO-OSM PMX 80 MG in SALINE 1 100ML.BAG IVPB SCH ×2 (08:16→16:02)
[2019-05-08] MEDS: 0.9% NACL WITH KCL 20 MEQ/L 1,000 ML with MVI, ADULT NO.4 WITH VIT K 10 ML, THIAMINE 10... IV SCH ×4 (08:17)
[2019-05-08] MEDS: ALLOPURINOL 100 MG TAB PO SCH (08:17)
[2019-05-08] MEDS: MAGNESIUM OXIDE 400 MG TAB PO SCH (08:18)
[2019-05-08] MEDS: METOPROLOL TARTRATE 25 MG TAB PO SCH ×2 (08:18→21:10)
[2019-05-08] MEDS: ASPIRIN 81 MG PO SCH (08:19)
[2019-05-08] MEDS: HEPARIN SODIUM,PORCINE 5,000 UNIT/ML 1 ML VIAL SQ SCH ×2 (08:19→21:10)
[2019-05-08] MEDS: PANTOPRAZOLE 40 MG/10 ML VIAL IVP SCH (08:19)
[2019-05-08] MEDS: LORATADINE 10 MG TAB PO SCH (08:19)
[2019-05-08] MEDS: ATORVASTATIN 40 MG TAB PO SCH (08:19)
[2019-05-08] MEDS: FUROSEMIDE 20 MG TAB PO SCH (08:19)
--- NOTE | 2019-05-08 09:58 | P.PN ---
Subjective Progress Note Date: 05/08/19 This is a pleasant 68-year-old male past medical history significant for valvular heart disease status post bioprosthetic aortic valve replacement in 2014, peripheral vascular disease status post aortic endarterectomy 2014, diabetes mellitus, hypertension and dyslipidemia. He admits to daily alcohol intake. He does not follow in the office with a stem mounter. We have been asked to see in consultation for elevated troponin. He initially presented to the emergency department with symptoms of shortness of breath, cough and fall. He is unsure. It corresponding loss of consciousness. He states that he lost his balance falling on the left side of his body. He was noted to be febrile on admission with a temperature of 101.7. The patient states that he was sick since March 2019. Back then he was in [place]. On and off he was having fever. He was seen in [place] emergency department and he was given treatment and the exact treatment is not known to us at this point in time. The patient himself is a very poor historian. I think is lethargic and somewhat encephalopathic and is unable to volunteer detailed history. He came in to the hospital regarding these ongoing problems. The hospital, the patient was found to have a white cell count of 10.8. His initial lactic acid level was 3 and it dropped down to 1.0. Troponin was slightly positive at 0.657. ProBNP level was 4860. CT angiogram of the chest was done and was negative for pulmonary embolism. There was a soft tissue collection superior aspect of the left sternoclavicular joint at the level of the third and had with some tissue thickening and there is involvement of the sternum and there is also recommended the undisplaced fracture of the left clavicle. On examination, the patient is sore in the involved area without any significant erythema or warmth. For now he is on examination of Rocephin and Zithromax. He does have a cardiac murmur. He has a bioprosthetic aortic valve that was placed in 2014. On today's evaluation the patient is being seen in follow-up on 05/05/2019. The patient remains on a VATS with a tidal volume of 550. His current meds as the patient is at 10.6. He is pulling approximately 500 mL of tidal volume while being on this current moles. Overnight the patient became more restless and agitated. He apparently drinks and he is enjoying for around a week or 2 and he became confused. He was placed on the CIWA protocol and the patient was given Ativan where he received a total of 1.5 mg of Ativan. He remains on broad- spectrum antibiotics. He has been on a combination of Unasyn and vancomycin. Protocol troponin level is elevated. He was supposed to have a aspiration of the chest wall abscess/collection by interventional radiology. He was still seeking a consent from the significant other. Interventional radiology supposed to undergo this drainage of the possible chest wall abscess today once consent is obtained. On 05/06/2019 patient is seen in follow-up in intensive care unit, he is more arousable today, but remains confused, still somnolent, but opens eyes, and answers questions, but inattentive. Positive CAM ICU score. Off BiPAP support currently, he is on 2 L of oxygen and the pulse ox of 99 200%, he is afebrile, in sinus mechanism with a rate of 76, blood pressures 101/69, no vasoactive drips, maintenance IV fluids 0.9 normal saline at a rate of 100, patient is getting thiamine replacement and MVI replacement at a rate of 50 ML per hour. Patient has enterococcus D bacteremia on 2 separate blood cultures, follow blood cultures are negative thus far, he is on a culmination of Unasyn and vancomycin for antibiotics. Urinalysis without signs of infection, no significant cough or congestion, lung sounds reveal diminished breath sounds with mild wheezing. Today's labs reviewed, showing white blood cell count of 12.5, hemoglobin of 10.4, serum sodium 1:30, potassium is 4.2, CO2 is 20, BUN of 22 creatinine 0.59. Patient is producing adequate urine output, and the order of 100-200 ML per hour. Transthoracic echocardiogram did not show evidence of vegetation and showed adequately functioning bioprosthetic aortic valve. Yesterday patient underwent ultrasound-guided needle aspiration biopsy of the left sternoclavicular mass however there was only of droplet of blood aspirated. Cardiology is following, and will be requested to perform transesophageal echocardiogram to rule out possibility of endocarditis. On 05/07/2019 patient seen in follow-up in the intensive care unit, this morning he had his transesophageal echocardiogram by Dr. Babar Kulkarni, and patient was found to have vegetation on his bioprosthetic aortic valve. 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 Blood cultures from 05/04/2019 positive for Enterococcus faecalis, 05/05/2019 were positive for group D enterococcus. Patient is currently on Unasyn and vancomycin. This morning he seen in the intensive care unit, she is lethargic, but arouses to verbal stimuli, he still under the effect of fentanyl and Versed given for the transesophageal echocardiogram. Hemodynamically patient stable, he is in sinus mechanism with a rate of 74 BPM, blood pressures 104/65, patient is on 2 L of oxygen with a pulse ox of 96%, lung sounds reveal diminished breath sounds bilaterally, some scattered crackles, no wheezes, Pierce catheter is in place and patient is producing adequate amount of urine, patient is on IV fluids in the form of MVI at a rate of 50 ML per hour, and 0.9 normal saline at a rate of 50 ML per hour, he is on clear liquid diet yesterday, today we can advance his diet as tolerated once the patient is more awake. On 05/08/2019 patient seen in follow-up in the intensive care unit, more awake today, responsive, he is oriented 3, he remains on a combination of Unasyn and vancomycin for enterococcus faecalis bacteremia, follow-up blood cultures are showing gram-positive cocci in chains, final culture is pending, we'll repeat another set of blood cultures. Today's lab work has been reviewed showing blood cell count of 12.0, hemoglobin of 10.9, sodium is improving, up to 134, potassium is 4.9, BUN of 13 creatinine 0.56. ID service is following, CT surgery consultation was noted, no plans for surgical intervention, overall clinically seems to be improving, dyspneic with exertion, lung sounds reveal bibasilar crackles, denies any abdominal pain, denies any nausea or vomiting no diarrhea, he is tolerating oral intake, he is on 2 L of oxygen with a pulse ox of 96%. Patient was working with the physical therapy yesterday and he was up to the chair Objective - Vital Signs Vital signs: Vital Signs Temp 97.7 F 05/08/19 08:00 Pulse 93 05/08/19 09:00 Resp 28 H 05/08/19 09:00 BP 108/69 05/08/19 09:00 Pulse Ox 95 05/08/19 09:00 Intake & Output 05/07/19 05/08/19 05/08/19 18:59 06:59 18:59 Intake Total 1800 1600 1360 Output Total 1256 1410 330 Balance 876 075 6513 Weight 94.4 kg Intake: IV 1800 1600 400 0.9% NaCl with KCl 20 Meq 550 600 150 /l 1,000 ml @ 50 mls/hr IV .[id number] [facility]ISA with Mvi, Adult No.4 with Vit K 10 ml with Thiamine 100 mg with Folic Acid 1 mg Rx#: [id number] Ampicillin 2,000 mg In 100 300 100 Sodium Chloride 0.9% 100 ml @ 200 mls/hr IVPB Q4H [facility] Rx#:[id number] Ampicillin-Sulbactam 3 gm 200 In Sodium Chloride 0.9% 100 ml @ 200 mls/hr IVPB Q6H [facility] Rx#:[id number] Gentamicin in NaCl Iso- 100 100 100 Osm Pmx 80 mg In Saline 1 100ml.bag @ 100 mls/hr IVPB Q8HR [facility] Rx#: [id number] Sodium Chloride 0.9% 1, 600 600 50 000 ml @ 50 mls/hr IV . Q20H [facility] Rx#:[id number] Vancomycin 1,500 mg In 250 Sodium Chloride 0.9% 250 ml @ 125 mls/hr IVPB Q12H [facility] Rx#:[id number] Oral 960 Output: Urine 1256 1410 330 Other: Voiding Method Indwelling Catheter Indwelling Catheter Indwelling Catheter - Exam GENERAL EXAM: Awake and alert, oriented 3 a pleasant 68-year-old white male, arousable to verbal stimuli, at times slightly lethargic, but arousable, overall level of consciousness has improved since yesterday's exam HEAD: Normocephalic/atraumatic. EYES: Normal reaction of pupils, equal size. Conjunctiva pink, sclera white. NOSE: Clear with pink turbinates. THROAT: No erythema or exudates. NECK: No masses, no JVD, no thyroid enlargement, no adenopathy. CHEST: No chest wall deformity. Symmetrical expansion. Tenderness at the left sternoclavicular junction at the site of the attempted needle aspiration of the sternal abscess LUNGS: Equal air entry with no crackles, rhonchi or dullness. Mild wheezing noted CVS: Regular rate and rhythm, normal S1 and S2, no gallops, no murmurs, no rubs ABDOMEN: Soft, nontender. No hepatosplenomegaly, normal bowel sounds, no guarding or rigidity. EXTREMITIES: No clubbing, no edema, no cyanosis, 2+ pulses and upper and lower extremities. MUSCULOSKELETAL: Muscle strength and tone normal. SPINE: No scoliosis or deformity SKIN: No rashes CENTRAL NERVOUS SYSTEM: Awake and alert, just back to sleep oriented -3. No focal deficits, tone is normal in all 4 extremities. - Labs CBC & Chem 7: 05/08/19 05:05/08/19 05:31 Labs: Abnormal Lab Results - Last 24 Hours (Table) 05/07/19 05/07/19 05/07/19 Range/Units 11:54 16:55 20:19 WBC (3.8-10.6) k/uL RBC (4.30-5.90) m/uL Hgb (13.0-17.5) gm/dL Hct (39.0-53.0) % Plt Count (150-450) k/uL Neutrophils # (1.3-7.7) k/uL Lymphocytes # (1.0-4.8) k/uL Sodium (137-145) mmol/L Creatinine (0.66-1.25) mg/dL Glucose (74-99) mg/dL POC Glucose (mg/dL) 171 H 165 H 144 H (75-99) mg/dL Calcium (8.4-10.2) mg/dL 05/08/19 05/08/19 05/08/19 Range/Units 05:31 05:31 06:16 WBC 12.0 H (3.8-10.6) k/uL RBC 3.44 L (4.30-5.90) m/uL Hgb 10.9 L (13.0-17.5) gm/dL Hct 33.8 L (39.0-53.0) % Plt Count 125 L (150-450) k/uL Neutrophils # 10.2 H (1.3-7.7) k/uL Lymphocytes # 0.9 L (1.0-4.8) k/uL Sodium 134 L (137-145) mmol/L Creatinine 0.56 L (0.66-1.25) mg/dL Glucose 117 H (74-99) mg/dL POC Glucose (mg/dL) 128 H (75-99) mg/dL Calcium 8.0 L (8.4-10.2) mg/dL Microbiology - Last 24 Hours (Table) 05/05/19 11:56 Blood Culture Gram Stain - Final Blood Blood Culture - Final Enterococcus faecalis 05/05/19 15:50 Gram Stain - Final Other - Other Wound Culture - Final 05/07/19 05:15 Blood Culture Gram Stain - Preliminary Blood 05/07/19 05:15 Blood Culture - Final Blood 05/06/19 05:37 Blood Culture Gram Stain - Preliminary Blood Blood Culture - Preliminary Group D Enterococcus Assessment and Plan Plan: Assessment: 1 enterococcus D bacteremia and infective endocarditis, transesophageal echocardiogram showed vegetation on the bioprosthetic aortic valve, follow-up blood cultures are positive for enterococcus faecalis, and remained positive as of yesterday 05/07/2023 gram-positive cocci in chains 2 septic emboli to the brain, and secondary altered mentation, on today's exam mentation is improving, patient is more arousable, and oriented 3 3 left sternoclavicular joint abscess, unsuccessful ultrasound-guided needle aspiration, with the possibility of sternal bone infection 4 mild lactic acidosis, improved 5 fever, improved 6 hyponatremia, likely acute, and his sodium level is improving is up to 129. The patient is on IV fluids and currently receiving, normal saline at the rate of 130 mL an hour, improving 7 aortic valve replacement/bioprosthetic aortic valve in 2014 8 lethargy and diminished level of consciousness secondary to above, possibly secondary to metabolic encephalopathy and septic emboliisms. Ativan has been discontinued, MRI of the brain showed multiple areas of infarction suggestive of septic embolisms. Mentation and level of consciousness improving on today's exam 9 diabetes mellitus type 2 10 hypertension 11 hyperlipidemia 12 gout 13 COPD 14 troponin leak likely secondary to above currently on IV heparin 15 Peripheral vascular disease 16 history of alcoholism 17 Clavicular fracture secondary to fall Plan: Continue current antibiotics per ID service recommendations. Follow-up blood cultures today, we will obtain CT of the abdomen with oral contrast. Patient is tolerating oral intake, no nausea vomiting diarrhea, no abdominal pain. No fever, hemodynamically stable, more awake on today's exam, responding appropriately, less confused. GI and DVT prophylaxis, increase activity as tolerated, physical therapy is following. We'll continue to follow I performed a history & physical examination of the patient and discussed their management with my nurse practitioner, Monica Davalos. I reviewed the nurse practitioner's note and agree with the documented findings and plan of care. Lung sounds are positive for mild wheezes throughout the lung braden. The findings and the impression was discussed with the patient. I attest to the documentation by the nurse practitioner. Time with Patient: Less than 30
--- NOTE | 2019-05-08 10:22 | P.PN ---
Subjective Progress Note Date: 05/08/19 Principal diagnosis: Bacterial endocarditis, bacteremia with enterococcus faecalis, left clavicle fracture, lactic acidosis on admission. Previous medical history of aortic stenosis status post aortic valve replacement in June 2014 with #21, effective valve as well as aortic endarterectomy, hypertension, hyperlipidemia, diabetes, peripheral vascular disease, daily EtOH use, and previous tobacco dependence. The patient is currently sitting up in bed in the intensive care unit in no acute distress. More alert today. Denies pain unless left clavicle is palpated, denies shortness of breath. Significant other is at the bedside. The patient was seen yesterday evening by Dr. Diamond, no plan for surgical intervention at this time. No other new concerns. Objective - Vital Signs Vital signs: Vital Signs Temp 97.7 F 05/08/19 08:00 Pulse 93 05/08/19 09:00 Resp 28 H 05/08/19 09:00 BP 108/69 05/08/19 09:00 Pulse Ox 95 05/08/19 09:00 Intake & Output 05/07/19 05/08/19 05/08/19 18:59 06:59 18:59 Intake Total 1800 1600 1360 Output Total 1256 1410 330 Balance 619 614 2017 Weight 94.4 kg Intake: IV 1800 1600 400 0.9% NaCl with KCl 20 Meq 550 600 150 /l 1,000 ml @ 50 mls/hr IV .[id number] [facility] with Mvi, Adult No.4 with Vit K 10 ml with Thiamine 100 mg with Folic Acid 1 mg Rx#: [id number] Ampicillin 2,000 mg In 100 300 100 Sodium Chloride 0.9% 100 ml @ 200 mls/hr IVPB Q4H [facility] Rx#:[id number] Ampicillin-Sulbactam 3 gm 200 In Sodium Chloride 0.9% 100 ml @ 200 mls/hr IVPB Q6H [facility] Rx#:[id number] Gentamicin in NaCl Iso- 100 100 100 Osm Pmx 80 mg In Saline 1 100ml.bag @ 100 mls/hr IVPB Q8HR [facility] Rx#: [id number] Sodium Chloride 0.9% 1, 600 600 50 000 ml @ 50 mls/hr IV . Q20H [facility] Rx#:[id number] Vancomycin 1,500 mg In 250 Sodium Chloride 0.9% 250 ml @ 125 mls/hr IVPB Q12H [facility] Rx#:[id number] Oral 960 Output: Urine 1256 1410 330 Other: Voiding Method Indwelling Catheter Indwelling Catheter Indwelling Catheter - Constitutional General appearance: Present: cooperative, no acute distress, obese - Respiratory Details: Lungs sounds diminished bilaterally with faint wheezing heard. Respirations even, nonlabored. Currently on 2 L nasal cannula with oxygen saturation 97%. - Cardiovascular Details: S1, S2 present. Systolic murmur present. Regular rate and rhythm, sinus rhythm on telemetry. Palpable peripheral pulses bilaterally. No edema present. No calf pain or tenderness noted. SCDs present. - Gastrointestinal Gastrointestinal Comment(s): Abdomen soft, nontender, nondistended. Active bowel sounds 4 quadrants. Tolerating diet. - Genitourinary Genitourinary Comment(s): Pierce present draining clear, yellow urine. Output 65-130 mL/h overnight - Integumentary Integumentary Comment(s): Skin is warm and dry with evidence of good perfusion - Neurologic Neurologic: Present: CNII-XII intact - Musculoskeletal Musculoskeletal: Present: strength equal bilaterally - Psychiatric Psychiatric: Present: A&O x's 3, appropriate affect - Allied health notes Allied health notes reviewed: nursing - Labs CBC & Chem 7: 05/08/19 05:31 05/08/19 05:31 Labs: Abnormal Lab Results - Last 24 Hours (Table) 05/07/19 05/07/19 05/07/19 Range/Units 11:54 16:55 20:19 WBC (3.8-10.6) k/uL RBC (4.30-5.90) m/uL Hgb (13.0-17.5) gm/dL Hct (39.0-53.0) % Plt Count (150-450) k/uL Neutrophils # (1.3-7.7) k/uL Lymphocytes # (1.0-4.8) k/uL Sodium (137-145) mmol/L Creatinine (0.66-1.25) mg/dL Glucose (74-99) mg/dL POC Glucose (mg/dL) 171 H 165 H 144 H (75-99) mg/dL Calcium (8.4-10.2) mg/dL 05/08/19 05/08/19 05/08/19 Range/Units 05:31 05:31 06:16 WBC 12.0 H (3.8-10.6) k/uL RBC 3.44 L (4.30-5.90) m/uL Hgb 10.9 L (13.0-17.5) gm/dL Hct 33.8 L (39.0-53.0) % Plt Count 125 L (150-450) k/uL Neutrophils # 10.2 H (1.3-7.7) k/uL Lymphocytes # 0.9 L (1.0-4.8) k/uL Sodium 134 L (137-145) mmol/L Creatinine 0.56 L (0.66-1.25) mg/dL Glucose 117 H (74-99) mg/dL POC Glucose (mg/dL) 128 H (75-99) mg/dL Calcium 8.0 L (8.4-10.2) mg/dL Microbiology - Last 24 Hours (Table) 05/05/19 11:56 Blood Culture Gram Stain - Final Blood Blood Culture - Final Enterococcus faecalis 05/05/19 15:50 Gram Stain - Final Other - Other Wound Culture - Final 05/07/19 05:15 Blood Culture Gram Stain - Preliminary Blood 05/07/19 05:15 Blood Culture - Final Blood 05/06/19 05:37 Blood Culture Gram Stain - Preliminary Blood Blood Culture - Preliminary Group D Enterococcus Assessment and Plan Assessment: 1. Bacterial endocarditis 2. Bacteremia, blood cultures positive for enterococcus faecalis May 03, , , 3. Left clavicle fracture, sternoclavicular fluid present, abscess versus hematoma, minimal culture sent and is negative 4. Lactic acidosis on admission, improved 5. History of aortic stenosis status post bioprosthetic aortic valve replacement in June 2014 6. Hypertension 7. Hyperlipidemia 8. Diabetes 9. Peripheral vascular disease 10. Daily EtOH abuse 11. Previous tobacco dependence Plan: 1. The patient was seen last night by Dr. Diamond, films were reviewed by Dr. Diamond and this morning by Dr. Landry. Both feel that surgery is not warranted. Continue IV antibiotics. Consider GI source/workup for determination of bacteremia 2. Antibiotics per infectious disease, switched to ampicillin and gentamycin 3. Medical management of other comorbidities per primary care service, cardiology, infectious disease, pulmonology. 4. Will see again as needed. Please call us with any further questions Time with Patient: Greater than 30
[2019-05-08] MEDS: IOPAMIDOL CONTRAST (ORAL USE) VIAL PO PRN ×2 (11:04→12:04)
[2019-05-08 13:19] LABS: Glucose,Whole Blood 181 mg/dL (75-99)
--- NOTE | 2019-05-08 13:28 | CT ---
EXAMINATION TYPE: CT abdomen pelvis wo con DATE OF EXAM: 05/08/2019 HISTORY: Bacteremia, Enterococcal. Pain and fever. CT DLP: 895.2 mGycm. Automated Exposure Control for Dose Reduction was Utilized. TECHNIQUE: CT scan of the abdomen and pelvis is performed with oral but without IV contrast. COMPARISON: NONE FINDINGS: Within the limitations of a non-contrast study, the following observations are made. Sligh tly suboptimal as patient unable to stay still. Motion artifact is present. LUNG BASES: There is partial visualization of overlying sternal wires and mediastinal clips. There is mild cardiomegaly with small bilateral pleural effusions and associated compressive atelectasis.. LIVER/GB: No significant abnormality is appreciated. PANCREAS: No significant abnormality is seen. SPLEEN: No significant abnormality is seen. ADRENALS: No significant abnormality is seen. KIDNEYS: Simple parenchymal cysts are scattered throughout both kidneys. Mild to moderate perinephric fat stranding bilaterally. Findings nonspecific but most likely on basis of product of chronic medic al renal disease. There is linear calcification thought present lower pole of left kidney. Bladder poorly distended wit h Pierce catheter is in place. BOWEL: Oral contrast does not reach level of terminal ileum making evaluation distal bowel slightly s uboptimal. No suspicious small or large bowel dilatation is seen. A few scattered diverticula in the sigmoid colon without CT evidence for acute diverticulitis. GENITAL ORGANS: No gross abnormality seen. LYMPH NODES: No greater than 1cm abdominal or pelvic lymph nodes are appreciated. OSSEOUS STRUCTURES: Dextroconvex scoliosis centered at L1-L2 level. Moderate multilevel spurring. Vac uum disc phenomenon L5-S1 level. OTHER: [id number] diffuse soft tissue anasarca over the abdomen and pelvis laterally. Trace binu e fluid in pelvis to left of midline near axial image 76. Fairly severe calcified plaque of the aorta extends into branch vessels. IMPRESSION: [id number] diffuse soft tissue anasarca with small bilateral pleural effusions and trace pelvic ascites suggests desire fluid overload state. No well-formed thick walled fluid collection to suggest abscess identified. Acute Source of bacteremia not identified.
[2019-05-08 13:57] VITALS: BMI 30.7
[2019-05-08] MEDS ORDERED: GENTAMICIN TROUGH DUE 1 EACH MISC MISCELLANE ONE (15:00)
--- NOTE | 2019-05-08 17:15 | P.PN ---
Subjective Progress Note Date: 05/08/19 The pleasant 68-year-old white male was admitted for multiple medical problems. He's currently on BiPAP maintaining saturations currently under investigation for acute metabolic encephalopathy falls and comminuted fracture of his clavicle forming an abscess-like mass. Today he supposed to undergo drainage of the left clavicle 5 cm area of concern. 05/06/2019 yesterday underwent ultrasound guided needle biopsy of left clavicle mass with only a droplet sanguinous drainage aspirated . Cytology pend ing.currently off BiPAP, maintaining O2 sats in the high 90s on 2 L nasal cannula. Telemetry sinus rhythm. Maintained on CIWA protocol, banana bag. Afebrile, WBC 12.5, blood cultures 2 reporting enterococcus D bacteremia with follow-up preliminary blood cultures negative. Continues on vancomycin, Unasyn. Creatinine 0.59. Sodium 1:30. CRP elevated, 190.3. Brain MRI pending. Denies chest pain, palpitations or shortness of breath. 05/07/2019 mildly agitated/restless related to being NPO, scheduled for LINDSAY today. Required Haldol during the night. Continues on CIWA protocol. Significant other at bedside. Telemetry sinus rhythm. VSS. Afebrile, follow-up blood cultures reporting enterococcus group D. continues on antibiotics as per ID .Maintaining O2 sats in the 90s on 2 L nasal cannula. Hemoglobin 10.5, sodium improving, 1:32. 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 05/08/2019 sensorium significantly improved, much more alert today. Underwent LINDSAY yesterday reporting evidence of vegetation on the prostatic aortic valve in combination with positive blood cultures confirming infective endocarditis. Antibiotics further adjusted to ampicillin with gentamicin .creatinine 0.56. Evaluated by cardiothoracic surgery , no surgical intervention recommended at this time. Afebrile, WBC 12. Denies chest pain, palpitations or shortness of breath. Denies abdominal pain. Objective - Vital Signs Vital signs: Vital Signs Temp 97.7 F 05/08/19 08:00 Pulse 87 05/08/19 08:01 Resp 26 H 05/08/19 08:00 BP 110/63 05/08/19 08:00 Pulse Ox 96 05/08/19 08:00 Intake & Output 05/07/19 05/08/19 05/08/19 18:59 06:59 18:59 Intake Total 1800 1600 730 Output Total 1256 1410 180 Balance 544 190 550 Weight 94.4 kg Intake: IV 1800 1600 250 0.9% NaCl with KCl 20 Meq 550 600 100 /l 1,000 ml @ 50 mls/hr IV .[id number] DELISA with Mvi, Adult No.4 with Vit K 10 ml with Thiamine 100 mg with Folic Acid 1 mg Rx#: [id number] Ampicillin 2,000 mg In 100 300 Sodium Chloride 0.9% 100 ml @ 200 mls/hr IVPB Q4H [facility] Rx#:[id number] Ampicillin-Sulbactam 3 gm 200 In Sodium Chloride 0.9% 100 ml @ 200 mls/hr IVPB Q6H [facility] Rx#:[id number] Gentamicin in NaCl Iso- 100 100 100 Osm Pmx 80 mg In Saline 1 100ml.bag @ 100 mls/hr IVPB Q8HR [facility] Rx#: [id number] Sodium Chloride 0.9% 1, 600 600 50 000 ml @ 50 mls/hr IV . Q20H [facility] Rx#:[id number] Vancomycin 1,500 mg In 250 Sodium Chloride 0.9% 250 ml @ 125 mls/hr IVPB Q12H [facility] Rx#:[id number] Oral 480 Output: Urine 1256 1410 180 Other: Voiding Method Indwelling Catheter Indwelling Catheter Indwelling Catheter - Exam GENERAL: Sitting up in bed, much more alert today ,no acute distress alert and oriented 3 HEENT: Head is atraumatic, normocephalic. Pupils are equal, round, and reactive to light. Sclerae anicteric. Conjunctivae are clear. Mucus membranes of the mouth are dry. Neck is supple. RESPIRATORY: Decreased breath sounds to auscultation. Expiratory wheezing CARDIOVASCULAR: Regular rate and rhythm. Positive for systolic murmur auscultated. GASTROINTESTINAL: No distention noted. Abdomen soft and round. Normal active bowel sounds auscultated x 4 quadrants. No pain or tenderness noted upon palpation. INTEGUMENTARY: No cyanosis. No jaundice. No rashes noted. No cellulitis noted. EXTREMITIES: 2+ peripheral pulses. Left upper sternal clavicular area tenderness noted.. No calf tenderness noted. NEUROLOGIC: Confusion and lack of appropriate answering commands. A & O X 3. PSYCHIATRIC: Confused and lethargic during our examination. Appropriate affect. Impaired judgement and insight. Microbiology 05/04/19 04:40 Blood Blood Culture Gram Stain - Final 05/04/19 04:40 Blood Blood Culture - Final Enterococcus faecalis 05/04/19 17:35 Blood Blood Culture Gram Stain - Final 05/04/19 17:35 Blood Blood Culture - Final Enterococcus faecalis 05/04/19 17:20 Blood Blood Culture Gram Stain - Final 05/04/19 17:20 Blood Blood Culture - Final Enterococcus faecalis 05/06/19 05:37 Blood Blood Culture Gram Stain - Final 05/06/19 05:37 Blood Blood Culture - Final Enterococcus faecalis 05/07/19 05:15 Blood Blood Culture Gram Stain - Preliminary 05/07/19 05:15 Blood Blood Culture - Preliminary Group D Enterococcus 05/05/19 11:56 Blood Blood Culture Gram Stain - Final 05/05/19 11:56 Blood Blood Culture - Final Enterococcus faecalis 05/05/19 15:50 Other - Other Gram Stain - Final 05/05/19 15:50 Other - Other Wound Culture - Final 05/07/19 05:15 Blood Blood Culture - Final 05/06/19 05:37 Blood Blood Culture - Final 05/05/19 11:56 Blood Blood Culture - Final 05/04/19 17:20 Blood Blood Culture - Final 05/04/19 17:35 Blood Blood Culture - Final 05/04/19 04:40 Blood Blood Culture - Final - Labs CBC & Chem 7: 05/08/19 05:31 05/08/19 05:31 Labs: Abnormal Lab Results - Last 24 Hours (Table) 05/07/19 05/07/19 05/07/19 Range/Units 11:54 16:55 20:19 WBC (3.8-10.6) k/uL RBC (4.30-5.90) m/uL Hgb (13.0-17.5) gm/dL Hct (39.0-53.0) % Plt Count (150-450) k/uL Neutrophils # (1.3-7.7) k/uL Lymphocytes # (1.0-4.8) k/uL Sodium (137-145) mmol/L Creatinine (0.66-1.25) mg/dL Glucose (74-99) mg/dL POC Glucose (mg/dL) 171 H 165 H 144 H (75-99) mg/dL Calcium (8.4-10.2) mg/dL 05/08/19 05/08/19 05/08/19 Range/Units 05:31 05:31 06:16 WBC 12.0 H (3.8-10.6) k/uL RBC 3.44 L (4.30-5.90) m/uL Hgb 10.9 L (13.0-17.5) gm/dL Hct 33.8 L (39.0-53.0) % Plt Count 125 L (150-450) k/uL Neutrophils # 10.2 H (1.3-7.7) k/uL Lymphocytes # 0.9 L (1.0-4.8) k/uL Sodium 134 L (137-145) mmol/L Creatinine 0.56 L (0.66-1.25) mg/dL Glucose 117 H (74-99) mg/dL POC Glucose (mg/dL) 128 H (75-99) mg/dL Calcium 8.0 L (8.4-10.2) mg/dL Microbiology - Last 24 Hours (Table) 05/05/19 11:56 Blood Culture Gram Stain - Final Blood Blood Culture - Final Enterococcus faecalis 05/05/19 15:50 Gram Stain - Final Other - Other Wound Culture - Final 05/07/19 05:15 Blood Culture Gram Stain - Preliminary Blood 05/07/19 05:15 Blood Culture - Final Blood 05/06/19 05:37 Blood Culture Gram Stain - Preliminary Blood Blood Culture - Preliminary Group D Enterococcus Assessment and Plan Assessment: -Sepsis, present on admission secondary to enterococcus group D bacteremia, secondary to infective aortic valve endocarditis, LINDSAY reporting 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 - Left Clavicle fracture secondary to fall with abscess, possible osteomyelitis, secondary to diabetes mellitus, status post unsuccessful aspiration biopsy Current Visit: Yes Status: Acute Code(s): S42.009A - FRACTURE OF UNSP PART OF UNSP CLAVICLE, INIT FOR CLOS FX SNOMED Code(s): 00322706 -Acute hypoxic Respiratory failure status post BiPAP Current Visit: Yes Status: Acute Code(s): J96.90 - RESPIRATORY FAILURE, UNSP, UNSP W HYPOXIA OR HYPERCAPNIA SNOMED Code(s): 851691426 - history of Aortic valve replaced, bioprosthetic Current Visit: No Status: Acute Code(s): Z95.2 - PRESENCE OF PROSTHETIC HEART VALVE SNOMED Code(s): 5265865258769 - Diabetes type 2, controlled Current Visit: Yes Status: Acute Code(s): E11.9 - TYPE 2 DIABETES MELLITUS WITHOUT COMPLICATIONS SNOMED Code(s): 96082108 -Elevated troponin level Current Visit: Yes Status: Acute Code(s): R79.89 - OTHER SPECIFIED ABNORMAL FINDINGS OF BLOOD CHEMISTRY SNOMED Code(s): 858232275 -Acute Hyponatremia -EtOH abuse, on CIWA protocol -Numerous bilateral acute and subacute lacunar infarcts in supratentorial and infratentorial white matter, suspicious for embolic disease. -Mild protein calorie malnutrition -Anemia of chronic disease Plan: Continue on current medication regime ,monitoring and symptomatic treatment. Maintain IV fluid hydration,CIWA protocol. CT of abdomen and pelvis ordered, pending.repeat blood cultures in progress, IV antibiotics as per ID. Prognosis guarded given multiple complex medical issues. The impression and plan of care has been dictated as directed. : I performed a history and examination of this patient, discussed the same with the dictator. I agree with the dictator's note ,documented as a scribe. Any additional findings or plans will be noted.
[2019-05-08] MEDS ORDERED: GENTAMICIN PEAK DUE 1 EACH MISC MISCELLANE ONE (17:30)
[2019-05-08 17:31] LABS: Glucose,Whole Blood 182 mg/dL (75-99)
--- NOTE | 2019-05-08 17:49 | P.CNNES ---
History of Present Illness Consult date: 05/08/19 Requesting physician: Krissy Singh Reason for Consult: Metabolic encephalopathy, abnormal brain MRI History of Present Illness: Patient is a 68-year-old male admitted on 05/04/2019 for shortness of breath, getting worse over the past few hours prior to arrival. He had fell secondary to losing balance prior to arrival. Patient had productive cough, fever and was diagnosed with Enterococcus faecalis bacteremia. Patient's also was present, who states that patient has been feeling sick for last 1 month. He was in [place]. He has developed abscess in the left clavicular region. Patient has subsequently developed bacterial endocarditis. Patient was noted to have multiple blood cultures, positive for enterococcus faecalis. Patient underwent MRI of the brain for some mental confusion, and left ptosis. It revealed numerous bilateral acute and subacute lacunar infarcts in both supratentorial and infratentorial white matter, suggestive of embolic disease. Patient underwent LINDSAY on 05/07/2019 showed evidence of a vegetation attached to the prosthetic aortic valve and with positive blood cultures. 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 Patient's valve is stable. There is no aortic regurgitation. There is no perivalvular leak. Patient denies any significant headache. MRI of the brain with and without contrast from 05/06/2019 revealed numerous bilateral acute and subacute lacunar infarcts in both supratentorial and infratentorial white matter, therefore suspicion for embolic disease. Motion artifact limits post contrast imaging. No gross evidence of abnormal intracranial enhancement. Suboptimal visualization of enhancement of middle cerebral arteries. MRA is recommended to evaluate for stenosis. Partial opacification of bilateral mastoid air cells. Correlate clinically for mastoiditis. Patient's computed tomography scan of abdomen and pelvis from today showed mild to moderate diffuse soft tissue anasarca with small bilateral pleural effusions and trace pelvic ascites suggest fluid overload state. No abscess. Patient has history of type 2 diabetes, aortic valve replacement/bioprosthetic aortic valve in 2015. He has hypertension, hyperlipidemia, gout and COPD. Review of Systems Patient denies headache. Complains of some double vision denies any hoarseness or throat dysphagia. Denies any numbness tingling focal weakness. Patient does have some shortness of breath and cough. He has pain in the left shoulder/clavicular region. Past Medical History Past Medical History: Cancer, Diabetes Mellitus, Hyperlipidemia, Hypertension, Osteoarthritis (OA) Additional Past Medical History / Comment(s): history of skin cancer, history of gout, hyperlipidemia, hypertension, OA, diabetes mellitus History of Any Multi-Drug Resistant Organisms: None Reported Past Surgical History: Heart Catheterization, Orthopedic Surgery Additional Past Surgical History / Comment(s): ORIF rt hand and ankle, aortic valve replacement #21 Trifecta bioprosthetic valve placed June 2014 Past Anesthesia/Blood Transfusion Reactions: No Reported Reaction Past Psychological History: No Psychological Hx Reported Smoking Status: Former smoker Past Alcohol Use History: Daily Additional Past Alcohol Use History / Comment(s): started smoking at age 15 quit at age 26 smoked 3ppd Past Drug Use History: None Reported - Past Family History Father Family Medical History: Cancer Medications and Allergies Home Medications Medication Instructions Recorded Confirmed Type Lisinopril 15 mg PO HS 06/09/14 05/04/19 History Zolpidem [Ambien] 10 mg PO HS 06/11/14 05/04/19 History Magnesium Oxide [Mag-Ox] 400 mg PO DAILY 07/13/14 05/04/19 History Metoprolol Tartrate 12.5 mg PO BID #60 tab 07/18/14 05/04/19 Rx Allopurinol [Zyloprim] 100 mg PO DAILY 07/25/17 05/04/19 History Aspirin EC [Ecotrin Low Dose] 81 mg PO DAILY 07/25/17 05/04/19 History Cetirizine HCl [Zyrtec] 10 mg PO DAILY 07/25/17 05/04/19 History Furosemide [Lasix] 20 mg PO DAILY 07/25/17 05/04/19 History Rosuvastatin [Crestor] 10 mg PO HS 07/25/17 05/04/19 History Albuterol Sulfate [Ventolin HFA] 2 puff INHALATION RT-QID PRN 05/04/19 05/04/19 History Budesonide [Pulmicort] 0.5 mg INHALATION RT-BID 05/04/19 05/04/19 History Empagliflozin [Jardiance] 10 mg PO DAILY 05/04/19 05/04/19 History HYDROcodone/APAP 5-325MG [Jewell 1 tab PO Q4H PRN 05/04/19 05/04/19 History 5-325] Montelukast [Singulair] 10 mg PO HS 05/04/19 05/04/19 History glipiZIDE [Glucotrol] 10 mg PO AC-BID 05/04/19 05/04/19 History predniSONE See Taper PO DAILY 05/04/19 05/04/19 History Allergies Allergy/AdvReac Type Severity Reaction Status Date / Time No Known Allergies Allergy Verified 11/11/18 08:29 Physical Examination - Vital Signs Vital Signs: Vital Signs Temp Pulse Resp BP Pulse Ox 05/08/19 15:55 76 97 05/08/19 15:00 85 22 123/64 99 05/08/19 14:00 94 29 H 113/73 86 L 05/08/19 13:00 81 22 111/65 96 05/08/19 12:25 75 05/08/19 12:13 74 05/08/19 12:00 97.7 F 75 22 125/79 98 05/08/19 11:00 76 18 108/74 99 05/08/19 10:00 82 25 H 112/78 98 05/08/19 09:00 93 28 H 108/69 95 05/08/19 08:01 87 05/08/19 08:00 97.7 F 88 26 H 110/63 96 05/08/19 07:48 91 05/08/19 07:00 87 23 125/78 97 05/08/19 06:00 92 22 121/65 97 05/08/19 05:00 80 19 116/71 95 05/08/19 04:00 97.6 F 76 18 131/71 97 05/08/19 03:00 80 22 113/65 100 05/08/19 02:00 74 17 135/66 98 05/08/19 01:00 77 18 121/72 96 05/08/19 00:00 97.4 F L 75 20 110/73 95 05/07/19 23:00 77 16 99/63 97 05/07/19 22:00 87 27 H 116/64 96 05/07/19 21:33 85 05/07/19 21:14 78 05/07/19 21:00 71 16 130/73 97 05/07/19 20:00 97.8 F 80 17 106/63 97 05/07/19 19:00 76 16 93/62 98 05/07/19 18:00 80 17 115/63 94 L 05/07/19 17:00 79 19 113/67 94 L 05/07/19 16:55 80 05/07/19 16:46 82 05/07/19 16:00 98.2 F 75 17 111/66 97 Intake and Output 05/08/19 05/08/19 05/08/19 06:59 14:59 22:59 Intake Total 1100 2870 Output Total 925 1055 Balance 175 1815 Intake: IV 1100 950 0.9% NaCl with KCl 20 Meq 400 350 /l 1,000 ml @ 50 mls/hr IV .[id number] DELISA with Mvi, Adult No.4 with Vit K 10 ml with Thiamine 100 mg with Folic Acid 1 mg Rx#: [id number] Ampicillin 2,000 mg In 200 200 Sodium Chloride 0.9% 100 ml @ 200 mls/hr IVPB Q4H DELISA Rx#:[id number] Gentamicin in NaCl Iso- 100 100 Osm Pmx 80 mg In Saline 1 100ml.bag @ 100 mls/hr IVPB Q8HR DELISA Rx#: [id number] Sodium Chloride 0.9% 1, 400 300 000 ml @ 50 mls/hr IV . Q20H DELISA Rx#:[id number] Oral 1920 Output: Urine 925 1055 Other: Voiding Method Indwelling Catheter Indwelling Catheter Weight 94.4 kg 94.4 kg On examination patient is an elderly male, who appears in mild short of breath. He is alert and awake, appears mildly delirious. Speech is mildly hoarse, but no aphasia or dysarthria. Patient states it is March and the year is 2019. He states he is in [facility] in [facility]. He knows name of the current president. On cranial nerve examination pupils are round and reacting to light, visual braden are full. Extraocular muscles revealed probable left TUAN. Patient does have slightly disconjugate eye movements. Did not have any diplopia on either sides. He has mild left ptosis left side. His face is symmetric and tongue protrudes the midline. On muscle strength testing, both deltoids are weak, left from the abscess, and right from probable shoulder orthopedic issues. Otherwise the strength appears normal in the biceps triceps and gypsum block setter hips and knees and ankles. Patient's reflexes are 1 in the upper limbs, 2+ at the right knee 1 on the left knee. Ankles are 1 bilaterally and plantar is probable up on the right and down on left. Sensory touch is equal. No obvious ataxia for [id number], tone and bulk of muscles normal. Gait deferred. No obvious bruit, S1 and S2 audible. Patient has mild peripheral edema. Results - Laboratory Findings CBC and BMP: 05/09/19 05:40 05/09/19 05:40 Abnormal Lab Findings: Abnormal Labs 05/04/19 05/04/19 05/04/19 04:40 04:40 04:40 WBC 10.8 H RBC Hgb Hct Plt Count 145 L Neutrophils # 10.2 H Neutrophils # (Manual) Lymphocytes # 0.3 L ESR APTT 20.5 L D-Dimer ABG pCO2 ABG pO2 ABG HCO3 ABG O2 Saturation VBG pCO2 VBG HCO3 Sodium 127 L Potassium 5.3 H Chloride 90 L Carbon Dioxide BUN 44 H Creatinine Glucose 407 H POC Glucose (mg/dL) Plasma Lactic Acid Ross Calcium Troponin I C-Reactive Protein Total Protein Albumin 3.0 L Procalcitonin Urine Glucose (UA) Urine Ketones Urine Blood Urine RBC Urine Bacteria Urine Mucus 05/04/19 05/04/19 05/04/19 04:40 04:40 04:40 WBC RBC Hgb Hct Plt Count Neutrophils # Neutrophils # (Manual) Lymphocytes # ESR APTT D-Dimer 12.41 H ABG pCO2 ABG pO2 ABG HCO3 ABG O2 Saturation VBG pCO2 VBG HCO3 Sodium Potassium Chloride Carbon Dioxide BUN Creatinine Glucose POC Glucose (mg/dL) Plasma Lactic Acid Ross 3.2 H* Calcium Troponin I 0.657 H* C-Reactive Protein Total Protein Albumin Procalcitonin Urine Glucose (UA) Urine Ketones Urine Blood Urine RBC Urine Bacteria Urine Mucus 05/04/19 05/04/19 05/04/19 04:40 09:23 10:56 WBC RBC Hgb Hct Plt Count Neutrophils # Neutrophils # (Manual) Lymphocytes # ESR APTT D-Dimer ABG pCO2 ABG pO2 ABG HCO3 ABG O2 Saturation VBG pCO2 34 L VBG HCO3 18 L Sodium Potassium Chloride Carbon Dioxide BUN Creatinine Glucose POC Glucose (mg/dL) 394 H Plasma Lactic Acid Ross Calcium Troponin I C-Reactive Protein Total Protein Albumin Procalcitonin 3.25 H Urine Glucose (UA) Urine Ketones Urine Blood Urine RBC Urine Bacteria Urine Mucus 05/04/19 05/04/19 05/04/19 11:35 16:47 17:11 WBC RBC Hgb Hct Plt Count Neutrophils # Neutrophils # (Manual) Lymphocytes # ESR APTT D-Dimer ABG pCO2 30 L ABG pO2 ABG HCO3 19 L ABG O2 Saturation 97.6 H VBG pCO2 VBG HCO3 Sodium Potassium Chloride Carbon Dioxide BUN Creatinine Glucose POC Glucose (mg/dL) 379 H 419 H Plasma Lactic Acid Ross Calcium Troponin I C-Reactive Protein Total Protein Albumin Procalcitonin Urine Glucose (UA) Urine Ketones Urine Blood Urine RBC Urine Bacteria Urine Mucus 05/04/19 05/04/19 05/04/19 18:41 20:00 20:00 WBC RBC Hgb Hct Plt Count Neutrophils # Neutrophils # (Manual) Lymphocytes # ESR APTT D-Dimer ABG pCO2 ABG pO2 ABG HCO3 ABG O2 Saturation VBG pCO2 VBG HCO3 Sodium 126 L Potassium Chloride 97 L Carbon Dioxide 17 L BUN 52 H Creatinine Glucose 393 H POC Glucose (mg/dL) 382 H Plasma Lactic Acid Ross Calcium Troponin I C-Reactive Protein Total Protein 6.2 L Albumin 2.6 L Procalcitonin Urine Glucose (UA) 4+ H Urine Ketones 1+ H Urine Blood Small H Urine RBC 8 H Urine Bacteria Rare H Urine Mucus Rare H 05/04/19 05/04/19 05/04/19 20:28 21:04 21:28 WBC RBC Hgb Hct Plt Count Neutrophils # Neutrophils # (Manual) Lymphocytes # ESR APTT D-Dimer ABG pCO2 ABG pO2 ABG HCO3 ABG O2 Saturation VBG pCO2 VBG HCO3 Sodium Potassium Chloride Carbon Dioxide BUN Creatinine Glucose POC Glucose (mg/dL) 318 H 256 H 198 H Plasma Lactic Acid Ross Calcium Troponin I C-Reactive Protein Total Protein Albumin Procalcitonin Urine Glucose (UA) Urine Ketones Urine Blood Urine RBC Urine Bacteria Urine Mucus 05/04/19 05/05/19 05/05/19 22:29 00:24 02:26 WBC RBC Hgb Hct Plt Count Neutrophils # Neutrophils # (Manual) Lymphocytes # ESR APTT D-Dimer ABG pCO2 ABG pO2 ABG HCO3 ABG O2 Saturation VBG pCO2 VBG HCO3 Sodium Potassium Chloride Carbon Dioxide BUN Creatinine Glucose POC Glucose (mg/dL) 161 H 138 H 203 H Plasma Lactic Acid Ross Calcium Troponin I C-Reactive Protein Total Protein Albumin Procalcitonin Urine Glucose (UA) Urine Ketones Urine Blood Urine RBC Urine Bacteria Urine Mucus 03/11/1505/05/19 05/05/19 04:24 06:22 08:42 WBC RBC Hgb Hct Plt Count Neutrophils # Neutrophils # (Manual) Lymphocytes # ESR APTT D-Dimer ABG pCO2 ABG pO2 ABG HCO3 ABG O2 Saturation VBG pCO2 VBG HCO3 Sodium Potassium Chloride Carbon Dioxide BUN Creatinine Glucose POC Glucose (mg/dL) 178 H 150 H 142 H Plasma Lactic Acid Ross Calcium Troponin I C-Reactive Protein Total Protein Albumin Procalcitonin Urine Glucose (UA) Urine Ketones Urine Blood Urine RBC Urine Bacteria Urine Mucus 05/05/19 05/05/19 05/05/19 08:46 08:46 08:46 WBC RBC 3.34 L Hgb 10.9 L D Hct 32.1 L Plt Count 94 L Neutrophils # Neutrophils # (Manual) 8.70 H Lymphocytes # ESR 103 H APTT 39.3 H D-Dimer ABG pCO2 ABG pO2 ABG HCO3 ABG O2 Saturation VBG pCO2 VBG HCO3 Sodium 129 L Potassium Chloride Carbon Dioxide 21 L BUN 40 H Creatinine Glucose 110 H POC Glucose (mg/dL) Plasma Lactic Acid Ross Calcium 7.5 L Troponin I C-Reactive Protein 201.6 H Total Protein Albumin Procalcitonin Urine Glucose (UA) Urine Ketones Urine Blood Urine RBC Urine Bacteria Urine Mucus 05/05/19 05/05/19 05/05/19 08:46 10:45 11:51 WBC RBC Hgb Hct Plt Count Neutrophils # Neutrophils # (Manual) Lymphocytes # ESR APTT D-Dimer ABG pCO2 ABG pO2 ABG HCO3 ABG O2 Saturation VBG pCO2 VBG HCO3 Sodium Potassium Chloride Carbon Dioxide BUN Creatinine Glucose POC Glucose (mg/dL) 133 H 127 H Plasma Lactic Acid Ross Calcium Troponin I 0.359 H* C-Reactive Protein Total Protein Albumin Procalcitonin Urine Glucose (UA) Urine Ketones Urine Blood Urine RBC Urine Bacteria Urine Mucus 05/05/19 05/05/19 05/05/19 14:04 14:18 15:16 WBC RBC Hgb Hct Plt Count Neutrophils # Neutrophils # (Manual) Lymphocytes # ESR APTT D-Dimer ABG pCO2 ABG pO2 119 H ABG HCO3 ABG O2 Saturation 98.7 H VBG pCO2 VBG HCO3 Sodium Potassium Chloride Carbon Dioxide BUN Creatinine Glucose POC Glucose (mg/dL) 130 H Plasma Lactic Acid Ross Calcium Troponin I 0.526 H* C-Reactive Protein Total Protein Albumin Procalcitonin Urine Glucose (UA) Urine Ketones Urine Blood Urine RBC Urine Bacteria Urine Mucus 05/05/19 05/05/19 05/05/19 16:53 19:53 20:28 WBC RBC Hgb Hct Plt Count Neutrophils # Neutrophils # (Manual) Lymphocytes # ESR APTT D-Dimer ABG pCO2 ABG pO2 ABG HCO3 ABG O2 Saturation VBG pCO2 VBG HCO3 Sodium Potassium Chloride Carbon Dioxide BUN Creatinine Glucose POC Glucose (mg/dL) 133 H 194 H Plasma Lactic Acid Ross Calcium Troponin I 0.551 H* C-Reactive Protein Total Protein Albumin Procalcitonin Urine Glucose (UA) Urine Ketones Urine Blood Urine RBC Urine Bacteria Urine Mucus 05/06/19 05/06/19 05/06/19 05:37 05:37 05:41 WBC 12.5 H RBC 3.16 L Hgb 10.4 L Hct 31.0 L Plt Count 82 L Neutrophils # 10.9 H Neutrophils # (Manual) Lymphocytes # 0.8 L ESR 107 H APTT D-Dimer ABG pCO2 ABG pO2 ABG HCO3 ABG O2 Saturation VBG pCO2 VBG HCO3 Sodium 130 L Potassium Chloride Carbon Dioxide 20 L BUN 22 H Creatinine 0.59 L Glucose 142 H POC Glucose (mg/dL) 151 H Plasma Lactic Acid Ross Calcium 7.4 L Troponin I C-Reactive Protein 190.3 H Total Protein Albumin Procalcitonin Urine Glucose (UA) Urine Ketones Urine Blood Urine RBC Urine Bacteria Urine Mucus 05/06/19 05/06/19 05/06/19 12:03 17:21 19:55 WBC RBC Hgb Hct Plt Count Neutrophils # Neutrophils # (Manual) Lymphocytes # ESR APTT D-Dimer ABG pCO2 ABG pO2 ABG HCO3 ABG O2 Saturation VBG pCO2 VBG HCO3 Sodium Potassium Chloride Carbon Dioxide BUN Creatinine Glucose POC Glucose (mg/dL) 186 H 150 H 194 H Plasma Lactic Acid Ross Calcium Troponin I C-Reactive Protein Total Protein Albumin Procalcitonin Urine Glucose (UA) Urine Ketones Urine Blood Urine RBC Urine Bacteria Urine Mucus 05/07/19 05/07/19 05/07/19 05:15 05:15 06:28 WBC RBC 3.29 L Hgb 10.5 L Hct 32.0 L Plt Count 91 L Neutrophils # 8.5 H Neutrophils # (Manual) Lymphocytes # 0.9 L ESR APTT D-Dimer ABG pCO2 ABG pO2 ABG HCO3 ABG O2 Saturation VBG pCO2 VBG HCO3 Sodium 132 L Potassium Chloride Carbon Dioxide 20 L BUN Creatinine 0.57 L Glucose 163 H POC Glucose (mg/dL) 160 H Plasma Lactic Acid Ross Calcium 7.7 L Troponin I C-Reactive Protein Total Protein Albumin Procalcitonin Urine Glucose (UA) Urine Ketones Urine Blood Urine RBC Urine Bacteria Urine Mucus 05/07/19 05/07/19 05/07/19 11:54 16:55 20:19 WBC RBC Hgb Hct Plt Count Neutrophils # Neutrophils # (Manual) Lymphocytes # ESR APTT D-Dimer ABG pCO2 ABG pO2 ABG HCO3 ABG O2 Saturation VBG pCO2 VBG HCO3 Sodium Potassium Chloride Carbon Dioxide BUN Creatinine Glucose POC Glucose (mg/dL) 171 H 165 H 144 H Plasma Lactic Acid Ross Calcium Troponin I C-Reactive Protein Total Protein Albumin Procalcitonin Urine Glucose (UA) Urine Ketones Urine Blood Urine RBC Urine Bacteria Urine Mucus 05/08/19 05/08/19 05/08/19 05:31 05:31 06:16 WBC 12.0 H RBC 3.44 L Hgb 10.9 L Hct 33.8 L Plt Count 125 L Neutrophils # 10.2 H Neutrophils # (Manual) Lymphocytes # 0.9 L ESR APTT D-Dimer ABG pCO2 ABG pO2 ABG HCO3 ABG O2 Saturation VBG pCO2 VBG HCO3 Sodium 134 L Potassium Chloride Carbon Dioxide BUN Creatinine 0.56 L Glucose 117 H POC Glucose (mg/dL) 128 H Plasma Lactic Acid Ross Calcium 8.0 L Troponin I C-Reactive Protein Total Protein Albumin Procalcitonin Urine Glucose (UA) Urine Ketones Urine Blood Urine RBC Urine Bacteria Urine Mucus 05/08/19 13:17 WBC RBC Hgb Hct Plt Count Neutrophils # Neutrophils # (Manual) Lymphocytes # ESR APTT D-Dimer ABG pCO2 ABG pO2 ABG HCO3 ABG O2 Saturation VBG pCO2 VBG HCO3 Sodium Potassium Chloride Carbon Dioxide BUN Creatinine Glucose POC Glucose (mg/dL) 181 H Plasma Lactic Acid Ross Calcium Troponin I C-Reactive Protein Total Protein Albumin Procalcitonin Urine Glucose (UA) Urine Ketones Urine Blood Urine RBC Urine Bacteria Urine Mucus Assessment and Plan Assessment: * 68-year-old male admitted with acute bacterial endocarditis with septicemia, and evidence of septic emboli to the brain in bilateral anterior and posterior circulation. * History of valvular heart disease status post bioprosthetic aortic valve replacement in 2015 * Diabetes * Hypertension * Dyslipidemia * History of alcoholism. Plan: * Agree with continuing aspirin 81 mg daily. * Aggressive control of infection and bacterial endocarditis as per infectious disease/critical care * We will follow clinically.
[2019-05-08 21:01] LABS: Glucose,Whole Blood 142 mg/dL (75-99)
--- NOTE | 2019-05-08 21:04 | PN ---
PROGRESS NOTE DATE OF SERVICE: 05/08/2019 REASON FOR FOLLOW UP: Enterococcus faecalis bacteremia, aortic wall endocarditis. INTERIM HISTORY: The patient is currently afebrile, has been breathing comfortably. Denies having any chest pain or cough. No abdominal pain or any diarrhea. PHYSICAL EXAMINATION: Blood pressure 106/70 with a pulse of 93, temperature 98.1. He is 96% on room air. General description is an elderly male lying in bed in no distress. Respiratory system: Unlabored breathing, clear to auscultation anteriorly. Heart is S1, S2. Regular rate and rhythm. Abdomen soft, no tenderness. LABORATORY DATA: Hemoglobin 10.1, white count 1000. BUN of 13, creatinine 0.56. DIAGNOSTIC IMPRESSION AND PLAN: Patient with enterococcus bacteremia secondary to the aortic wall endocarditis. The patient had adjusted to ampicillin and gentamicin yesterday, to continue. We will monitor clinical course closely. Once blood culture negative at 72 hours, antibiotic to be adjusted. PICC line will be placed for outpatient antibiotic therapy and monitor clinical course closely. Urine was negative. CT abdominal pain is negative. MMODL / IJN: [id number] /
[2019-05-08] MEDS: LISINOPRIL 10 MG TAB PO SCH (21:10)
[2019-05-08] MEDS: MONTELUKAST 10 MG TAB PO SCH (21:11)
[2019-05-09] MEDS: AMPICILLIN 2,000 MG in SODIUM CHLORIDE 0.9% 100 ML IVPB SCH ×6 (00:31→21:38)
[2019-05-09] MEDS: HYDROcodone/APAP 5-325MG 1 EACH TAB PO PRN ×3 (04:37→16:04)
[2019-05-09] MEDS: SODIUM CHLORIDE 0.9% 1,000 ML IV SCH (04:38)
[2019-05-09] MEDS: 0.9% NACL WITH KCL 20 MEQ/L 1,000 ML with MVI, ADULT NO.4 WITH VIT K 10 ML, THIAMINE 10... IV SCH ×4 (05:39)
[2019-05-09] MEDS: GENTAMICIN IN NACL ISO-OSM PMX 80 MG in SALINE 1 100ML.BAG IVPB SCH ×2 (05:44→17:06)
[2019-05-09] MEDS: BUDESONIDE 0.5 MG/2 ML NEBU INHALATION SCH ×2 (07:23→20:05)
[2019-05-09] MEDS: IPRATROPIUM-ALBUTEROL 3 ML NEB INHALATION SCH ×4 (07:23→20:05)
[2019-05-09] MEDS: INSULIN ASPART (NovoLOG) 100 UNIT/ML VIAL SQ SCH ×7 (07:33→21:37)
[2019-05-09 07:34] LABS: Glucose,Whole Blood 123 mg/dL (75-99)
--- NOTE | 2019-05-09 07:39 | XR ---
EXAMINATION TYPE: XR chest 1V portable DATE OF EXAM: 05/09/2019 COMPARISON: 05/06/2019 HISTORY: Shortness of breath TECHNIQUE: Single frontal view of the chest is obtained. FINDINGS: There is basilar subsegmental consolidation and small effusions. Postoperative change note d in the hilum are prominent bilaterally. Mild central interstitial pattern seen. Biapical pleural th ickening. No pneumothorax. IMPRESSION: 1. Bilateral lower lobe infiltrate with small effusion correlate for mild CHF. Underlying infiltrate not excluded.
[2019-05-09 07:45] LABS: Basophils % (A) 0 %; Eosinophils # (A) 0.1 k/uL (0-0.7); Eosinophils % (A) 1 %; HCT 29.4 % (39.0-53.0); HGB 9.9 gm/dL (13.0-17.5); Lymphocytes % (A) 6 %; MCH 32.5 pg (25.0-35.0); MCHC 33.5 g/dL (31.0-37.0); MCV 96.9 fL (80.0-100.0); Mean Platelet Volume 10.2; Monocytes # (A) 0.4 k/uL (0-1.0); Monocytes % (A) 3 %; Neutrophils # (A) 14.5 k/uL (1.3-7.7); Neutrophils % (A) 89 %; Platelet Count 161 k/uL (150-450); RBC 3.03 m/uL (4.30-5.90); RDW 13.6 % (11.5-15.5); WBC 16.3 k/uL (3.8-10.6)
[2019-05-09 07:49] LABS: African American GFR (CKD) >90 (>60 ml/min/1.73 sqM); Anion Gap 9 mmol/L; Blood Urea Nitrogen 15 mg/dL (9-20); Calcium 7.6 mg/dL (8.4-10.2); Carbon Dioxide 19 mmol/L (22-30); Chloride 102 mmol/L (98-107); Glucose 108 mg/dL (74-99); Non-African American GFR(CKD) >90 (>60 ml/min/1.73 sqM); Potassium 4.5 mmol/L (3.5-5.1); Sodium 130 mmol/L (137-145)
[2019-05-09] MEDS ORDERED: FUROSEMIDE 10 MG/ML 4 ML VIAL IV STA (08:12)
[2019-05-09] MEDS: FUROSEMIDE 20 MG TAB PO SCH (08:40)
[2019-05-09] MEDS: ATORVASTATIN 40 MG TAB PO SCH (08:46)
[2019-05-09] MEDS: ASPIRIN 81 MG PO SCH (08:46)
[2019-05-09] MEDS: ALLOPURINOL 100 MG TAB PO SCH (08:46)
[2019-05-09] MEDS: HEPARIN SODIUM,PORCINE 5,000 UNIT/ML 1 ML VIAL SQ SCH ×2 (08:47→21:37)
[2019-05-09] MEDS: METOPROLOL TARTRATE 25 MG TAB PO SCH ×2 (08:47→21:36)
[2019-05-09] MEDS: LORATADINE 10 MG TAB PO SCH (08:47)
[2019-05-09] MEDS: PANTOPRAZOLE 40 MG/10 ML VIAL IVP SCH (08:47)
[2019-05-09] MEDS: MAGNESIUM OXIDE 400 MG TAB PO SCH (08:47)
[2019-05-09] MEDS: THIAMINE 100 MG TAB PO SCH (08:47)
--- NOTE | 2019-05-09 10:46 | P.PN ---
Subjective Progress Note Date: 05/09/19 This is a pleasant 68-year-old male past medical history significant for valvular heart disease status post bioprosthetic aortic valve replacement in 2014, peripheral vascular disease status post aortic endarterectomy 2014, diabetes mellitus, hypertension and dyslipidemia. He admits to daily alcohol intake. 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 We have been asked to see in consultation for elevated troponin. He initially presented to the emergency department with symptoms of shortness of breath, cough and fall. He is unsure. It corresponding loss of consciousness. He states that he lost his balance falling on the left side of his body. He was noted to be febrile on admission with a temperature of 101.7. The patient states that he was sick since March 2019. Back then he was in [place]. On and off he was having fever. He was seen in [place] emergency department and he was given treatment and the exact treatment is not known to us at this point in time. The patient himself is a very poor historian. I think is lethargic and somewhat encephalopathic and is unable to volunteer detailed history. He came in to the hospital regarding these ongoing problems. The hospital, the patient was found to have a white cell count of 10.8. His initial lactic acid level was 3 and it dropped down to 1.0. Troponin was slightly positive at 0.657. ProBNP level was 4860. CT angiogram of the chest was done and was negative for pulmonary embolism. There was a soft tissue collection superior aspect of the left sternoclavicular joint at the level of the third and had with some tissue thickening and there is involvement of the sternum and there is also recommended the undisplaced fracture of the left clavicle. On examination, the patient is sore in the involved area without any significant erythema or warmth. For now he is on examination of Rocephin and Zithromax. He does have a cardiac murmur. He has a bioprosthetic aortic valve that was placed in 2014. On today's evaluation the patient is being seen in follow-up on 05/05/2019. The patient remains on a VATS with a tidal volume of 550. His current meds as the patient is at 10.6. He is pulling approximately 500 mL of tidal volume while being on this current moles. Overnight the patient became more restless and agitated. He apparently drinks and he is enjoying for around a week or 2 and he became confused. He was placed on the CIWA protocol and the patient was given Ativan where he received a total of 1.5 mg of Ativan. He remains on broad- spectrum antibiotics. He has been on a combination of Unasyn and vancomycin. Protocol troponin level is elevated. He was supposed to have a aspiration of the chest wall abscess/collection by interventional radiology. He was still seeking a consent from the significant other. Interventional radiology supposed to undergo this drainage of the possible chest wall abscess today once consent is obtained. On 05/06/2019 patient is seen in follow-up in intensive care unit, he is more arousable today, but remains confused, still somnolent, but opens eyes, and answers questions, but inattentive. Positive CAM ICU score. Off BiPAP support currently, he is on 2 L of oxygen and the pulse ox of 99 200%, he is afebrile, in sinus mechanism with a rate of 76, blood pressures 101/69, no vasoactive drips, maintenance IV fluids 0.9 normal saline at a rate of 100, patient is getting thiamine replacement and MVI replacement at a rate of 50 ML per hour. Patient has enterococcus D bacteremia on 2 separate blood cultures, follow blood cultures are negative thus far, he is on a culmination of Unasyn and vancomycin for antibiotics. Urinalysis without signs of infection, no significant cough or congestion, lung sounds reveal diminished breath sounds with mild wheezing. Today's labs reviewed, showing white blood cell count of 12.5, hemoglobin of 10.4, serum sodium 1:30, potassium is 4.2, CO2 is 20, BUN of 22 creatinine 0.59. Patient is producing adequate urine output, and the order of 100-200 ML per hour. Transthoracic echocardiogram did not show evidence of vegetation and showed adequately functioning bioprosthetic aortic valve. Yesterday patient underwent ultrasound-guided needle aspiration biopsy of the left sternoclavicular mass however there was only of droplet of blood aspirated. Cardiology is following, and will be requested to perform transesophageal echocardiogram to rule out possibility of endocarditis. On 05/07/2019 patient seen in follow-up in the intensive care unit, this morning he had his transesophageal echocardiogram by Dr. Babar Kulkarni, and patient was found to have vegetation on his bioprosthetic aortic valve. 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 Blood cultures from 05/04/2019 positive for Enterococcus faecalis, 05/05/2019 were positive for group D enterococcus. Patient is currently on Unasyn and vancomycin. This morning he seen in the intensive care unit, she is lethargic, but arouses to verbal stimuli, he still under the effect of fentanyl and Versed given for the transesophageal echocardiogram. Hemodynamically patient stable, he is in sinus mechanism with a rate of 74 BPM, blood pressures 104/65, patient is on 2 L of oxygen with a pulse ox of 96%, lung sounds reveal diminished breath sounds bilaterally, some scattered crackles, no wheezes, Pierce catheter is in place and patient is producing adequate amount of urine, patient is on IV fluids in the form of MVI at a rate of 50 ML per hour, and 0.9 normal saline at a rate of 50 ML per hour, he is on clear liquid diet yesterday, today we can advance his diet as tolerated once the patient is more awake. On 05/08/2019 patient seen in follow-up in the intensive care unit, more awake today, responsive, he is oriented 3, he remains on a combination of Unasyn and vancomycin for enterococcus faecalis bacteremia, follow-up blood cultures are showing gram-positive cocci in chains, final culture is pending, we'll repeat another set of blood cultures. Today's lab work has been reviewed showing blood cell count of 12.0, hemoglobin of 10.9, sodium is improving, up to 134, potassium is 4.9, BUN of 13 creatinine 0.56. ID service is following, CT surgery consultation was noted, no plans for surgical intervention, overall clinically seems to be improving, dyspneic with exertion, lung sounds reveal bibasilar crackles, denies any abdominal pain, denies any nausea or vomiting no diarrhea, he is tolerating oral intake, he is on 2 L of oxygen with a pulse ox of 96%. Patient was working with the physical therapy yesterday and he was up to the chair The patient is seen today 05/09/2019 in follow-up in the intensive care unit. Currently resting in bed. Awake, alert. He was having increasing shortness of breath, Given additional Lasix. Chest x-ray reveals bilateral lower lobe infiltrates with small effusion and mild CHF. Increased peripheral edema. IV from 100 ML's per hour to KVO. blood cultures positive for enterococcus. White count count 16.3. Hemoglobin 9.9. Creatinine 0.73. C. diff screen negative. Currently on ampicillin and gentamicin. Rhythm with some A-V dissociation. Objective - Vital Signs Vital signs: Vital Signs Temp 97.7 F 05/09/19 08:00 Pulse 75 05/09/19 10:00 Resp 24 05/09/19 10:00 BP 123/74 05/09/19 10:00 Pulse Ox 100 05/09/19 10:00 Intake & Output 05/08/19 05/09/19 05/09/19 18:59 06:59 18:59 Intake Total 3850 1450 800 Output Total 1405 695 500 Balance 2445 755 300 Weight 94.4 kg 97.2 kg Intake: IV 1450 1200 320 0.9% NaCl with KCl 20 Meq 600 600 100 /l 1,000 ml @ 50 mls/hr IV .[id number] DELISA with Mvi, Adult No.4 with Vit K 10 ml with Thiamine 100 mg with Folic Acid 1 mg Rx#: [id number] Ampicillin 2,000 mg In 300 100 Sodium Chloride 0.9% 100 ml @ 200 mls/hr IVPB Q4H [facility] Rx#:[id number] Gentamicin in NaCl Iso- 200 Osm Pmx 80 mg In Saline 1 100ml.bag @ 100 mls/hr IVPB Q8HR [facility] Rx#: [id number] Sodium Chloride 0.9% 1, 350 600 120 000 ml @ 20 mls/hr IV . Q24H [facility] Rx#:[id number] Oral 2400 250 480 Output: Urine 1405 695 500 Other: Voiding Method Indwelling Catheter Indwelling Catheter Indwelling Catheter # Bowel Movements 1 2 - Exam GENERAL EXAM: Awake and alert, oriented 3 a pleasant 68-year-old white male, arousable to verbal stimuli, at times slightly lethargic, but arousable, overall level of consciousness has improved HEAD: Normocephalic/atraumatic. EYES: Normal reaction of pupils, equal size. Conjunctiva pink, sclera white. NOSE: Clear with pink turbinates. THROAT: No erythema or exudates. NECK: No masses, no JVD, no thyroid enlargement, no adenopathy. CHEST: No chest wall deformity. Symmetrical expansion. Tenderness at the left sternoclavicular junction at the site of the attempted needle aspiration of the sternal abscess LUNGS: Equal air entry with crackles in the posterior bases. Mild wheezing noted CVS: Regular rate and rhythm, normal S1 and S2, no gallops, no murmurs, no rubs ABDOMEN: Soft, nontender. No hepatosplenomegaly, normal bowel sounds, no guarding or rigidity. EXTREMITIES: No clubbing, no edema, no cyanosis, 2+ pulses and upper and lower extremities. MUSCULOSKELETAL: Muscle strength and tone normal. SPINE: No scoliosis or deformity SKIN: No rashes CENTRAL NERVOUS SYSTEM: Awake and alert, just back to sleep oriented -3. No focal deficits, tone is normal in all 4 extremities. - Labs CBC & Chem 7: 05/09/19 05:40 05/09/19 05:40 Labs: Abnormal Lab Results - Last 24 Hours (Table) 05/08/19 05/08/19 05/08/19 Range/Units 13:17 17:30 21:00 WBC (3.8-10.6) k/uL RBC (4.30-5.90) m/uL Hgb (13.0-17.5) gm/dL Hct (39.0-53.0) % Neutrophils # (1.3-7.7) k/uL Sodium (137-145) mmol/L Carbon Dioxide (22-30) mmol/L Glucose (74-99) mg/dL POC Glucose (mg/dL) 181 H 182 H 142 H (75-99) mg/dL Calcium (8.4-10.2) mg/dL 05/09/19 05/09/19 05/09/19 Range/Units 05:40 05:40 07:33 WBC 16.3 H (3.8-10.6) k/uL RBC 3.03 L (4.30-5.90) m/uL Hgb 9.9 L (13.0-17.5) gm/dL Hct 29.4 L (39.0-53.0) % Neutrophils # 14.5 H (1.3-7.7) k/uL Sodium 130 L (137-145) mmol/L Carbon Dioxide 19 L (22-30) mmol/L Glucose 108 H (74-99) mg/dL POC Glucose (mg/dL) 123 H (75-99) mg/dL Calcium 7.6 L (8.4-10.2) mg/dL Microbiology - Last 24 Hours (Table) 05/08/19 05:31 Blood Culture Gram Stain - Preliminary Blood 05/08/19 05:31 Blood Culture - Final Blood 05/04/19 04:40 Blood Culture Gram Stain - Final Blood Blood Culture - Final Enterococcus faecalis 05/04/19 17:35 Blood Culture Gram Stain - Final Blood Blood Culture - Final Enterococcus faecalis 05/04/19 17:20 Blood Culture Gram Stain - Final Blood Blood Culture - Final Enterococcus faecalis 05/06/19 05:37 Blood Culture Gram Stain - Final Blood Blood Culture - Final Enterococcus faecalis 05/07/19 05:15 Blood Culture Gram Stain - Preliminary Blood Blood Culture - Preliminary Group D Enterococcus Assessment and Plan Assessment: 1 enterococcus D bacteremia and infective endocarditis, transesophageal echocardiogram showed vegetation on the bioprosthetic aortic valve, follow-up blood cultures are positive for enterococcus faecalis, and remained positive as of 05/07/2023 gram-positive cocci in chains 2 septic emboli to the brain, and secondary altered mentation, today mentation is improving, patient is more arousable, and oriented 3 3 left sternoclavicular joint abscess, unsuccessful ultrasound-guided needle aspiration, with the possibility of sternal bone infection 4 mild lactic acidosis, improved 5 fever, improved 6 hyponatremia, likely acute, and his sodium level is improving is up to 130. 7 aortic valve replacement/bioprosthetic aortic valve in 2014 8 lethargy and diminished level of consciousness secondary to above, possibly secondary to metabolic encephalopathy and septic emboliisms. Ativan has been discontinued, MRI of the brain showed multiple areas of infarction suggestive of septic embolisms. Mentation and level of consciousness improving on today's exam 9 diabetes mellitus type 2 10 hypertension 11 hyperlipidemia 12 gout 13 COPD 14 troponin leak likely secondary to above currently on IV heparin 15 Peripheral vascular disease 16 history of alcoholism 17 Clavicular fracture secondary to fall Plan: Seen and evaluated by Dr. Maxwell Chest x-ray, CT abdomen and labs reviewed IV Lasix given IV to KVO Remains on ampicillin and gentamicin Follow-up cultures positive as well Heart rhythm with AV disassociation Address code status Continue to follow I, the cosigning physician, performed a history & physical examination of the patient. Lungs sounds with crackles in the bases. Maintaining good O2 saturations in the 90s on 2 L/m per nasal cannula. I discussed the assessment and plan of care with my nurse practitioner, Norma Joseph. I attest to the above note as dictated by her.
[2019-05-09 12:23] LABS: Glucose,Whole Blood 125 mg/dL (75-99)
--- NOTE | 2019-05-09 15:54 | P.PN ---
Subjective Progress Note Date: 05/09/19 patient is sitting in the recliner chair, more alert and awake. Complains of blurred vision and double vision. No new focal symptoms otherwise. Objective - Vital Signs Vital signs: Vital Signs Temp 97.8 F 05/09/19 12:00 Pulse 90 05/09/19 15:16 Resp 24 05/09/19 15:00 BP 115/77 05/09/19 15:00 Pulse Ox 98 05/09/19 15:00 Intake & Output 05/08/19 05/09/19 05/09/19 18:59 06:59 18:59 Intake Total 3850 1450 1700 Output Total 5932 037 1263 Balance 2445 755 350 Weight 94.4 kg 97.2 kg Intake: IV 1450 1200 500 0.9% NaCl with KCl 20 Meq 600 600 100 /l 1,000 ml @ 50 mls/hr IV .[id number] [facility] with Mvi, Adult No.4 with Vit K 10 ml with Thiamine 100 mg with Folic Acid 1 mg Rx#: [id number] Ampicillin 2,000 mg In 300 200 Sodium Chloride 0.9% 100 ml @ 200 mls/hr IVPB Q4H [facility] Rx#:[id number] Gentamicin in NaCl Iso- 200 Osm Pmx 80 mg In Saline 1 100ml.bag @ 100 mls/hr IVPB Q8HR [facility] Rx#: [id number] Sodium Chloride 0.9% 1, 350 600 200 000 ml @ 20 mls/hr IV . Q24H [facility] Rx#:[id number] Oral 2400 250 1200 Output: Urine 4304 292 8457 Other: Voiding Method Indwelling Catheter Indwelling Catheter Indwelling Catheter # Bowel Movements 1 2 - Exam * Patient is alert and awake, fairly well oriented. Speech and language functions are normal. Cranial nerves reveals left TUAN. Possible mild/partial third nerve palsy. Face is symmetric. Tongue protrudes the midline. Visual braden are full. Muscle strength is normal in the arms and legs except deltoid which is weak bilaterally. Patient has possible Babinski on the right. - Labs CBC & Chem 7: 05/09/19 05:40 05/09/19 05:40 Labs: Abnormal Lab Results - Last 24 Hours (Table) 05/08/19 05/08/19 05/09/19 Range/Units 17:30 21:00 05:40 WBC 16.3 H (3.8-10.6) k/uL RBC 3.03 L (4.30-5.90) m/uL Hgb 9.9 L (13.0-17.5) gm/dL Hct 29.4 L (39.0-53.0) % Neutrophils # 14.5 H (1.3-7.7) k/uL Sodium (137-145) mmol/L Carbon Dioxide (22-30) mmol/L Glucose (74-99) mg/dL POC Glucose (mg/dL) 182 H 142 H (75-99) mg/dL Calcium (8.4-10.2) mg/dL 05/09/19 05/09/19 05/09/19 Range/Units 05:40 07:33 12:22 WBC (3.8-10.6) k/uL RBC (4.30-5.90) m/uL Hgb (13.0-17.5) gm/dL Hct (39.0-53.0) % Neutrophils # (1.3-7.7) k/uL Sodium 130 L (137-145) mmol/L Carbon Dioxide 19 L (22-30) mmol/L Glucose 108 H (74-99) mg/dL POC Glucose (mg/dL) 123 H 125 H (75-99) mg/dL Calcium 7.6 L (8.4-10.2) mg/dL Microbiology - Last 24 Hours (Table) 05/07/19 05:15 Blood Culture Gram Stain - Final Blood Blood Culture - Final Enterococcus faecalis 05/08/19 05:31 Blood Culture Gram Stain - Preliminary Blood Blood Culture - Preliminary Group D Enterococcus 05/08/19 05:31 Blood Culture - Final Blood 05/04/19 04:40 Blood Culture Gram Stain - Final Blood Blood Culture - Final Enterococcus faecalis 05/04/19 17:35 Blood Culture Gram Stain - Final Blood Blood Culture - Final Enterococcus faecalis 05/04/19 17:20 Blood Culture Gram Stain - Final Blood Blood Culture - Final Enterococcus faecalis 05/06/19 05:37 Blood Culture Gram Stain - Final Blood Blood Culture - Final Enterococcus faecalis Assessment and Plan Assessment: * 68-year-old male admitted with 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 * History of valvular heart disease status post bioprosthetic aortic valve replacement in 2015 * Diabetes * Hypertension * Dyslipidemia * History of alcoholism. Plan: * Agree with continuing aspirin 81 mg daily. * Aggressive control of infection and bacterial endocarditis as per infectious disease/critical care * Uncertain if patient would need evaluation by cardiothoracic surgery, if the vegetations do not resolve. * We will follow clinically. * Neurology service not available on the weekend.
--- NOTE | 2019-05-09 16:47 | P.PN ---
Subjective Progress Note Date: 05/09/19 The pleasant 68-year-old white male was admitted for multiple medical problems. He's currently on BiPAP maintaining saturations currently under investigation for acute metabolic encephalopathy falls and comminuted fracture of his clavicle forming an abscess-like mass. Today he supposed to undergo drainage of the left clavicle 5 cm area of concern. 05/06/2019 yesterday underwent ultrasound guided needle biopsy of left clavicle mass with only a droplet sanguinous drainage aspirated . Cytology pend ing.currently off BiPAP, maintaining O2 sats in the high 90s on 2 L nasal cannula. Telemetry sinus rhythm. Maintained on CIWA protocol, banana bag. Afebrile, WBC 12.5, blood cultures 2 reporting enterococcus D bacteremia with follow-up preliminary blood cultures negative. Continues on vancomycin, Unasyn. Creatinine 0.59. Sodium 1:30. CRP elevated, 190.3. Brain MRI pending. Denies chest pain, palpitations or shortness of breath. 05/07/2019 mildly agitated/restless related to being NPO, scheduled for LINDSAY today. Required Haldol during the night. Continues on CIWA protocol. Significant other at bedside. Telemetry sinus rhythm. VSS. Afebrile, follow-up blood cultures reporting enterococcus group D. continues on antibiotics as per ID .Maintaining O2 sats in the 90s on 2 L nasal cannula. Hemoglobin 10.5, sodium improving, 1:32. 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 05/08/2019 sensorium significantly improved, much more alert today. Underwent LINDSAY yesterday reporting evidence of vegetation on the prostatic aortic valve in combination with positive blood cultures confirming infective endocarditis. Antibiotics further adjusted to ampicillin with gentamicin .creatinine 0.56. Evaluated by cardiothoracic surgery , no surgical intervention recommended at this time. Afebrile, WBC 12. Denies chest pain, palpitations or shortness of breath. Denies abdominal pain. 05/09/2019 chest x-ray reporting bilateral lower lobe infiltrates, small effusion and mild CHF, received additional Lasix , IV fluids discontinued.maintaining O2 sats in the 90s on room air. Complains of increased shortness of breath though wheezing improved. C. difficile negative .Blood cultures reporting enterococcus.Continues on ampicillin, gentamicin as per infectious disease . Creatinine 0.73.Afebrile, T-max 100.3, WBC 16.3, hemoglobin 9.9, sodium trending down 130. Blood sugars controlled. CT abdomen and pelvis noted. Objective - Vital Signs Vital signs: Vital Signs Temp 98.1 F 05/09/19 16:00 Pulse 96 05/09/19 16:00 Resp 25 H 05/09/19 16:00 BP 132/84 05/09/19 16:00 Pulse Ox 99 05/09/19 16:00 Intake & Output 05/08/19 05/09/19 05/09/19 18:59 06:59 18:59 Intake Total 3850 1450 1800 Output Total 6831 071 2273 Balance 2445 755 375 Weight 94.4 kg 97.2 kg Intake: IV 1450 1200 600 0.9% NaCl with KCl 20 Meq 600 600 100 /l 1,000 ml @ 50 mls/hr IV .[id number] DELISA with Mvi, Adult No.4 with Vit K 10 ml with Thiamine 100 mg with Folic Acid 1 mg Rx#: [id number] Ampicillin 2,000 mg In 300 300 Sodium Chloride 0.9% 100 ml @ 200 mls/hr IVPB Q4H [facility] Rx#:[id number] Gentamicin in NaCl Iso- 200 Osm Pmx 80 mg In Saline 1 100ml.bag @ 100 mls/hr IVPB Q8HR [facility] Rx#: [id number] Sodium Chloride 0.9% 1, 350 600 200 000 ml @ 20 mls/hr IV . Q24H [facility] Rx#:[id number] Oral 2400 250 1200 Output: Urine 2629 961 5484 Other: Voiding Method Indwelling Catheter Indwelling Catheter Indwelling Catheter # Bowel Movements 1 2 - Exam GENERAL: Sitting up in bed, alert & oriented X 3 ,no acute distress . HEENT: Head is atraumatic, normocephalic. Pupils are equal, round, and reactive to light. Sclerae anicteric. Conjunctivae are clear. Mucus membranes of the mouth are dry. Neck is supple. RESPIRATORY: Decreased breath sounds to auscultation. Fine bibasilar crackles ,Minimal Expiratory wheezing CARDIOVASCULAR: Regular rate and rhythm. Positive for systolic murmur auscultated. GASTROINTESTINAL: No distention noted. Abdomen soft and round. Normal active bowel sounds auscultated x 4 quadrants. No pain or tenderness noted upon palpation. INTEGUMENTARY: No cyanosis. No jaundice. No rashes noted. No cellulitis noted. EXTREMITIES: 2+ peripheral pulses. Left upper sternal clavicular area tende rness noted. No calf tenderness noted. NEUROLOGIC: No focal deficits Microbiology 05/04/19 04:40 Blood Blood Culture Gram Stain - Final 05/04/19 04:40 Blood Blood Culture - Final Enterococcus faecalis 05/04/19 17:35 Blood Blood Culture Gram Stain - Final 05/04/19 17:35 Blood Blood Culture - Final Enterococcus faecalis 05/04/19 17:20 Blood Blood Culture Gram Stain - Final 05/04/19 17:20 Blood Blood Culture - Final Enterococcus faecalis 05/06/19 05:37 Blood Blood Culture Gram Stain - Final 05/06/19 05:37 Blood Blood Culture - Final Enterococcus faecalis 05/07/19 05:15 Blood Blood Culture Gram Stain - Preliminary 05/07/19 05:15 Blood Blood Culture - Preliminary Group D Enterococcus 05/05/19 11:56 Blood Blood Culture Gram Stain - Final 05/05/19 11:56 Blood Blood Culture - Final Enterococcus faecalis 05/05/19 15:50 Other - Other Gram Stain - Final 05/05/19 15:50 Other - Other Wound Culture - Final 05/07/19 05:15 Blood Blood Culture - Final 05/06/19 05:37 Blood Blood Culture - Final 05/05/19 11:56 Blood Blood Culture - Final 05/04/19 17:20 Blood Blood Culture - Final 05/04/19 17:35 Blood Blood Culture - Final 05/04/19 04:40 Blood Blood Culture - Final - Labs CBC & Chem 7: 05/09/19 05:40 05/09/19 05:40 Labs: Abnormal Lab Results - Last 24 Hours (Table) 05/08/19 05/08/19 05/09/19 Range/Units 17:30 21:00 05:40 WBC 16.3 H (3.8-10.6) k/uL RBC 3.03 L (4.30-5.90) m/uL Hgb 9.9 L (13.0-17.5) gm/dL Hct 29.4 L (39.0-53.0) % Neutrophils # 14.5 H (1.3-7.7) k/uL Sodium (137-145) mmol/L Carbon Dioxide (22-30) mmol/L Glucose (74-99) mg/dL POC Glucose (mg/dL) 182 H 142 H (75-99) mg/dL Calcium (8.4-10.2) mg/dL 05/09/19 05/09/19 05/09/19 Range/Units 05:40 07:33 12:22 WBC (3.8-10.6) k/uL RBC (4.30-5.90) m/uL Hgb (13.0-17.5) gm/dL Hct (39.0-53.0) % Neutrophils # (1.3-7.7) k/uL Sodium 130 L (137-145) mmol/L Carbon Dioxide 19 L (22-30) mmol/L Glucose 108 H (74-99) mg/dL POC Glucose (mg/dL) 123 H 125 H (75-99) mg/dL Calcium 7.6 L (8.4-10.2) mg/dL Microbiology - Last 24 Hours (Table) 05/07/19 05:15 Blood Culture Gram Stain - Final Blood Blood Culture - Final Enterococcus faecalis 05/08/19 05:31 Blood Culture Gram Stain - Preliminary Blood Blood Culture - Preliminary Group D Enterococcus 05/08/19 05:31 Blood Culture - Final Blood 05/04/19 04:40 Blood Culture Gram Stain - Final Blood Blood Culture - Final Enterococcus faecalis 05/04/19 17:35 Blood Culture Gram Stain - Final Blood Blood Culture - Final Enterococcus faecalis 05/04/19 17:20 Blood Culture Gram Stain - Final Blood Blood Culture - Final Enterococcus faecalis 05/06/19 05:37 Blood Culture Gram Stain - Final Blood Blood Culture - Final Enterococcus faecalis Assessment and Plan Assessment: -Sepsis, present on admission secondary to enterococcus group D bacteremia, secondary to infective aortic valve endocarditis, LINDSAY reporting vegetation on the bioprosthetic aortic valve Current Visit: Yes Status: Acute Code(s): A41.9 - SEPSIS, UNSPECIFIED ORGANISM SNOMED Code(s): 85116525 -Acute metabolic encephalopathy, multifactorial, secondary to the above as well as embolic disease of the brain. - Left Clavicle fracture secondary to fall with abscess, possible osteomyelitis, secondary to diabetes mellitus, status post unsuccessful aspiration biopsy Current Visit: Yes Status: Acute Code(s): S42.009A - FRACTURE OF UNSP PART OF UNSP CLAVICLE, INIT FOR CLOS FX SNOMED Code(s): 95136522 -Acute hypoxic Respiratory failure status post BiPAP Current Visit: Yes Status: Acute Code(s): J96.90 - RESPIRATORY FAILURE, UNSP, UNSP W HYPOXIA OR HYPERCAPNIA SNOMED Code(s): 401331058 - history of Aortic valve replaced, bioprosthetic Current Visit: No Status: Acute Code(s): Z95.2 - PRESENCE OF PROSTHETIC HEART VALVE SNOMED Code(s): 8263078963098 - Diabetes type 2, controlled Current Visit: Yes Status: Acute Code(s): E11.9 - TYPE 2 DIABETES MELLITUS WITHOUT COMPLICATIONS SNOMED Code(s): 29240224 -Elevated troponin level Current Visit: Yes Status: Acute Code(s): R79.89 - OTHER SPECIFIED ABNORMAL FINDINGS OF BLOOD CHEMISTRY SNOMED Code(s): 091706371 -Acute Hyponatremia -EtOH abuse, on CIWA protocol -Numerous bilateral acute and subacute lacunar infarcts in supratentorial and infratentorial white matter, suspicious for embolic disease. -Mild protein calorie malnutrition -Anemia of chronic disease Plan: Continue on current medication regime , aspirin, monitoring and symptomatic treatment. Maintain IV fluid hydration,CIWA protocol. IV antibiotics as per ID. PICC line pending negative blood cultures. follow closely with multiple consults. Prognosis guarded, given multiple complex medical issues The impression and plan of care has been dictated as directed. : I performed a history and examination of this patient, discussed the same with the dictator. I agree with the dictator's note ,documented as a scribe. Any additional findings or plans will be noted.
--- NOTE | 2019-05-09 16:54 | PN ---
PROGRESS NOTE Mr. Espinoza is a 68-year-old male who presents with change in mental status, was found to have evidence of endocarditis affecting the bioprosthetic aortic valve with brain embolization. He is awake complaining of some dyspnea. He denies any chest pain. On the monitor, he is having a more prolonged NH interval with episode of 2:1 transient block. He denies any dizziness or palpitation. He denies any nausea. He continues to be at this time on aspirin, Lipitor 40 mg daily, Lasix 20 mg daily, lisinopril 15 mg daily, metoprolol tartrate 25 mg twice a day in addition to the antibiotics. PHYSICAL EXAMINATION: Blood pressure 115/72 with a heart rate of 90. LUNGS: Few crackles bilaterally. HEART: Regular rate and rhythm. S1, S1. No S3 with systolic murmur, no diastolic murmur. ABDOMEN: Soft, nontender. EXTREMITIES: 1+ edema. LAB DATA: With BUN and creatinine 15 and 0.73, potassium 4.5, white blood cell of 16.3. IMPRESSION: 1. Endocarditis on the bioprosthetic aortic valve with Enterococcus D bacteremia. 2. Prolonged NH interval and episode of 2:1 conduction consistent with infection of the aortic annulus. 3. Septic embolization to the brain with change in mental status. 4. Left sternoclavicular joint abscess. 5. History of hypertension. 6. Diabetes. 7. Peripheral vascular disease. RECOMMENDATIONS: I discussed the findings with the patient and his family. In view of the change on the AV conduction, patient will be re-evaluated by the Cardiovascular Service regarding undergoing redo surgery. The risks are quite high. The patient is not sure about his plan. Will await the input of the surgeon. Unfortunately, the prognosis is quite poor. MMODL / IJN: [id number] /
[2019-05-09 16:57] LABS: Glucose,Whole Blood 185 mg/dL (75-99)
[2019-05-09] MEDS ORDERED: ZOLPIDEM 5 MG TAB PO PRN (17:39)
[2019-05-09] MEDS: LOPERAMIDE 2 MG CAP PO PRN (18:29)
[2019-05-09] MEDS: CHOLESTYRAMINE (WITH SUGAR) 4 GM PACKET PO SCH (19:12)
[2019-05-09 21:05] LABS: Glucose,Whole Blood 256 mg/dL (75-99)
[2019-05-09] MEDS: LISINOPRIL 10 MG TAB PO SCH (21:35)
[2019-05-09] MEDS: MONTELUKAST 10 MG TAB PO SCH (21:37)
--- NOTE | 2019-05-09 23:07 | PN ---
PROGRESS NOTE DATE OF SERVICE: 05/09/19. REASON FOR FOLLOWUP: Enterococcus faecalis bacteremia and aortic wall endocarditis. INTERVAL HISTORY: The patient is currently afebrile, has been breathing comfortably. Denies having any chest pain. No cough. No nausea or vomiting. No abdominal pain. No diarrhea. PHYSICAL EXAMINATION: Blood pressure 127/72 with a pulse of 90, temperature 98. He is 98% on 2 L nasal cannula. General description is an elderly male up in the chair in no distress. Respiratory system: Unlabored breathing. Decreased breath sounds in the bases. No wheeze. Heart S1, S2. Regular rate and rhythm ABDOMEN: Soft. No tenderness. EXTREMITIES: No edema of the feet. LABS: Hemoglobin is 9.9, white count 16.3. BUN of 15, creatinine 0.73. Blood cultures remains to be positive. DIAGNOSTIC IMPRESSION AND PLAN: Patient with Enterococcus bacteremia secondary to aortic valve endocarditis. Blood culture remains to be positive, though he seemed to have shown signs of clinical improvement. He will continue ampicillin and gentamicin while monitoring clinical course closely. Continue supportive care. MMODL / IJN: [id number] /
[2019-05-10] MEDS: AMPICILLIN 2,000 MG in SODIUM CHLORIDE 0.9% 100 ML IVPB SCH ×6 (01:29→21:40)
[2019-05-10] MEDS: HYDROcodone/APAP 5-325MG 1 EACH TAB PO PRN ×3 (02:12→16:38)
[2019-05-10] MEDS: SODIUM CHLORIDE 0.9% 1,000 ML IV SCH (05:03)
[2019-05-10] MEDS ORDERED: GENTAMICIN TROUGH DUE 1 EACH MISC MISCELLANE ONE ×2 (05:30→17:30)
[2019-05-10 05:31] LABS: Basophils % (A) 0 %; Eosinophils # (A) 0.1 k/uL (0-0.7); Eosinophils % (A) 1 %; HCT 27.9 % (39.0-53.0); HGB 9.2 gm/dL (13.0-17.5); Lymphocytes # (A) 0.9 k/uL (1.0-4.8); Lymphocytes % (A) 6 %; MCH 32.2 pg (25.0-35.0); MCV 97.4 fL (80.0-100.0); Mean Platelet Volume 8.7; Monocytes # (A) 0.8 k/uL (0-1.0); Monocytes % (A) 5 %; Neutrophils # (A) 14.7 k/uL (1.3-7.7); Neutrophils % (A) 88 %; Platelet Count 143 k/uL (150-450); RBC 2.87 m/uL (4.30-5.90); RDW 13.7 % (11.5-15.5); WBC 16.8 k/uL (3.8-10.6)
[2019-05-10 05:51] LABS: African American GFR (CKD) >90 (>60 ml/min/1.73 sqM); Anion Gap 3 mmol/L; Blood Urea Nitrogen 18 mg/dL (9-20); Calcium 7.6 mg/dL (8.4-10.2); Carbon Dioxide 24 mmol/L (22-30); Chloride 101 mmol/L (98-107); Glucose 122 mg/dL (74-99); Magnesium 1.6 mg/dL (1.6-2.3); Non-African American GFR(CKD) >90 (>60 ml/min/1.73 sqM); Potassium 4.3 mmol/L (3.5-5.1); Sodium 128 mmol/L (137-145)
[2019-05-10] MEDS: GENTAMICIN IN NACL ISO-OSM PMX 80 MG in SALINE 1 100ML.BAG IVPB SCH ×2 (06:08→18:27)
[2019-05-10] MEDS ORDERED: Magnesium Replacement Protocol 1 EACH MISC MISCELLANE PRN (06:28)
[2019-05-10] MEDS: MAGNESIUM SULFATE-D5W PMX 1 GM in DEXTROSE/WATER 1 100ML.BAG IVPB SCH ×2 (06:45→09:06)
[2019-05-10 06:56] LABS: Glucose,Whole Blood 137 mg/dL (75-99)
[2019-05-10] MEDS: INSULIN ASPART (NovoLOG) 100 UNIT/ML VIAL SQ SCH ×7 (06:57→21:31)
[2019-05-10] MEDS: IPRATROPIUM-ALBUTEROL 3 ML NEB INHALATION SCH ×4 (07:17→19:44)
[2019-05-10] MEDS: BUDESONIDE 0.5 MG/2 ML NEBU INHALATION SCH ×2 (07:17→19:44)
[2019-05-10] MEDS ORDERED: GENTAMICIN PEAK DUE 1 EACH MISC MISCELLANE ONE ×2 (08:00→20:00)
--- NOTE | 2019-05-10 08:28 | XR ---
EXAMINATION TYPE: XR chest 1V portable DATE OF EXAM: 05/10/2019 COMPARISON: 05/09/2019 HISTORY: Shortness of breath and congestive heart failure. TECHNIQUE: Single frontal view of the chest is obtained. FINDINGS: Cardiomediastinal silhouette is enlarged with post CABG change. There are trace pleural ef fusions and bibasilar airspace disease overall similar to the prior. Mild central pulmonary vascular congestion seen. No acute osseous pathology. IMPRESSION: Stable fluid overload likely of congestive heart failure with trace pleural effusions an d central pulmonary vascular congestion.
[2019-05-10] MEDS: ASPIRIN 81 MG PO SCH (09:11)
[2019-05-10] MEDS: ALLOPURINOL 100 MG TAB PO SCH (09:11)
[2019-05-10] MEDS: LORATADINE 10 MG TAB PO SCH (09:11)
[2019-05-10] MEDS: FUROSEMIDE 20 MG TAB PO SCH (09:12)
[2019-05-10] MEDS: METOPROLOL TARTRATE 25 MG TAB PO SCH ×2 (09:12→21:31)
[2019-05-10] MEDS: HEPARIN SODIUM,PORCINE 5,000 UNIT/ML 1 ML VIAL SQ SCH ×2 (09:12→21:40)
[2019-05-10] MEDS: PANTOPRAZOLE 40 MG/10 ML VIAL IVP SCH (09:12)
[2019-05-10] MEDS: MAGNESIUM OXIDE 400 MG TAB PO SCH (09:12)
[2019-05-10] MEDS: THIAMINE 100 MG TAB PO SCH (09:12)
[2019-05-10] MEDS: ATORVASTATIN 40 MG TAB PO SCH (09:12)
[2019-05-10 11:58] LABS: Glucose,Whole Blood 175 mg/dL (75-99)
[2019-05-10] MEDS: CHOLESTYRAMINE (WITH SUGAR) 4 GM PACKET PO SCH ×2 (12:30→21:30)
--- NOTE | 2019-05-10 13:17 | P.PN ---
Subjective Progress Note Date: 05/10/19 Principal diagnosis: Bacterial endocarditis, bacteremia with enterococcus faecalis, left clavicle fracture, lactic acidosis on admission, development of AV block. Previous medical history of aortic stenosis status post aortic valve replacement in June 2014 with #21, effective valve as well as aortic endarterectomy, hypertension, hyperlipidemia, diabetes, peripheral vascular disease, daily EtOH use, and previous tobacco dependence. The patient is currently sitting up in bed in the intensive care unit in no acute distress. States pain in clavicle is less than previous, denies shortness of breath. Objective - Vital Signs Vital signs: Vital Signs Temp 97.7 F 05/10/19 12:00 Pulse 75 05/10/19 12:00 Resp 13 05/10/19 12:00 BP 106/62 05/10/19 12:00 Pulse Ox 98 05/10/19 12:00 Intake & Output 05/09/19 05/10/19 05/10/19 18:59 06:59 18:59 Intake Total 2280 810 600 Output Total 1561 860 405 Balance 719 -50 195 Weight 98.4 kg Intake: IV 720 810 200 0.9% NaCl with KCl 20 Meq 100 /l 1,000 ml @ 50 mls/hr IV .[id number] [facility] with Mvi, Adult No.4 with Vit K 10 ml with Thiamine 100 mg with Folic Acid 1 mg Rx#: [id number] Ampicillin 2,000 mg In 300 600 100 Sodium Chloride 0.9% 100 ml @ 200 mls/hr IVPB Q4H [facility] Rx#:[id number] Gentamicin in NaCl Iso- 100 Osm Pmx 80 mg In Saline 1 100ml.bag @ 100 mls/hr IVPB Q8HR [facility] Rx#: [id number] Sodium Chloride 0.9% 1, 220 210 100 000 ml @ 20 mls/hr IV . Q24H [facility] Rx#:[id number] Intake, IV Titration 200 Amount Magnesium Sulfate-D5w Pmx 200 1 gm In Dextrose/Water 1 100ml.bag @ 100 mls/hr IVPB Q1H [facility] Rx#: [id number] Oral 1560 200 Output: Urine 1560 860 405 Stool 1 Other: Voiding Method Indwelling Catheter Indwelling Catheter # Bowel Movements 1 - Constitutional General appearance: Present: cooperative, no acute distress, obese - Respiratory Details: Lungs sounds diminished bilaterally. Respirations even, nonlabored. Currently on 2 L nasal cannula with oxygen saturation 98%. - Cardiovascular Details: S1, S2 present. Systolic murmur present. Regular rate and rhythm, sinus rhythm on telemetry with occasional 1st degree AV block. Palpable peripheral pulses bilaterally. No edema present. No calf pain or tenderness noted. SCDs present. - Gastrointestinal Gastrointestinal Comment(s): Abdomen soft, nontender, nondistended. Active bowel sounds 4 quadrants. Tolerating diet. - Genitourinary Genitourinary Comment(s): Pierce present draining clear, yellow urine. - Integumentary Integumentary Comment(s): Skin is warm and dry with evidence of good perfusion - Neurologic Neurologic: Present: CNII-XII intact - Musculoskeletal Musculoskeletal: Present: strength equal bilaterally - Psychiatric Psychiatric: Present: A&O x's 3, appropriate affect - Allied health notes Allied health notes reviewed: nursing - Labs CBC & Chem 7: 05/10/19 05:11 05/10/19 05:11 Labs: Abnormal Lab Results - Last 24 Hours (Table) 05/09/19 05/09/19 05/10/19 Range/Units 16:55 21:03 05:11 WBC 16.8 H (3.8-10.6) k/uL RBC 2.87 L (4.30-5.90) m/uL Hgb 9.2 L (13.0-17.5) gm/dL Hct 27.9 L (39.0-53.0) % Plt Count 143 L (150-450) k/uL Neutrophils # 14.7 H (1.3-7.7) k/uL Lymphocytes # 0.9 L (1.0-4.8) k/uL Sodium (137-145) mmol/L Glucose (74-99) mg/dL POC Glucose (mg/dL) 185 H 256 H (75-99) mg/dL Calcium (8.4-10.2) mg/dL 05/10/19 05/10/19 05/10/19 Range/Units 05:11 06:54 11:56 WBC (3.8-10.6) k/uL RBC (4.30-5.90) m/uL Hgb (13.0-17.5) gm/dL Hct (39.0-53.0) % Plt Count (150-450) k/uL Neutrophils # (1.3-7.7) k/uL Lymphocytes # (1.0-4.8) k/uL Sodium 128 L (137-145) mmol/L Glucose 122 H (74-99) mg/dL POC Glucose (mg/dL) 137 H 175 H (75-99) mg/dL Calcium 7.6 L (8.4-10.2) mg/dL Microbiology - Last 24 Hours (Table) 05/09/19 05:40 Blood Culture Gram Stain - Preliminary Blood 05/09/19 05:40 Blood Culture - Final Blood 05/08/19 05:31 Blood Culture Gram Stain - Preliminary Blood Blood Culture - Preliminary Group D Enterococcus 05/07/19 05:15 Blood Culture Gram Stain - Final Blood Blood Culture - Final Enterococcus faecalis - Imaging and Cardiology Chest x-ray: report reviewed, image reviewed Assessment and Plan Assessment: 1. Bacterial endocarditis, development of intermittent AV block 2. Bacteremia, blood cultures positive for enterococcus faecalis May 03, , 3. Left clavicle fracture, sternoclavicular fluid present, abscess versus hematoma, minimal culture sent and is negative 4. Lactic acidosis on admission, improved 5. History of aortic stenosis status post bioprosthetic aortic valve replacement in June 2014 6. Hypertension 7. Hyperlipidemia 8. Diabetes 9. Peripheral vascular disease 10. Daily EtOH abuse 11. Previous tobacco dependence Plan: 1. The patient was seen by Dr. Rivero. The patient is high surgical risk, may need temporary pacer, non-surgical strategy to continue 2. Antibiotics per infectious disease 3. Medical management of other comorbidities per primary care service, cardiology, infectious disease, pulmonology. 4. Will see again as needed. Please call us with any further questions Time with Patient: Greater than 30
--- NOTE | 2019-05-10 13:21 | PN ---
PROGRESS NOTE This patient's clinical panels and laboratory tests and rhythm strips are reviewed. The patient is treated for bioprosthetic aortic valve endocarditis with antibiotics. The patient is slightly lethargic, does not answer some of the questions appropriately, but is sitting comfortably in bed. Blood pressure is 113/73 mmHg, heart rate is 60 per minute. First and second heart sounds are normal. Lungs are clear to auscultation and percussion. Patient's monitor strip shows evidence of type 1 second-degree AV block. Cardiothoracic surgeons are going to discuss with the family members regarding further plans. At present the family seems to be wanting only medical treatment. MMODL / IJN: [id number] /
--- NOTE | 2019-05-10 16:22 | P.PN ---
Subjective Progress Note Date: 05/10/19 This is a pleasant 68-year-old male past medical history significant for valvular heart disease status post bioprosthetic aortic valve replacement in 2014, peripheral vascular disease status post aortic endarterectomy 2014, diabetes mellitus, hypertension and dyslipidemia. He admits to daily alcohol intake. 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 We have been asked to see in consultation for elevated troponin. He initially presented to the emergency department with symptoms of shortness of breath, cough and fall. He is unsure. It corresponding loss of consciousness. He states that he lost his balance falling on the left side of his body. He was noted to be febrile on admission with a temperature of 101.7. The patient states that he was sick since March 2019. Back then he was in [place]. On and off he was having fever. He was seen in [place] emergency department and he was given treatment and the exact treatment is not known to us at this point in time. The patient himself is a very poor historian. I think is lethargic and somewhat encephalopathic and is unable to volunteer detailed history. He came in to the hospital regarding these ongoing problems. The hospital, the patient was found to have a white cell count of 10.8. His initial lactic acid level was 3 and it dropped down to 1.0. Troponin was slightly positive at 0.657. ProBNP level was 4860. CT angiogram of the chest was done and was negative for pulmonary embolism. There was a soft tissue collection superior aspect of the left sternoclavicular joint at the level of the third and had with some tissue thickening and there is involvement of the sternum and there is also recommended the undisplaced fracture of the left clavicle. On examination, the patient is sore in the involved area without any significant erythema or warmth. For now he is on examination of Rocephin and Zithromax. He does have a cardiac murmur. He has a bioprosthetic aortic valve that was placed in 2014. On today's evaluation the patient is being seen in follow-up on 05/05/2019. The patient remains on a VATS with a tidal volume of 550. His current meds as the patient is at 10.6. He is pulling approximately 500 mL of tidal volume while being on this current moles. Overnight the patient became more restless and agitated. He apparently drinks and he is enjoying for around a week or 2 and he became confused. He was placed on the CIWA protocol and the patient was given Ativan where he received a total of 1.5 mg of Ativan. He remains on broad- spectrum antibiotics. He has been on a combination of Unasyn and vancomycin. Protocol troponin level is elevated. He was supposed to have a aspiration of the chest wall abscess/collection by interventional radiology. He was still seeking a consent from the significant other. Interventional radiology supposed to undergo this drainage of the possible chest wall abscess today once consent is obtained. On 05/06/2019 patient is seen in follow-up in intensive care unit, he is more arousable today, but remains confused, still somnolent, but opens eyes, and answers questions, but inattentive. Positive CAM ICU score. Off BiPAP support currently, he is on 2 L of oxygen and the pulse ox of 99 200%, he is afebrile, in sinus mechanism with a rate of 76, blood pressures 101/69, no vasoactive drips, maintenance IV fluids 0.9 normal saline at a rate of 100, patient is getting thiamine replacement and MVI replacement at a rate of 50 ML per hour. Patient has enterococcus D bacteremia on 2 separate blood cultures, follow blood cultures are negative thus far, he is on a culmination of Unasyn and vancomycin for antibiotics. Urinalysis without signs of infection, no significant cough or congestion, lung sounds reveal diminished breath sounds with mild wheezing. Today's labs reviewed, showing white blood cell count of 12.5, hemoglobin of 10.4, serum sodium 1:30, potassium is 4.2, CO2 is 20, BUN of 22 creatinine 0.59. Patient is producing adequate urine output, and the order of 100-200 ML per hour. Transthoracic echocardiogram did not show evidence of vegetation and showed adequately functioning bioprosthetic aortic valve. Yesterday patient underwent ultrasound-guided needle aspiration biopsy of the left sternoclavicular mass however there was only of droplet of blood aspirated. Cardiology is following, and will be requested to perform transesophageal echocardiogram to rule out possibility of endocarditis. On 05/07/2019 patient seen in follow-up in the intensive care unit, this morning he had his transesophageal echocardiogram by Dr. Babar Kulkarni, and patient was found to have vegetation on his bioprosthetic aortic valve. 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 Blood cultures from 05/04/2019 positive for Enterococcus faecalis, 05/05/2019 were positive for group D enterococcus. Patient is currently on Unasyn and vancomycin. This morning he seen in the intensive care unit, she is lethargic, but arouses to verbal stimuli, he still under the effect of fentanyl and Versed given for the transesophageal echocardiogram. Hemodynamically patient stable, he is in sinus mechanism with a rate of 74 BPM, blood pressures 104/65, patient is on 2 L of oxygen with a pulse ox of 96%, lung sounds reveal diminished breath sounds bilaterally, some scattered crackles, no wheezes, Pierce catheter is in place and patient is producing adequate amount of urine, patient is on IV fluids in the form of MVI at a rate of 50 ML per hour, and 0.9 normal saline at a rate of 50 ML per hour, he is on clear liquid diet yesterday, today we can advance his diet as tolerated once the patient is more awake. On 05/08/2019 patient seen in follow-up in the intensive care unit, more awake today, responsive, he is oriented 3, he remains on a combination of Unasyn and vancomycin for enterococcus faecalis bacteremia, follow-up blood cultures are showing gram-positive cocci in chains, final culture is pending, we'll repeat another set of blood cultures. Today's lab work has been reviewed showing blood cell count of 12.0, hemoglobin of 10.9, sodium is improving, up to 134, potassium is 4.9, BUN of 13 creatinine 0.56. ID service is following, CT surgery consultation was noted, no plans for surgical intervention, overall clinically seems to be improving, dyspneic with exertion, lung sounds reveal bibasilar crackles, denies any abdominal pain, denies any nausea or vomiting no diarrhea, he is tolerating oral intake, he is on 2 L of oxygen with a pulse ox of 96%. Patient was working with the physical therapy yesterday and he was up to the chair The patient is seen today 05/09/2019 in follow-up in the intensive care unit. C urrently resting in bed. Awake, alert. He was having increasing shortness of breath, Given additional Lasix. Chest x-ray reveals bilateral lower lobe infiltrates with small effusion and mild CHF. Increased peripheral edema. IV from 100 ML's per hour to KVO. blood cultures positive for enterococcus. White count count 16.3. Hemoglobin 9.9. Creatinine 0.73. C. diff screen negative. Currently on ampicillin and gentamicin. Rhythm with some A-V dissociation. On 05/10/2019, the patient is still doing poorly. he is lethargic. He is sleeping most of the time. He is arousable, however he would go back to sleep if left unstimulated. He does have some left eye droop. He has difficulties w ith coordination and since of that and he drops things easily such as cups or utensils while having to be fed. The patient has no headache. No neck stiffness. No fever. The blood cultures are positive with group D enterococcus and the patient is still on a combination of ampicillin and gentamicin. The white cell count is at 16.8. He is afebrile. Sodium level is at 128. Hemoglobin is at 9.2. He has a first-degree AV block on today's rhythm strips. He was having some A-V dissociation on earlier EKG findings which doesn't seem to be the case for today. Cardiology is on the case. Cardiac thoracic surgery is on the case. No plans to do any surgical intervention and the patient has a very poor baseline performance and functional status. Objective - Vital Signs Vital signs: Vital Signs Temp 97.7 F 05/10/19 12:00 Pulse 62 05/10/19 15:48 Resp 18 05/10/19 15:00 BP 102/65 05/10/19 15:00 Pulse Ox 99 05/10/19 15:00 Intake & Output 05/09/19 05/10/19 05/10/19 18:59 06:59 18:59 Intake Total 2280 810 1210 Output Total 1561 860 575 Balance 719 -50 635 Weight 98.4 kg Intake: IV 720 810 460 0.9% NaCl with KCl 20 Meq 100 /l 1,000 ml @ 50 mls/hr IV .[id number] DELISA with Mvi, Adult No.4 with Vit K 10 ml with Thiamine 100 mg with Folic Acid 1 mg Rx#: [id number] Ampicillin 2,000 mg In 300 600 300 Sodium Chloride 0.9% 100 ml @ 200 mls/hr IVPB Q4H [facility] Rx#:[id number] Gentamicin in NaCl Iso- 100 Osm Pmx 80 mg In Saline 1 100ml.bag @ 100 mls/hr IVPB Q8HR [facility] Rx#: [id number] Sodium Chloride 0.9% 1, 220 210 160 000 ml @ 20 mls/hr IV . Q24H [facility]ISA Rx#:[id number] Intake, IV Titration 200 Amount Magnesium Sulfate-D5w Pmx 200 1 gm In Dextrose/Water 1 100ml.bag @ 100 mls/hr IVPB Q1H [facility] Rx#: [id number] Oral 1560 550 Output: Urine 1560 860 575 Stool 1 Other: Voiding Method Indwelling Catheter Indwelling Catheter Indwelling Catheter # Bowel Movements 1 - Exam GENERAL EXAM: Awake and alert, oriented 3 a pleasant 68-year-old white male, arousable to verbal stimuli, at times slightly lethargic, but arousable, overall level of consciousness has improved HEAD: Normocephalic/atraumatic. EYES: Normal reaction of pupils, equal size. Conjunctiva pink, sclera white. NOSE: Clear with pink turbinates. THROAT: No erythema or exudates. NECK: No masses, no JVD, no thyroid enlargement, no adenopathy. CHEST: No chest wall deformity. Symmetrical expansion. Tenderness at the left sternoclavicular junction at the site of the attempted needle aspiration of the sternal abscess LUNGS: Equal air entry with crackles in the posterior bases. Mild wheezing noted CVS: Regular rate and rhythm, normal S1 and S2, no gallops, no murmurs, no rubs ABDOMEN: Soft, nontender. No hepatosplenomegaly, normal bowel sounds, no guardi ng or rigidity. EXTREMITIES: No clubbing, no edema, no cyanosis, 2+ pulses and upper and lower extremities. MUSCULOSKELETAL: Muscle strength and tone normal. SPINE: No scoliosis or deformity SKIN: No rashes CENTRAL NERVOUS SYSTEM: Awake and alert, just back to sleep oriented -3. No focal deficits, tone is normal in all 4 extremities. The patient has some droop and the left face and eye area. Poor coordination. Motor weakness is present in all 4 extremities. - Labs CBC & Chem 7: 05/10/19 05:11 05/10/19 05:11 Labs: Abnormal Lab Results - Last 24 Hours (Table) 05/09/19 05/09/19 05/10/19 Range/Units 16:55 21:03 05:11 WBC 16.8 H (3.8-10.6) k/uL RBC 2.87 L (4.30-5.90) m/uL Hgb 9.2 L (13.0-17.5) gm/dL Hct 27.9 L (39.0-53.0) % Plt Count 143 L (150-450) k/uL Neutrophils # 14.7 H (1.3-7.7) k/uL Lymphocytes # 0.9 L (1.0-4.8) k/uL Sodium (137-145) mmol/L Glucose (74-99) mg/dL POC Glucose (mg/dL) 185 H 256 H (75-99) mg/dL Calcium (8.4-10.2) mg/dL 05/10/19 05/10/19 05/10/19 Range/Units 05:11 06:54 11:56 WBC (3.8-10.6) k/uL RBC (4.30-5.90) m/uL Hgb (13.0-17.5) gm/dL Hct (39.0-53.0) % Plt Count (150-450) k/uL Neutrophils # (1.3-7.7) k/uL Lymphocytes # (1.0-4.8) k/uL Sodium 128 L (137-145) mmol/L Glucose 122 H (74-99) mg/dL POC Glucose (mg/dL) 137 H 175 H (75-99) mg/dL Calcium 7.6 L (8.4-10.2) mg/dL Microbiology - Last 24 Hours (Table) 05/09/19 05:40 Blood Culture Gram Stain - Preliminary Blood Blood Culture - Preliminary Group D Enterococcus 05/09/19 05:40 Blood Culture - Final Blood 05/08/19 05:31 Blood Culture Gram Stain - Preliminary Blood Blood Culture - Preliminary Group D Enterococcus 05/07/19 05:15 Blood Culture Gram Stain - Final Blood Blood Culture - Final Enterococcus faecalis Assessment and Plan Plan: 1 enterococcus D bacteremia and infective endocarditis, transesophageal echocardiogram showed vegetation on the bioprosthetic aortic valve, follow-up blood cultures are positive for enterococcus faecalis, and remained positive as of 05/09/2023 gram-positive cocci in chains. The patient remains on a combination of ampicillin and gentamicin. Unfortunately, the bacteria is still present in the blood and the patient is not feeling his bacteremia. 2 septic emboli to the brain, and secondary altered mentation, today mentation is improving, patient is more arousable, and oriented, yet he is having some motor deficits with left eyelid droop in addition to difficulties with coordination and since of depth. 3 left sternoclavicular joint abscess, unsuccessful ultrasound-guided needle aspiration, with the possibility of sternal bone infection versus a hematoma. The cultures from the sternum came back negative. 4 mild lactic acidosis, improved 5 fever, improved 6 hyponatremia, likely acute, and his sodium level is at 128. Rule out a component of CHF versus SIDH infection use. 7 aortic valve replacement/bioprosthetic aortic valve in 2014 8 lethargy and diminished level of consciousness secondary to above, 9 diabetes mellitus type 2 10 hypertension 11 hyperlipidemia 12 gout 13 COPD 14 troponin leak likely secondary to above currently on IV heparin 15 Peripheral vascular disease 16 history of alcoholism 17 Clavicular fracture secondary to fall Plan Prognosis remains poor. The patient remains bacteremic. No plans for surgery. He is considered to be a high surgical risk. He is in a first-degree AV block and the patient does not need a temporary pacer for now. Continue antibiotic treatment hoping that the bacteremia will clear. Continue the rest of the supportive And monitor the sodium level. Cut down the IV fluids to 20 mL an hour. Rest of the medication were reviewed. Case was discussed with the family and the . She understands the poor prognosis of this situation. We'll continue to follow.
[2019-05-10 16:39] LABS: Glucose,Whole Blood 156 mg/dL (75-99)
--- NOTE | 2019-05-10 16:51 | PN ---
PROGRESS NOTE DATE OF SERVICE: 05/10/2019. 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 INTERVAL HISTORY: The patient is currently afebrile. The patient has been breathing comfortably. Denies having any chest pain or cough. No nausea, no vomiting. No abdominal pain or diarrhea. PHYSICAL EXAMINATION: Blood pressure 137/89 with a pulse of 64, temperature 97.7. He is 99% on 2 L nasal cannula. General description is an elderly male lying in bed in no distress. RESPIRATORY SYSTEM: Unlabored breathing with decreased breath sounds at the base. No wheeze. HEART: S1, S2. Regular rate and rhythm. ABDOMEN: Soft. No tenderness. LABS: Hemoglobin 9.2, white count 16.8, BUN of 18, creatinine 0.76. DIAGNOSTIC IMPRESSION AND PLAN: Patient with Enterococcus faecalis bacteremia. Source is likely aortic valve endocarditis in this patient who did have extensive workup, including CT of abdomen and pelvis that was negative for any intraabdominal source. The patient's white count is slightly on the upward trend. That will need to be monitored closely. Keep the patient on ampicillin and gentamycin daily. Blood cultures to document clearance of bacteremia and continue with supportive care. MMODL / IJN: [id number] /
[2019-05-10 20:26] LABS: Glucose,Whole Blood 109 mg/dL (75-99)
[2019-05-10] MEDS: LISINOPRIL 10 MG TAB PO SCH (21:40)
[2019-05-10] MEDS: MONTELUKAST 10 MG TAB PO SCH (21:40)
[2019-05-10] MEDS ORDERED: SODIUM CHLORIDE 0.9% 1,000 ML IV SCH (23:00)
[2019-05-10] MEDS: SODIUM CHLORIDE 0.9% 250 ML IV SCH (23:08)
[2019-05-11] MEDS: SODIUM CHLORIDE 0.9% 1,000 ML IV SCH (00:36)
[2019-05-11] MEDS: AMPICILLIN 2,000 MG in SODIUM CHLORIDE 0.9% 100 ML IVPB SCH ×4 (01:05→12:20)
[2019-05-11] MEDS: SODIUM CHLORIDE 0.9% 250 ML IV SCH ×6 (01:07→11:26)
[2019-05-11] MEDS: HYDROcodone/APAP 5-325MG 1 EACH TAB PO PRN ×2 (01:21→10:16)
[2019-05-11] MEDS: LOPERAMIDE 2 MG CAP PO PRN (02:08)
[2019-05-11 05:17] LABS: Basophils # (A) 0.1 k/uL (0-0.2); Basophils % (A) 0 %; Eosinophils # (A) 0.1 k/uL (0-0.7); Eosinophils % (A) 1 %; HCT 31.7 % (39.0-53.0); HGB 10.1 gm/dL (13.0-17.5); Lymphocytes # (A) 1.2 k/uL (1.0-4.8); Lymphocytes % (A) 5 %; MCH 31.8 pg (25.0-35.0); MCHC 31.8 g/dL (31.0-37.0); MCV 99.8 fL (80.0-100.0); Mean Platelet Volume 9.6; Monocytes # (A) 0.6 k/uL (0-1.0); Monocytes % (A) 2 %; Neutrophils # (A) 22.7 k/uL (1.3-7.7); Neutrophils % (A) 91 %; Platelet Count 162 k/uL (150-450); RBC 3.18 m/uL (4.30-5.90); RDW 13.9 % (11.5-15.5); WBC 25.1 k/uL (3.8-10.6)
[2019-05-11 05:26] LABS: Calcium 7.9 mg/dL (8.4-10.2); Magnesium 1.8 mg/dL (1.6-2.3); Potassium 4.7 mmol/L (3.5-5.1)
[2019-05-11] MEDS ORDERED: GENTAMICIN 70 MG in SODIUM CHLORIDE 0.9% 100 ML IVPB SCH (06:00)
[2019-05-11] MEDS: MAGNESIUM SULFATE-D5W PMX 1 GM in DEXTROSE/WATER 1 100ML.BAG IVPB SCH ×2 (06:21→09:27)
[2019-05-11 06:43] LABS: Glucose,Whole Blood 163 mg/dL (75-99)
[2019-05-11] MEDS: INSULIN ASPART (NovoLOG) 100 UNIT/ML VIAL SQ SCH ×4 (06:53→12:20)
[2019-05-11] MEDS: BUDESONIDE 0.5 MG/2 ML NEBU INHALATION SCH (07:24)
[2019-05-11] MEDS: IPRATROPIUM-ALBUTEROL 3 ML NEB INHALATION SCH ×2 (07:24→10:47)
--- NOTE | 2019-05-11 07:36 | XR ---
EXAMINATION TYPE: XR chest 1V DATE OF EXAM: 05/11/2019 COMPARISON: 05/10/2019 HISTORY: Shortness of breath FINDINGS: There are bilateral pleural effusions with cardiomegaly and bibasilar infiltrate. There is a diffuse interstitial pattern. IMPRESSION: 1. Stable findings most typical of CHF. Correlate clinically to exclude underlying infiltrate.
[2019-05-11 07:57] LABS: INR 0.9 (<1.2); Partial Thromboplastin Time 24.2 sec (22.0-30.0); Prothrombin Time 9.9 sec (9.0-12.0)
[2019-05-11 09:02] VITALS: TEMP 100.3
[2019-05-11] MEDS: ALLOPURINOL 100 MG TAB PO SCH (09:28)
[2019-05-11] MEDS: FUROSEMIDE 20 MG TAB PO SCH (09:29)
[2019-05-11] MEDS: METOPROLOL TARTRATE 25 MG TAB PO SCH (09:29)
[2019-05-11] MEDS: HEPARIN SODIUM,PORCINE 5,000 UNIT/ML 1 ML VIAL SQ SCH (09:29)
[2019-05-11] MEDS: ATORVASTATIN 40 MG TAB PO SCH (09:29)
[2019-05-11] MEDS: ASPIRIN 81 MG PO SCH (09:29)
[2019-05-11] MEDS: MAGNESIUM OXIDE 400 MG TAB PO SCH (09:29)
[2019-05-11] MEDS: LORATADINE 10 MG TAB PO SCH (09:29)
[2019-05-11] MEDS: CHOLESTYRAMINE (WITH SUGAR) 4 GM PACKET PO SCH (09:30)
[2019-05-11] MEDS: PANTOPRAZOLE 40 MG/10 ML VIAL IVP SCH (09:30)
[2019-05-11] MEDS: THIAMINE 100 MG TAB PO SCH (09:30)
--- NOTE | 2019-05-11 11:12 | P.PN ---
Subjective Progress Note Date: 05/11/19 This is a pleasant 68-year-old male past medical history significant for valvular heart disease status post bioprosthetic aortic valve replacement in 2014, peripheral vascular disease status post aortic endarterectomy 2014, diabetes mellitus, hypertension and dyslipidemia. He admits to daily alcohol intake. He does not follow in the office with a [employer]bi investigator. We have been asked to see in consultation for elevated troponin. He initially presented to the emergency department with symptoms of shortness of breath, cough and fall. He is unsure. It corresponding loss of consciousness. He states that he lost his balance falling on the left side of his body. He was noted to be febrile on admission with a temperature of 101.7. The patient states that he was sick since March 2019. Back then he was in [place]. On and off he was having fever. He was seen in [place] emergency department and he was given treatment and the exact treatment is not known to us at this point in time. The patient himself is a very poor historian. I think is lethargic and somewhat encephalopathic and is unable to volunteer detailed history. He came in to the hospital regarding these ongoing problems. The hospital, the patient was found to have a white cell count of 10.8. His initial lactic acid level was 3 and it dropped down to 1.0. Troponin was slightly positive at 0.657. ProBNP level was 4860. CT angiogram of the chest was done and was negative for pulmonary embolism. There was a soft tissue collection superior aspect of the left sternoclavicular joint at the level of the third and had with some tissue thickening and there is involvement of the sternum and there is also recommended the undisplaced fracture of the left clavicle. On examination, the patient is sore in the involved area without any significant erythema or warmth. For now he is on examination of Rocephin and Zithromax. He does have a cardiac murmur. He has a bioprosthetic aortic valve that was placed in 2014. On today's evaluation the patient is being seen in follow-up on 05/05/2019. The patient remains on a VATS with a tidal volume of 550. His current meds as the patient is at 10.6. He is pulling approximately 500 mL of tidal volume while being on this current moles. Overnight the patient became more restless and agitated. He apparently drinks and he is enjoying for around a week or 2 and he became confused. He was placed on the CIWA protocol and the patient was given Ativan where he received a total of 1.5 mg of Ativan. He remains on broad- spectrum antibiotics. He has been on a combination of Unasyn and vancomycin. Protocol troponin level is elevated. He was supposed to have a aspiration of the chest wall abscess/collection by interventional radiology. He was still seeking a consent from the significant other. Interventional radiology supposed to undergo this drainage of the possible chest wall abscess today once consent is obtained. On 05/06/2019 patient is seen in follow-up in intensive care unit, he is more arousable today, but remains confused, still somnolent, but opens eyes, and answers questions, but inattentive. Positive CAM ICU score. Off BiPAP support currently, he is on 2 L of oxygen and the pulse ox of 99 200%, he is afebrile, in sinus mechanism with a rate of 76, blood pressures 101/69, no vasoactive drips, maintenance IV fluids 0.9 normal saline at a rate of 100, patient is getting thiamine replacement and MVI replacement at a rate of 50 ML per hour. Patient has enterococcus D bacteremia on 2 separate blood cultures, follow blood cultures are negative thus far, he is on a culmination of Unasyn and vancomycin for antibiotics. Urinalysis without signs of infection, no significant cough or congestion, lung sounds reveal diminished breath sounds with mild wheezing. Today's labs reviewed, showing white blood cell count of 12.5, hemoglobin of 10.4, serum sodium 1:30, potassium is 4.2, CO2 is 20, BUN of 22 creatinine 0.59. Patient is producing adequate urine output, and the order of 100-200 ML per hour. Transthoracic echocardiogram did not show evidence of vegetation and showed adequately functioning bioprosthetic aortic valve. Yesterday patient underwent ultrasound-guided needle aspiration biopsy of the left sternoclavicular mass however there was only of droplet of blood aspirated. Cardiology is following, and will be requested to perform transesophageal echocardiogram to rule out possibility of endocarditis. On 05/07/2019 patient seen in follow-up in the intensive care unit, this morning he had his transesophageal echocardiogram by Dr. Babar Kulkarni, and patient was found to have vegetation on his bioprosthetic aortic valve. 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 Blood cultures from 05/04/2019 positive for Enterococcus faecalis, 05/05/2019 were positive for group D enterococcus. Patient is currently on Unasyn and vancomycin. This morning he seen in the intensive care unit, she is lethargic, but arouses to verbal stimuli, he still under the effect of fentanyl and Versed given for the transesophageal echocardiogram. Hemodynamically patient stable, he is in sinus mechanism with a rate of 74 BPM, blood pressures 104/65, patient is on 2 L of oxygen with a pulse ox of 96%, lung sounds reveal diminished breath sounds bilaterally, some scattered crackles, no wheezes, Pierce catheter is in place and patient is producing adequate amount of urine, patient is on IV fluids in the form of MVI at a rate of 50 ML per hour, and 0.9 normal saline at a rate of 50 ML per hour, he is on clear liquid diet yesterday, today we can advance his diet as tolerated once the patient is more awake. On 05/08/2019 patient seen in follow-up in the intensive care unit, more awake today, responsive, he is oriented 3, he remains on a combination of Unasyn and vancomycin for enterococcus faecalis bacteremia, follow-up blood cultures are showing gram-positive cocci in chains, final culture is pending, we'll repeat another set of blood cultures. Today's lab work has been reviewed showing blood cell count of 12.0, hemoglobin of 10.9, sodium is improving, up to 134, potassium is 4.9, BUN of 13 creatinine 0.56. ID service is following, CT surgery consultation was noted, no plans for surgical intervention, overall clinically seems to be improving, dyspneic with exertion, lung sounds reveal bibasilar crackles, denies any abdominal pain, denies any nausea or vomiting no diarrhea, he is tolerating oral intake, he is on 2 L of oxygen with a pulse ox of 96%. Patient was working with the physical therapy yesterday and he was up to the chair The patient is seen today 05/09/2019 in follow-up in the intensive care unit. C urrently resting in bed. Awake, alert. He was having increasing shortness of breath, Given additional Lasix. Chest x-ray reveals bilateral lower lobe infiltrates with small effusion and mild CHF. Increased peripheral edema. IV from 100 ML's per hour to KVO. blood cultures positive for enterococcus. White count count 16.3. Hemoglobin 9.9. Creatinine 0.73. C. diff screen negative. Currently on ampicillin and gentamicin. Rhythm with some A-V dissociation. On 05/10/2019, the patient is still doing poorly. he is lethargic. He is sleeping most of the time. He is arousable, however he would go back to sleep if left unstimulated. He does have some left eye droop. He has difficulties w ith coordination and since of that and he drops things easily such as cups or utensils while having to be fed. The patient has no headache. No neck stiffness. No fever. The blood cultures are positive with group D enterococcus and the patient is still on a combination of ampicillin and gentamicin. The white cell count is at 16.8. He is afebrile. Sodium level is at 128. Hemoglobin is at 9.2. He has a first-degree AV block on today's rhythm strips. He was having some A-V dissociation on earlier EKG findings which doesn't seem to be the case for today. Cardiology is on the case. Cardiac thoracic surgery is on the case. No plans to do any surgical intervention and the patient has a very poor baseline performance and functional status. On 05/11/2019, the patient is doing extremely poor and worsening yesterday. He is febrile. He is diaphoretic. He is more short of breath. Urine output has dropped. He is having some new onset neurologic deficits with weakness in the right upper extremity. Blood culture has yielded positive enterococcal growth and the patient continues to have persistent bacteremia. He remains in a sinus rhythm with a prolonged first-degree AV block and a prolonged MS.. The white cell count is up to 25. Hemoglobin is at 10.1. The patient has also become acidotic and the serum bicarb is up to 17. Renal function shows a creatinine of 1.04. Sodium level is also down and is down to 126. The patient is awake. Is a bit uncomfortable and more short of breath on today's evaluation. His skin is mottled and lower extremity especially in the thigh area and there is diminished pulses in extremities are becoming more cold and clammy. He remains on 2 L of oxygen by nasal cannula. No significant tachycardia. He is becoming more tachypneic. He was awake and alert and I had a discussion with him. We did provide him his prognosis is obviously poor based on presence of persistent bacteremia that occurred due to an infected prosthetic aortic valve and the patient has embolized his brain and he has signs of multisystem organ failure for now. I think is going progressive into shock state. Objective - Vital Signs Vital signs: Vital Signs Temp 100.3 F H 05/11/19 09:00 Pulse 53 L 05/11/19 10:48 Resp 25 H 05/11/19 10:00 BP 126/71 05/11/19 10:00 Pulse Ox 95 05/11/19 10:00 Intake & Output 05/10/19 05/11/19 05/11/19 18:59 06:59 18:59 Intake Total 1670 1055 420 Output Total 685 245 45 Balance 985 810 375 Weight 101.6 kg Intake: IV 520 655 420 Ampicillin 2,000 mg In 300 200 100 Sodium Chloride 0.9% 100 ml @ 200 mls/hr IVPB Q4H [facility] Rx#:[id number] Magnesium Sulfate-D5w Pmx 200 1 gm In Dextrose/Water 1 100ml.bag @ 100 mls/hr IVPB Q1H [facility] Rx#: [id number] Sodium Chloride 0.9% 1, 220 80 000 ml @ 20 mls/hr IV . Q24H [facility] Rx#:[id number] Sodium Chloride 0.9% 1, 375 120 000 ml @ 50 mls/hr IV . Q20H [facility] Rx#:[id number] Intake, IV Titration 200 100 Amount Gentamicin in NaCl Iso- 100 Osm Pmx 80 mg In Saline 1 100ml.bag @ 100 mls/hr IVPB Q12H [facility] Rx#: [id number] Magnesium Sulfate-D5w Pmx 200 1 gm In Dextrose/Water 1 100ml.bag @ 100 mls/hr IVPB Q1H [facility] Rx#: [id number] Oral 950 300 Output: Urine 685 245 45 Other: Voiding Method Indwelling Catheter Indwelling Catheter Indwelling Catheter - Exam GENERAL EXAM: Awake and and able to communicate and able to understand his condition and prognosis which was explained to him at length on today's evaluation. HEAD: Normocephalic/atraumatic. EYES: Normal reaction of pupils, equal size. Conjunctiva pink, sclera white. NOSE: Clear with pink turbinates. THROAT: No erythema or exudates. NECK: No masses, no JVD, no thyroid enlargement, no adenopathy. CHEST: No chest wall deformity. Symmetrical expansion. Tenderness at the left sternoclavicular junction at the site of the attempted needle aspiration of the sternal abscess LUNGS: Equal air entry with crackles in the posterior bases. Mild wheezing noted CVS: Regular rate and rhythm, normal S1 and S2, no gallops, there is a systolic ejection murmur grade 3-4/6 on the left apex ABDOMEN: Soft, nontender. No hepatosplenomegaly, normal bowel sounds, no guarding or rigidity. EXTREMITIES: No clubbing, no edema, no cyanosis, 2+ pulses and upper and lower extremities. MUSCULOSKELETAL: Muscle strength and tone normal. SPINE: No scoliosis or deformity SKIN: No rashes CENTRAL NERVOUS SYSTEM: Awake and alert, just back to sleep oriented -3. No focal deficits, tone is normal in all 4 extremities. The patient has some droop and the left face and eye area. Poor coordination. Motor weakness is present in all 4 extremities. 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 Obviously cannot ambulate and walk for now. - Labs CBC & Chem 7: 05/11/19 04:35 05/11/19 04:35 Labs: Abnormal Lab Results - Last 24 Hours (Table) 05/10/19 05/10/19 05/10/19 Range/Units 11:56 16:36 20:24 WBC (3.8-10.6) k/uL RBC (4.30-5.90) m/uL Hgb (13.0-17.5) gm/dL Hct (39.0-53.0) % Neutrophils # (1.3-7.7) k/uL Sodium (137-145) mmol/L Carbon Dioxide (22-30) mmol/L BUN (9-20) mg/dL Glucose (74-99) mg/dL POC Glucose (mg/dL) 175 H 156 H 109 H (75-99) mg/dL Calcium (8.4-10.2) mg/dL 05/11/19 05/11/19 05/11/19 Range/Units 04:35 04:35 06:42 WBC 25.1 H (3.8-10.6) k/uL RBC 3.18 L (4.30-5.90) m/uL Hgb 10.1 L (13.0-17.5) gm/dL Hct 31.7 L (39.0-53.0) % Neutrophils # 22.7 H (1.3-7.7) k/uL Sodium 126 L (137-145) mmol/L Carbon Dioxide 17 L (22-30) mmol/L BUN 22 H (9-20) mg/dL Glucose 144 H (74-99) mg/dL POC Glucose (mg/dL) 163 H (75-99) mg/dL Calcium 7.9 L (8.4-10.2) mg/dL Microbiology - Last 24 Hours (Table) 05/08/19 05:31 Blood Culture Gram Stain - Final Blood Blood Culture - Final Enterococcus faecalis 05/09/19 05:40 Blood Culture Gram Stain - Preliminary Blood Blood Culture - Preliminary Group D Enterococcus Assessment and Plan Plan: 1 enterococcus D bacteremia and infective endocarditis, transesophageal ech ocardiogram showed vegetation on the bioprosthetic aortic valve, follow-up blood cultures are positive for enterococcus faecalis, and remained positive as of 05/09/2023 with enterococcus. The patient has developed some occasional cardiac arrhythmia and he is currently in a first-degree AV block with a normal sinus rhythm. He is having new onset neurologic deficits with some weakness in his upper extremity on the right. This is related septic emboli. He has drop in his urine output. He has a low-grade fever and is feeling more diaphoretic and obviously this this is all manifestations of sepsis/bacteremia. He has also dropped his urine output. Creatinine is still stable. The patient got producing significant urine output for now. His extremities are cold and clammy. No pressors yet. He has become more diaphoretic and he seems to be more short of breath. Despite all this, he seems to be having adequate comprehension in mental status on today's evaluation. The patient has also developed worsening his leukocytosis with a white cell count 25.1. 2 septic emboli to the brain, and secondary altered mentation, today mentation is improving, patient is more arousable, and oriented, yet he is having some motor deficits with left eyelid droop in addition to difficulties with coor dination and since of depth. 3 left sternoclavicular joint abscess, unsuccessful ultrasound-guided needle aspiration, with the possibility of sternal bone infection versus a hematoma. The cultures from the sternum came back negative. 4 mild lactic acidosis, improved 5 fever, episodic and current temperature is ranging between 100 point. 100.6 6 hyponatremia, likely acute, and his sodium level is at 126. Rule out a component of CHF versus SIDH infection use. 7 aortic valve replacement/bioprosthetic aortic valve in 2015 8 lethargy and diminished level of consciousness secondary to above, 9 diabetes mellitus type 2 10 hypertension 11 hyperlipidemia 12 gout 13 COPD 14 troponin leak likely secondary to above currently on IV heparin 15 Peripheral vascular disease 16 history of alcoholism 17 Clavicular fracture secondary to fall Plan Prognosis remains poor. Had a lengthy discussion with the patient. Obviously is not a surgical candidate. He continues to have persistent bacteremia. Sepsis and multisystem organ failure. Not a whole lot can be offered to this patient other medical treatment. I medical treatment will ultimately failed and the patient will be going to a shock state. I made recommendations for hospice. I also contacted the POA to arrive and proceed with hospice care if all is in agreement. Discussed the case with cardiac thoracic surgery. Discussed case with cardiology. Very poor prognosis based on the above-mentioned comorbidities. For now. Final decision is made regarding his decision about comfort care measures/hospice.
[2019-05-11 11:28] VITALS: PULSE 55
[2019-05-11 12:17] VITALS: BP 114/46; RESP 26
[2019-05-11] MEDS ORDERED: HYDROcodone/APAP 5-325MG 1 EACH TAB PO PRN (12:38)
[2019-05-11] MEDS ORDERED: MORPHINE SULFATE 2 MG/ML SYRINGE IVP PRN (13:05)
[2019-05-11] MEDS ORDERED: SCOPOLAMINE 1.5MG/72HR PATCH TRANSDERM SCH (14:00)
[2019-05-12] MEDS ORDERED: GENTAMICIN TROUGH DUE 1 EACH MISC MISCELLANE ONE (05:30)
[2019-05-12] MEDS ORDERED: GENTAMICIN IN NACL ISO-OSM PMX 80 MG in SALINE 1 100ML.BAG IVPB SCH (06:00)
[2019-05-12] MEDS ORDERED: GENTAMICIN PEAK DUE 1 EACH MISC MISCELLANE ONE (08:00)
== END 2019-05-11 16:06 | disposition hospice, home (50) | DRG 853 ==
LOC: EC 04:08 → 3SCARD 07:39 → 2SICU 05-05 14:43
PROVIDERS: ADMIT Family Medicine; ATTEND Family Medicine
PROC: 5A09357 Assistance with Respiratory Ventilation, Less than 24 Consecutive Hours, Continuous Positive Airway Pressure (ICD-10-PCS; 2019-05-04)
PROC: 0P9 Upper Bones, Drainage (ICD-10-PCS; principal; 2019-05-05)
PROC: B246ZZ4 Ultrasonography of Right and Left Heart, Transesophageal (ICD-10-PCS; 2019-05-07)
DX: A41.81 Sepsis due to Enterococcus (principal); E43 Unspecified severe protein-calorie malnutrition; G93.41 Metabolic encephalopathy; I33.0 Acute and subacute infective endocarditis; J18.9 Pneumonia, unspecified organism; J96.01 Acute respiratory failure with hypoxia; I63.443 Cerebral infarction due to embolism of bilateral cerebellar arteries; E87.1 Hypo-osmolality and hyponatremia; E87.2 Acidosis; I45.89 Other specified conduction disorders; I76 Septic arterial embolism; J44.0 Chronic obstructive pulmonary disease with (acute) lower respiratory infection; L02.213 Cutaneous abscess of chest wall; R57.9 Shock, unspecified; M86.8X8 Other osteomyelitis, other site; T82.6XXA Infection and inflammatory reaction due to cardiac valve prosthesis, initial encounter; Z68.1 Body mass index [BMI] 19.9 or less, adult; D63.8 Anemia in other chronic diseases classified elsewhere; D69.6 Thrombocytopenia, unspecified; E11.51 Type 2 diabetes mellitus with diabetic peripheral angiopathy without gangrene; E11.65 Type 2 diabetes mellitus with hyperglycemia; E78.5 Hyperlipidemia, unspecified; E87.5 Hyperkalemia; F10.20 Alcohol dependence, uncomplicated; H02.402 Unspecified ptosis of left eyelid; H53.2 Diplopia; I11.0 Hypertensive heart disease with heart failure; I35.8 Other nonrheumatic aortic valve disorders; I44.1 Atrioventricular block, second degree; I50.9 Heart failure, unspecified; M10.9 Gout, unspecified; Z87.891 Personal history of nicotine dependence; S42.002A Fracture of unspecified part of left clavicle, initial encounter for closed fracture; W01.0XXA Fall on same level from slipping, tripping and stumbling without subsequent striking against object, initial encounter; Y83.1 Surgical operation with implant of artificial internal device as the cause of abnormal reaction of the patient, or of later complication, without mention of misadventure at the time of the procedure; Y92.009 Unspecified place in unspecified non-institutional (private) residence as the place of occurrence of the external cause; Z79.82 Long term (current) use of aspirin; Z51.5 Encounter for palliative care; Z79.84 Long term (current) use of oral hypoglycemic drugs; Z66 Do not resuscitate; Z79.899 Other long term (current) drug therapy; Z80.9 Family history of malignant neoplasm, unspecified; Z85.828 Personal history of other malignant neoplasm of skin; Z95.1 Presence of aortocoronary bypass graft; Z95.3 Presence of xenogenic heart valve; R79.89 Other specified abnormal findings of blood chemistry; R26.9 Unspecified abnormalities of gait and mobility; E86.0 Dehydration
CPT/HCPCS: 10160; 36415; 36600; 70553; 71045; 71275; 74176; 80048; 80053; 80170; 80202; 81001; 82803; 82805; 83605; 83735; 83880; 84145; 84484; 85025; 85379; 85610; 85652; 85730; 86140; 87040; 87070; 87077; 87186; 87205; 87324; 87502; 88173; 88305; 93005; 93306; 93312; 93320; 93325; 94640; 94660; 96365; 96376; 99285